=== PATIENT | female | born 1990 | race Caucasian/White ===

== ENCOUNTER 2017-05-13 19:08 | Emergency (ER) | payer BC, MEDICAID, SELFPAY ==
[2017-05-13 19:09] VITALS: BP 142/100; PULSE 74; RESP 18; TEMP 37.2; O2SAT 99; BMI 35.2
[2017-05-13 20:13] LABS: Mucous, Urine 0 SEEN /hpf (<or=2+)
[2017-05-13 20:15] LABS: Color, Urine Red (Yellow); Glucose, Dipstick Normal (Normal); Ketone-Dipstick 5 mg/dl (Negative); Leukocyte Esterase-Dipstick 100 /ul (Negative); Occult Blood-Urine 250 /ul (Negative); Protein-Dipstick 100 mg/dl (Negative); Urine Bilirubin Dipstick Negative (Negative); Urine Clarity Cloudy (Clear)
[2017-05-13 20:16] LABS: Internal QC Validated? YES +Cl - CLEAR BKGD; Pregnancy, Urine Negative Negative
[2017-05-13 20:22] LABS: Nitrite-Dipstick Positive (Negative); Specific Gravity, Urine 1.025 (1.002-1.030); Urine Urobilinogen 1 mg/dl (Normal)
[2017-05-13 20:28] LABS: Red Blood Cells-Urine 50-100 SEEN /hpf (0-5)
[2017-05-13 20:29] LABS: Squamous Epithelial Cells - UA 25-50 SEEN /hpf (5-10)
[2017-05-13 20:30] LABS: White Blood Cells 10-25 SEEN /hpf (0-5)
[2017-05-13 20:34] LABS: Bacteria 3+ /hpf (None Seen)
--- NOTE | 2017-05-13 20:53 | ED.VISSUMM ---
- ER Visit Summary Date of Service: 05/13/17 Chief Complaint: Acute left flank pain History of Present Illness: The patient is a 26 F 3 UTIs and kidney stones. Patient states that she developed sudden onset flank pain about 2 hours ago. Feels like her prior kidney stone. The last time she had she needed to have it removed and had a ureteral stent placed. Physical Examination: Well-appearing young female. Vital signs are stable afebrile. No acute distress. HEENT exam unremarkable. Neck nontender. Lungs clear to auscultation bilaterally. Heart regular rate and rhythm no murmur. Rate about 70. Abdomen is soft and nontender. Normal bowel sounds no peritoneal signs. She is moving all 4 extremities. Neurovascular intact. Back exam nontender. No CVA tenderness. Neurologically she is awake alert with no focal deficits. Test Results: UA is contaminated specimen with 25-50 epithelial cells. He also has 10-20 white cells and vagina red cells positive nitrates. test is negative. CT flank shows a right renal stone but no acute ureteral calculi or anything to account for her pain on the left. A repeat UA was done because the first was contaminated and it is similar with epithelial cells but white cells and nitrates. This will be treated as a UTI. A urine culture was sent. Emergency Department Course and Treatment: Patient only wanted oral meds. She will be treated with one Stryker one Zofran. We given her first dose of Keflex for the UTI. Treatment Plan: Keflex 500 4 times daily for 10 days. Urine culture sent. Discharge home and follow-up with her primary care physician Dr. García or Dr. Javed Castillo her urologist. Disposition: Discharge Impression: Acute left flank pain compared to UTI This note was generated with Locappy dictation software. It may contain incorrect words, spelling, and punctuation that were not noted in review of the chart prior to signing ED Disposition - Plan for ED Patient: Chief Complaint: Flank Pain Referrals: Shahab Rodriguez MD [Primary Care Provider] -
--- NOTE | 2017-05-13 21:00 | CT_ITS ---
STUDY: CT ABDOMEN AND PELVIS WITHOUT CONTRAST REASON FOR EXAM: Female, 26 years old. Left-sided flank pain RADIATION DOSAGE (If Supplied By Facility): CTDIvol = ( 12.48 ) mGy, DLP = ( 685.97 ) mGycm TECHNIQUE: Transaxial images were obtained from the dome of the diaphragm to the symphysis pubis without oral contrast, and without intravenous contrast. Sagittal and coronal images were reconstructed. Individualized dose optimization techniques were used for this CT. COMPARISON: August 31, 2016 FINDINGS: The visualized lung bases are unremarkable. The visualized portions of the heart are within normal limits. Normal liver. Normal gallbladder and extrahepatic biliary system. Normal spleen. Normal pancreas. Normal bilateral adrenal glands. There is a punctate nonobstructing nephrolith on the right. Normal left kidney. Normal visualized stomach. Normal small intestine. Normal colon. The appendix is visualized and appears normal. Normal abdominal aorta. Normal inferior vena cava. Normal retroperitoneum. Normal urinary bladder. The uterus appears normal. Normal abdominal wall. Normal osseous structures. CT/Abdomen/Pelvis without Cont IMPRESSION: Punctate nonobstructing nephrolith on the right. No cause for left-sided flank pain identified. Electronically Signed: Ismael Hernandez MD at 21:53 EST , Service support ,
[2017-05-13 21:44] LABS: Mucous, Urine 0 SEEN /hpf (<or=2+)
[2017-05-13 22:12] LABS: Color, Urine Red (Yellow); Glucose, Dipstick Normal (Normal); Ketone-Dipstick 15 mg/dl (Negative); Leukocyte Esterase-Dipstick 100 /ul (Negative); Nitrite-Dipstick Positive (Negative); Occult Blood-Urine 250 /ul (Negative); Protein-Dipstick 100 mg/dl (Negative); Urine Bilirubin Dipstick Negative (Negative); Urine Clarity Cloudy (Clear); Urine Urobilinogen 4 mg/dl (Normal); Urine pH 6.5 (5.0 - 8.0)
[2017-05-13 22:15] LABS: Bacteria 3+ /hpf (None Seen)
[2017-05-13 22:16] LABS: Squamous Epithelial Cells - UA 5-10 SEEN /hpf (5-10); White Blood Cells 25-50 SEEN /hpf (0-5)
[2017-05-13 22:18] LABS: Red Blood Cells-Urine 50-100 SEEN /hpf (0-5)
--- NOTE | 2017-05-13 23:27 | DCINST.ED_ITS ---
ED Disposition - Plan for ED Patient: Disposition: Home or Assisted Living Chief Complaint: Flank Pain Instructions: ED Kidney Infec Female Prescriptions: Cephalexin [Keflex] 500 mg PO Q6 #30 cap Referrals: Shahab Rodriguez MD [Primary Care Provider] - 3-5 Days Magno Josue MD [STAFF PHYSICIAN] - 1 Week if not improving Additional Instructions: Plenty of fluids and rest. Cranberry juice. Limited [place] for tympanic. Otherwise Tylenol and Motrin for pain. Your CAT scan showed no acute kidney stone. The pain seems to be secondary to a urinary tract infection. He will be started on Keflex and antibiotic he will take 4 times a day till gone. A urine culture was sent your doctor can follow the results of that up to make sure the antibiotic covers the bacteria that is causing the infection. Return if you are feeling worse.
[2017-05-14] MEDS: Ondansetron ODT 4 MG Tablet PO (00:22)
[2017-05-14] MEDS: Cephalexin 250 MG Capsule 500 MG PO (00:22)
[2017-05-14] MEDS: HYDROcodone Bitartrate/Apap 5/325 Tablet PO (00:22)
[2017-05-14 00:23] VITALS: BP 131/80; PULSE 76; RESP 16; O2SAT 98
== END 2017-05-14 00:27 | disposition home or self-care (01) ==
PROVIDERS: Emergency Provider Emergency Medicine; Family Provider Family Medicine; PCP Family Medicine
DX: N39.0 Urinary tract infection, site not specified (principal); R10.9 Unspecified abdominal pain; N20.0 Calculus of kidney; Z87.440 Personal history of urinary (tract) infections; Z87.442 Personal history of urinary calculi; Z72.0 Tobacco use
CPT/HCPCS: 74176; 81001; 81025; 87077; 87086; 87088; 87186; 99282

== ENCOUNTER 2017-08-06 22:41 | Emergency (ER) | payer BC, MEDICAID, SELFPAY ==
[2017-08-06 22:43] VITALS: BP 129/92; PULSE 86; RESP 18; TEMP 36.9; O2SAT 99; BMI 32.5
--- NOTE | 2017-08-06 22:56 | CT_ITS ---
STUDY: CT ABDOMEN AND PELVIS WITHOUT CONTRAST REASON FOR EXAM: Female, 26 years old. Left flank pain RADIATION DOSAGE (If Supplied By Facility): CTDIvol = ( 12.83 ) mGy, DLP = ( 634.67 ) mGycm TECHNIQUE: Transaxial images were obtained from the dome of the diaphragm to the symphysis pubis without oral contrast, and without intravenous contrast. Sagittal and coronal images were reconstructed. Individualized dose optimization techniques were used for this CT. COMPARISON: 05/13/2017 FINDINGS: The visualized lung bases are unremarkable. The visualized portions of the heart are within normal limits. Normal liver. Normal gallbladder and extrahepatic biliary system. Normal spleen. Normal pancreas. Normal bilateral adrenal glands. 2 mm nonobstructing right renal stone. Normal left kidney. Normal visualized stomach. Normal small intestine. Normal colon. The appendix is visualized and appears normal. Normal abdominal aorta. Normal inferior vena cava. Normal retroperitoneum. Normal urinary bladder. Normal abdominal wall. Normal osseous structures. CT/Abdomen/Pelvis without Cont IMPRESSION: No evidence of acute intestinal pathology or acute obstructive uropathy. Electronically Signed: Bryon Baeza MD at 2:22 EDT Tel , Service support ,
[2017-08-06] MEDS: Ondansetron 4 MG/2 ML Vial IV (23:11)
[2017-08-06] MEDS: Ketorolac 30 MG/ML Syringe IV (23:11)
[2017-08-06] MEDS: 0.9% Normal Saline 1,000 ML 1000 ML IV (23:11)
[2017-08-06 23:12] LABS: Mucous, Urine 0 SEEN /hpf (<or=2+); Red Blood Cells-Urine 0 SEEN /hpf (0-5)
[2017-08-06 23:14] LABS: Absolute Neutrophil Count 6.7 X10^3/uL (2.0-7.7); Basophil# 0.04 X10^3/uL; Basophil% 0.4 % (0-1); Eosinophil# 0.09 X10^3/uL; Eosinophils% 0.8 % (0-5); Hematocrit 40.3 % (37-47); Hemoglobin 13.9 g/dl (12.0-15.0); Lymphocyte % 31.7 % (19-41); Mean Corp Hgb Conc 34.5 g/gl (32-36); Mean Corpuscular Hgb 29.9 pg (27.0-32.0); Mean Corpuscular Volume 86.7 fL (81-99); Mean Platelet Vol. 10.2 fl (6.2-12.0); Monocyte# 0.49 X10^3/uL; Monocyte% 4.6 % (0-10); Neutrophil # 6.68 X10^3/uL (2.7-7.7); Neutrophil % 62.3 % (47-70); Platelet Count 250 K/mm3 (150-450); RBC Distribution Width CV 11.9 % (11.6-14.6); RBC Distribution Width SD 37.2 fl (35.1-43.9); Red Blood Count 4.65 M/mm3 (4.2-5.4); White Blood Count 10.7 K/mm3 (4.4-11.0)
[2017-08-06 23:15] LABS: POSITIVE COUNT NO; POSITIVE DIFFERENTIAL NO; POSITIVE MORPHOLOGY NO
[2017-08-06 23:23] LABS: Color, Urine Yellow (Yellow); Glucose, Dipstick Normal (Normal); Ketone-Dipstick 5 mg/dl (Negative); Leukocyte Esterase-Dipstick 500 /ul (Negative); Nitrite-Dipstick Positive (Negative); Occult Blood-Urine 10 /ul (Negative); Protein-Dipstick 30 mg/dl (Negative); Specific Gravity, Urine 1.025 (1.002-1.030); Urine Bilirubin Dipstick Negative (Negative); Urine Clarity Cloudy (Clear); Urine Urobilinogen Normal (Normal)
[2017-08-06 23:30] LABS: Bacteria 3+ /hpf (None Seen); Squamous Epithelial Cells - UA 5-10 SEEN /hpf (5-10)
[2017-08-06 23:31] LABS: White Blood Cells 50-100 SEEN /hpf (0-5)
[2017-08-06 23:32] LABS: Anion Gap 7 (5-15); BUN 17 mg/dL (7-18); BUN/Creat Ratio 21.3 RATIO (10-20); Calcium,Total 8.7 mg/dL (8.5-10.1); Chloride 109 mmol/L (98-107); EST Glomerular Filtration Rate 91 mL/min (>60); Est Glom Filt Rate - Afr Amer 110 mL/min (>60); Estimated Creatinine Clearance 95.05 ml/min; Glucose 111 mg/dL (74-106); Potassium 3.3 mmol/L (3.5-5.1); Sodium Level 141 mmol/L (136-145)
--- NOTE | 2017-08-07 02:41 | ED.DCSUM_ITS ---
- ER Visit Summary Date of Service: 08/07/17 Chief Complaint: Flank pain History of Present Illness: The patient is a 26 F who presents with left flank pain. It initially began about 2 hours ago. It is sharp. She currently rates it as an 8 out of 10. She is concerned because she has a history of kidney stones. She has also noted some odor to her urine and did have a follow-up appointment scheduled with urology. She reports nausea without vomiting. No fevers. Physical Examination: Afebrile vitals are normal Moist mucous membranes Heart regular rate and rhythm Lungs are clear Abdomen soft Patient resting comfortably in no distress Patient does have left CVA tenderness which is mild Test Results: Labs notable for potassium 3.3. Urinalysis shows 500 leukocyte esterase positive nitrates 50-100 WBCs and 3+ bacteria. CT flank shows no acute pathology. Emergency Department Course and Treatment: Patient was treated here with IV fluids Toradol Zofran. She is resting comfortably on reevaluation. She was given a dose of Bactrim and prescription for the same. Although she has left flank pain she is not tachycardic she is not febrile she does not have leukocytosis she does not have vomiting. I do not believe that she has acute pyelonephritis. Was instructed on supportive care. She is instructed on signs and symptoms to monitor for and will follow-up as an outpatient. Treatment Plan: [] Disposition: Discharge Impression: Left flank pain UTI This note was generated with Ambature dictation software. It may contain incorrect words, spelling, and punctuation that were not noted in review of the chart prior to signing ED Disposition - Plan for ED Patient: Chief Complaint: Flank Pain Referrals: Shahab Rodriguez MD [Primary Care Provider] -
--- NOTE | 2017-08-07 02:41 | ED.DEP ---
ED Disposition - Plan for ED Patient: Chief Complaint: Flank Pain Instructions: ED Flank Pain Uncertain Cause, ED UTI Cystitis Female Prescriptions: Smz/Tmp Ds [Bactrim Ds] 1 tab PO BID #10 tab Referrals: Shahab Rodriguez MD [Primary Care Provider] -
[2017-08-07 02:56] VITALS: BP 114/79; PULSE 76; RESP 19; O2SAT 98
--- NOTE | 2017-08-07 02:57 | ED.RN ---
IV DC'ED, CATHETER INTACT, SMALL GAUZE DRESSING PLACED. DISCHARGE INSTRUCTIONS GIVEN TO AND REVIEWED WITH PATIENT, PATIENT DENIES QUESTIONS OR CONCERNS AND VOICES UNDERSTANDING OF DISCHARGE INSTRUCTIONS.
== END 2017-08-07 02:57 | disposition home or self-care (01) ==
PROVIDERS: Emergency Provider Emergency Medicine; Family Provider Family Medicine; PCP Family Medicine
DX: N39.0 Urinary tract infection, site not specified (principal); R10.9 Unspecified abdominal pain; Z87.442 Personal history of urinary calculi
CPT/HCPCS: 74176; 80048; 81001; 85025; 96361; 96374; 96375; 99283; A4216; J2405

== ENCOUNTER 2017-09-22 14:27 | Emergency (ER) | payer BC, MEDICAID, SELFPAY ==
[2017-09-22 14:28] VITALS: BP 165/130; PULSE 99; RESP 13; TEMP 37; O2SAT 99; BMI 31.6
[2017-09-22 14:35] VITALS: BP 169/100; PULSE 93; RESP 17; O2SAT 97
[2017-09-22 14:55] LABS: Red Blood Cells-Urine 0 SEEN /hpf (0-5)
[2017-09-22 15:12] LABS: Color, Urine Yellow (Yellow); Glucose, Dipstick Normal (Normal); Ketone-Dipstick 5 mg/dl (Negative); Leukocyte Esterase-Dipstick 25 /ul (Negative); Nitrite-Dipstick Positive (Negative); Occult Blood-Urine Negative /ul (Negative); Protein-Dipstick 15 mg/dl (Negative); Urine Bilirubin Dipstick Negative (Negative); Urine Clarity Clear (Clear); Urine Urobilinogen Normal (Normal)
[2017-09-22 15:24] LABS: White Blood Cells 0-5 SEEN /hpf (0-5)
[2017-09-22 15:25] LABS: Squamous Epithelial Cells - UA 5-10 SEEN /hpf (5-10)
[2017-09-22 15:26] LABS: Bacteria 3+ /hpf (None Seen); Calcium Oxalate Crystals Ur 1+ /hpf (<or=2+); Mucous, Urine 1+ /hpf (<or=2+)
--- NOTE | 2017-09-22 15:37 | ED.VISSUMM ---
- ER Visit Summary Date of Service: 09/22/17 Chief Complaint: [Back/flank pain] History of Present Illness: The patient is a 26 F [presents the emergency department with complain of pain in her low back. Patient states symptoms started 2 days ago. Patient denies any trauma to her back. Patient states she does have history of frequent kidney stones and frequent UTIs. Patient states that this pain does not feel like a kidney stone. Patient has not had any fevers. She has had no vomiting. She denies dysuria or hematuria. She denies frequency. Patient denies pain radiating down her legs. Physical Examination: [HEENT-PERRLA, EOMI. Cranial nerves II through XII grossly intact. TMs clear. Mucous membranes moist. No adenopathy. Cardiovascular-regular rate and rhythm without murmur or ectopy Lungs-clear to auscultation, chest wall stable without crepitus or subcu emphysema Abdomen-normoactive bowel sounds, soft, nontender, no rebound or rigidity, no peritoneal signs. Minimal CVA tenderness bilaterally. Back exam-patient has no tenderness on palpation of her thoracic or lumbar spine. There is no significant tenderness over the lumbar paraspinal musculature. Patient has negative straight leg raises. Deep tendon reflexes are plus 2 out of 4 bilaterally at the patella and Achilles. Extremities-intact ?4, normal range of motion, normal pulses, atraumatic] Test Results: [Urinalysis obtained was positive for nitrites positive for 25 leukocyte esterase and 0-5 WBCs. Patient did have +3 bacteria.] Emergency Department Course and Treatment: [Patient had a urine culture sent and she was started on Bactrim] Treatment Plan: [We will treat patient with Bactrim for 5 days and advised to follow-up with her primary care physician within next 3-5 days. Patient advised to return if fever, vomiting, worsening pain, or condition should worsen in any way.] Disposition: [Discharged home in stable condition] Impression: UTI Back pain [] This note was generated with BioArray dictation software. It may contain incorrect words, spelling, and punctuation that were not noted in review of the chart prior to signing ED Disposition - Plan for ED Patient: Chief Complaint: Flank Pain Referrals: Shahab Rodriguez MD [Primary Care Provider] -
--- NOTE | 2017-09-22 15:40 | ED.DEP ---
ED Disposition - Plan for ED Patient: Chief Complaint: Flank Pain Instructions: ED UTI Cystitis Female, ED Neck Back Pain General Prescriptions: Smz/Tmp Ds [Bactrim Ds] 1 tab PO BID #10 tab Referrals: Shahab Rodriguez MD [Primary Care Provider] - 3-5 Days
[2017-09-22 15:44] VITALS: BP 169/94; PULSE 73; RESP 16; O2SAT 100
[2017-09-22] MEDS: Smz/Tmp Ds Tablet 1 TABLET PO (15:44)
== END 2017-09-22 15:49 | disposition home or self-care (01) ==
PROVIDERS: Emergency Provider Emergency Medicine; Family Provider Family Medicine; PCP Family Medicine
DX: N39.0 Urinary tract infection, site not specified (principal); M54.5 Low back pain; Z87.442 Personal history of urinary calculi; Z87.440 Personal history of urinary (tract) infections
CPT/HCPCS: 81001; 87086; 87088; 87186; 99283

== ENCOUNTER 2017-10-20 17:34 | Emergency (ER) | payer BC, MEDICAID, SELFPAY ==
[2017-10-20 17:34] VITALS: BP 159/96; PULSE 93; RESP 18; TEMP 36.6; O2SAT 99; BMI 30.4
[2017-10-20 17:56] LABS: Bacteria 0 SEEN /hpf (None Seen); Mucous, Urine 0 SEEN /hpf (<or=2+)
[2017-10-20 18:02] LABS: Color, Urine Yellow (Yellow); Glucose, Dipstick Normal (Normal); Ketone-Dipstick Negative (Negative); Leukocyte Esterase-Dipstick 25 /ul (Negative); Nitrite-Dipstick Negative (Negative); Occult Blood-Urine 250 /ul (Negative); Protein-Dipstick 30 mg/dl (Negative); Specific Gravity, Urine 1.025 (1.002-1.030); Urine Bilirubin Dipstick Negative (Negative); Urine Clarity Sl. Cloudy (Clear); Urine Urobilinogen 1 mg/dl (Normal)
[2017-10-20 18:06] LABS: Internal QC Validated? YES +Cl - CLEAR BKGD; Pregnancy, Urine Negative Negative
--- NOTE | 2017-10-20 18:08 | ED.VISSUMM ---
- ER Visit Summary Date of Service: 10/20/17 Chief Complaint: Flank pain History of Present Illness: The patient is a 26 F with left-sided flank pain that started while work gradually it is not intense, she has history of kidney stone this does not feel like a kidney stone. She has no abdominal pain. No recent hematuria. She denies , no vaginal discharge or dyspareunia. Pain is not mechanical is not worse with twisting turning or bending. Physical Examination: Not appear in acute distress. Moist mucous membranes, no obvious facial deformity No C-spine tenderness supple neck. Regular rate and rhythm without any obvious murmurs Clear lungs bilaterally speaking in full sentences without any obvious respiratory distress Abdomen soft and nontender no guarding or rebound. There is left CVA tenderness but vague and not easily reproduced. Moves all extremities without any difficulty or pain. Skin does not show any obvious rashes or lesions, no trauma. Alert oriented ?3 with no gross focal deficit Emergency Department Course and Treatment: Patient is found to have a urinary tract infection, at this time she appears quite comfortable, she did not get any analgesia. She does not appear like a kidney stone thus I doubt it, however I did warn her that if she has symptoms similar to her kidney stone or severe pain, fever chills she is to return to the emergency department she understands this. At this time I will treat her with antibiotics. Disposition: Discharge stable condition Impression: Urinary tract infection This note was generated with VISup dictation software. It may contain incorrect words, spelling, and punctuation that were not noted in review of the chart prior to signing ED Disposition - Plan for ED Patient: Disposition: Home or Assisted Living Chief Complaint: Back Instructions: ED UTI Cystitis Female Prescriptions: Smz/Tmp Ds [Bactrim Ds] 1 tab PO BID #20 tab Referrals: Shahab Rodriguez MD [Primary Care Provider] - 3-5 Days
[2017-10-20 18:10] LABS: Red Blood Cells-Urine 10-25 SEEN /hpf (0-5); Squamous Epithelial Cells - UA 0-5 SEEN /hpf (5-10); White Blood Cells 0-5 SEEN /hpf (0-5)
[2017-10-20] MEDS: Smz/Tmp Ds Tablet 1 TABLET PO (19:04)
== END 2017-10-20 19:06 | disposition home or self-care (01) ==
PROVIDERS: Emergency Provider Emergency Medicine; Family Provider Family Medicine; PCP Family Medicine
DX: N39.0 Urinary tract infection, site not specified (principal); R10.9 Unspecified abdominal pain; Z87.442 Personal history of urinary calculi
CPT/HCPCS: 81001; 81025; 99283

== ENCOUNTER 2018-02-26 16:28 | Emergency (ER) | payer BC, SELFPAY ==
[2018-02-26 16:29] VITALS: PULSE 103; RESP 18; TEMP 36.2; O2SAT 98; BMI 31.4
--- NOTE | 2018-02-26 17:03 | CT_ITS ---
STUDY: CT ABDOMEN AND PELVIS WITHOUT CONTRAST REASON FOR EXAM: Female, 27 years old. Bilateral flank pain RADIATION DOSAGE (If Supplied By Facility): CTDIvol = ( 9.51 ) mGy, DLP = ( 463.48 ) mGycm TECHNIQUE: Transaxial images were obtained from the dome of the diaphragm to the symphysis pubis without oral contrast, and without intravenous contrast. Sagittal and coronal images were reconstructed. Individualized dose optimization techniques were used for this CT. COMPARISON: 08/07/2017 FINDINGS: The visualized lung bases are unremarkable. The visualized portions of the heart are within normal limits. Normal liver. Normal gallbladder and extrahepatic biliary system. Normal spleen. Normal pancreas. Normal bilateral adrenal glands. There is mild right hydronephrosis and hydroureter. Findings are due to a 4 mm stone in the proximal right ureter best seen on axial image 58. Normal left kidney. Normal visualized stomach. Normal small intestine. Normal colon. The appendix is visualized and appears normal. Normal abdominal aorta. Normal inferior vena cava. Normal retroperitoneum. Normal urinary bladder. Normal abdominal wall. Normal osseous structures. CT/Abdomen/Pelvis without Cont IMPRESSION: 4 mm calcification in the proximal right ureter causing mild right hydronephrosis and hydroureter Electronically Signed: Jaziel Owens MD at 18:18 EST , Service support ,
--- NOTE | 2018-02-26 17:06 | ED.DCSUM_ITS ---
- ER Visit Summary Date of Service: 02/26/18 Chief Complaint: Low back pain History of Present Illness: The patient is a 27 F presenting with low back pain. She states this started this afternoon. She denies trauma. Pain is on both sides. She tried Tylenol at home with no relief. She has history of kidney stones requiring ureteral stents. She denies urinary complaints. Denies fever. Denies other complaints Physical Examination: Vitals are stable. Patient is afebrile. Alert no acute distress. HEENT exam is unremarkable. Neck is supple. Lungs are clear and equal bilaterally. Heart is regular rate and rhythm. Abdomen is soft nontender nondistended. No guarding or rebound Back: Bilateral CVA tenderness Extremities are unremarkable. Skin is warm and dry. Remainder of exam is unremarkable. Emergency Department Course and Treatment: Patient is given morphine, Zofran. Urinalysis shows positive nitrite, 5-10 white blood cells, 50-100 red blood cells. Urine culture is sent. HCG negative. CT abdomen pelvis shows 4 mm calcification in the proximal right ureter causing mild right hydronephrosis and hydroureter. On reevaluation, patient is feeling much improved. She is given prescription for Percocet and Cipro. Discussed with Dr. Josue. Patient will follow-up in the office. Patient is advised to return to ED for any worsening complaints. Disposition: Discharge home Impression: Urolithiasis, UTI This note was generated with Innov[employer] dictation software. It may contain incorrect words, spelling, and punctuation that were not noted in review of the chart prior to signing ED Disposition - Plan for ED Patient: Chief Complaint: Back Referrals: Shahab Rodriguez MD [Primary Care Provider] -
[2018-02-26 17:21] LABS: Mucous, Urine 0 SEEN /hpf (<or=2+); Squamous Epithelial Cells - UA 0 SEEN /hpf (5-10)
[2018-02-26 17:31] LABS: Color, Urine Yellow (Yellow); Glucose, Dipstick Normal (Normal); Ketone-Dipstick Negative (Negative); Leukocyte Esterase-Dipstick 25 /ul (Negative); Nitrite-Dipstick Positive (Negative); Occult Blood-Urine 250 /ul (Negative); Protein-Dipstick Negative (Negative); Specific Gravity, Urine 1.015 (1.002-1.030); Urine Bilirubin Dipstick Negative (Negative); Urine Clarity Cloudy (Clear); Urine Urobilinogen Normal (Normal)
[2018-02-26 17:33] LABS: Internal QC Validated? YES +Cl - CLEAR BKGD; Pregnancy, Urine Negative Negative
[2018-02-26] MEDS: Morphine 4 MG/ML Syringe IV (17:35)
[2018-02-26] MEDS: Ondansetron 4 MG/2 ML Vial IV (17:35)
[2018-02-26 17:39] LABS: Bacteria 3+ /hpf (None Seen); Red Blood Cells-Urine 50-100 SEEN /hpf (0-5)
[2018-02-26 17:40] LABS: White Blood Cells 5-10 SEEN /hpf (0-5)
--- NOTE | 2018-02-26 18:50 | ED.DEP ---
ED Disposition - Plan for ED Patient: Chief Complaint: Back Instructions: ED Stone Renal W Colic Prescriptions: Oxycodone HCl/Acetaminophen [Percocet 5/325] 1 tablet PO Q6H PRN PRN 3 Days #12 tablet PRN Reason: Pain Ciprofloxacin [Cipro] 500 mg PO BID #14 tablet Referrals: Shahab Rodriguez MD [Primary Care Provider] - Magno Josue MD [STAFF PHYSICIAN] -
[2018-02-26 18:51] VITALS: BP 138/81; PULSE 81; RESP 18; O2SAT 97
[2018-02-26] MEDS: Ciprofloxacin 500 MG Tablet PO (19:18)
--- NOTE | 2018-02-26 19:20 | ED.DEP ---
ED Disposition - Plan for ED Patient: Chief Complaint: Back Instructions: ED Stone Renal W Colic Prescriptions: Oxycodone HCl/Acetaminophen [Percocet 5/325] 1 tablet PO Q6H PRN PRN 3 Days #12 tablet PRN Reason: Pain Fluconazole [Diflucan] 150 mg PO X1 #1 tablet Ciprofloxacin [Cipro] 500 mg PO BID #14 tablet Referrals: Shahab Rodriguez MD [Primary Care Provider] - Magno Josue MD [STAFF PHYSICIAN] -
[2018-02-26 19:21] VITALS: BP 127/87; PULSE 65; RESP 16; O2SAT 100
== END 2018-02-26 19:25 | disposition home or self-care (01) ==
PROVIDERS: Emergency Provider Emergency Medicine; Family Provider Family Medicine; PCP Family Medicine
DX: N13.2 Hydronephrosis with renal and ureteral calculous obstruction (principal); N39.0 Urinary tract infection, site not specified; Z87.442 Personal history of urinary calculi
CPT/HCPCS: 74176; 81001; 81025; 87086; 87088; 87186; 96374; 96375; 99283; A4216; J2405

== ENCOUNTER 2018-03-01 | Emergency (ER) | payer BC, SELFPAY ==
[2018-03-01 00:01] VITALS: BP 149/92; PULSE 83; RESP 16; TEMP 36.1; O2SAT 99; BMI 30.9
--- NOTE | 2018-03-01 00:14 | ED.DCSUM_ITS ---
- ER Visit Summary Date of Service: 03/01/18 Chief Complaint: Severe right flank pain History of Present Illness: The patient is a 27 F who was seen on February 26 and diagnosed with a proximal 4 mm right ureteral calculus with hydro-ureter and hydronephrosis, mild. She presents because of increased pain. Last dose of oxycodone 20-30. She does report nausea without vomiting. She reports urgency without frequency, dysuria or hematuria. She also is taking antibiotics since her urine was consistent with infection. She denies fever, chills or night sweats. She denies ocular, visual auditory symptoms. She denies chest pain or palpitations. She denies shortness of breath or difficulty breathing. She does complain of right-sided mid anterior abdominal discomfort as well as right flank pain. She has no other complaints. Please read written note Physical Examination: Vital signs remarkable blood pressure 149/92. Temperature is 97.0?F. HEENT exam is unremarkable. Heart is regular without murmur, gallop or rub. S1 and S2 are normal. Lungs are clear to auscultation with good movement of air bilaterally. Abdomen is soft nontender. There is no guarding or peritoneal findings. Bowel sounds are present and diminished. There is right CVA tenderness noted. There is no skin lesion noted. Neuro exam is nonfocal. Test Results: UA is positive for leukoesterase and blood 25 and 50 respectively. Nitrites negative. No bacteria Emergency Department Course and Treatment: UA was obtained since prior urinalysis was remarkable for pyuria and bacteria. IV was established and she was treated with 15 mg Toradol IV push and 4 mg of Zofran IV push. Treatment Plan: Patient was reassessed at 0108. She is pain-free smiling. Discharge with prescription for NSAID and keep appointment with her urologist Disposition: Discharge to home in stable and improved condition with significant other Impression: Right flank pain secondary to proximal 4 mm right ureteral calculus with hydroureter and hydronephrosis This note was generated with Digifeye dictation software. It may contain incorrect words, spelling, and punctuation that were not noted in review of the chart prior to signing ED Disposition - Plan for ED Patient: Disposition: Home or Assisted Living Chief Complaint: Flank Pain Instructions: ED Stone Renal W Colic Prescriptions: Naproxen [Naprosyn] 500 mg PO BID #14 tab Referrals: Shahab Rodriguez MD [Primary Care Provider] - Keep Elvis appointment
[2018-03-01] MEDS: Ondansetron 4 MG/2 ML Vial IV (00:24)
[2018-03-01] MEDS: Ketorolac 30 MG/ML Syringe 15 MG IV (00:24)
[2018-03-01] MEDS: 0.9% Normal Saline 1,000 ML 250 ML IV (00:24)
[2018-03-01 00:52] LABS: Bacteria 0 SEEN /hpf (None Seen); Color, Urine Yellow (Yellow); Glucose, Dipstick Normal (Normal); Ketone-Dipstick Negative (Negative); Leukocyte Esterase-Dipstick 25 /ul (Negative); Nitrite-Dipstick Negative (Negative); Occult Blood-Urine 50 /ul (Negative); Protein-Dipstick 15 mg/dl (Negative); Urine Bilirubin Dipstick Negative (Negative); Urine Clarity Sl. Cloudy (Clear); Urine Urobilinogen Normal (Normal)
[2018-03-01 00:59] LABS: Red Blood Cells-Urine 0-5 SEEN /hpf (0-5); Squamous Epithelial Cells - UA 0-5 SEEN /hpf (5-10); White Blood Cells 0-5 SEEN /hpf (0-5)
[2018-03-01 01:00] LABS: Mucous, Urine 1+ /hpf (<or=2+)
[2018-03-01 01:32] VITALS: RESP 16
== END 2018-03-01 01:32 | disposition home or self-care (01) ==
PROVIDERS: Emergency Provider Emergency Medicine; Family Provider Family Medicine; PCP Family Medicine
DX: N13.2 Hydronephrosis with renal and ureteral calculous obstruction (principal); R10.9 Unspecified abdominal pain; E66.9 Obesity, unspecified; Z79.2 Long term (current) use of antibiotics
CPT/HCPCS: 81001; 96361; 96374; 96375; 99283; J7030; J2405

== ENCOUNTER 2018-03-02 05:18 | Emergency (ER) | payer BC, SELFPAY ==
[2018-03-01 00:01] VITALS: BMI 30.9
[2018-03-02 05:19] VITALS: BP 172/113; PULSE 85; RESP 16; TEMP 36.6; O2SAT 99; BMI 30.4
[2018-03-02 05:21] VITALS: BP 161/123
[2018-03-02] MEDS: 0.9% Normal Saline 1,000 ML 1000 ML IV (05:38)
[2018-03-02] MEDS: Morphine 4 MG/ML Syringe IV (05:38)
[2018-03-02] MEDS: Ketorolac 30 MG/ML Syringe IV (05:39)
[2018-03-02] MEDS: Ondansetron 4 MG/2 ML Vial IV (05:39)
--- NOTE | 2018-03-02 05:53 | ED.VISSUMM ---
- ER Visit Summary Date of Service: 03/02/18 Chief Complaint: Right flank pain History of Present Illness: The patient is a [address] Rodriguez and her urologist is Dr. Rendon at [facility]. She reports she has right flank pain that began 3 days ago. She was seen in emerge department was diagnosed with a 4 mm right ureteral stone. States that she was discharged on oxycodone. However, she has been vomiting and unable to keep this down. She describes a dull, aching pain in the right flank is 10-10 severity. Is worsened by nothing. Is also relieved by nothing. She reports is been nausea and vomited twice. No blood or emesis. No diarrhea. Her last bowel was yesterday. She has had no melena or hematochezia. No dysuria frequency. She is on her menstrual cycle now. Physical Examination: Vitals: Stable. Afebrile. General: Well-nourished and well-developed. Head: Normocephalic atraumatic. Neck: Supple, no lymphadenopathy. No JVD. Nontender. Cardiovascular: Regular rate and rhythm. No murmurs. Respiratory: No respiratory distress. Clear to auscultation bilaterally. Abdominal: Soft, nontender, nondistended, normal bowel sounds. No guarding, rebound, or peritoneal signs. Back: Nontender. Extremities: Nontender, no edema. Skin: Normal color, no rash. Neurologic: Alert and oriented ?3. Cranial nerves II through XII are intact. Normal strength and sensation. Psych: Normal affect. Test Results: Patient had a UA that was negative yesterday. This was not repeated. She had a urine culture on February 26 that grew greater than 100,000 colony-forming units of E. coli. This is pansensitive. She is on Cipro already. Emergency Department Course and Treatment: Patient had an IV placed. She was given Toradol, morphine, and Zofran IV. She is resting comfortably. Treatment Plan: Patient will be discharged with instructions to continue her naproxen and Percocet. She will be given Zofran for nausea. Instructed to follow-up with her urologist on March 06 as previously scheduled. Return to the emergency department for any worsening symptoms. Disposition: To home in improved and stable condition. Impression: 1. Right ureterolithiasis. This note was generated with Dragon dictation software. It may contain incorrect words, spelling, and punctuation that were not noted in review of the chart prior to signing ED Disposition - Plan for ED Patient: Chief Complaint: Complaint Instructions: ED Stone Renal W Colic Prescriptions: Oxycodone HCl/Acetaminophen [Percocet 5/325] 1 tablet PO Q6H PRN PRN 3 Days #12 tablet PRN Reason: Pain Ondansetron [Zofran Odt] 4 mg PO Q8H PRN PRN #10 tablet PRN Reason: Nausea Referrals: Doctor,Your [STAFF PHYSICIAN] - Keep Elvis appointment
[2018-03-02] MEDS: oxyCODONE 5 MG Tablet PO (07:05)
[2018-03-02] MEDS: Ondansetron ODT 4 MG Tablet PO (07:05)
[2018-03-02 07:07] VITALS: BP 108/71; PULSE 77; O2SAT 97
== END 2018-03-02 07:07 | disposition home or self-care (01) ==
PROVIDERS: Emergency Provider Emergency Medicine; Family Provider Family Medicine; PCP Family Medicine
DX: N20.1 Calculus of ureter (principal); Z87.442 Personal history of urinary calculi; Z79.2 Long term (current) use of antibiotics; Z79.891 Long term (current) use of opiate analgesic
CPT/HCPCS: 96361; 96374; 96375; 99283; J7030; A4216; J2405

== ENCOUNTER 2018-03-12 07:52 | Emergency (ER) | payer BC, SELFPAY ==
[2018-03-12 07:54] VITALS: BP 145/100; PULSE 106; RESP 18; TEMP 35.7; O2SAT 100; BMI 30.3
--- NOTE | 2018-03-12 08:08 | CT_ITS ---
STUDY: CT ABDOMEN AND PELVIS WITHOUT CONTRAST REASON FOR EXAM: Female, 27 years old. Right flank pain. RADIATION DOSAGE (If Supplied By Facility): CTDIvol = ( 9.86 ) mGy, DLP = ( 524.95 ) mGycm TECHNIQUE: Transaxial images were obtained from the dome of the diaphragm to the symphysis pubis without oral contrast, and without intravenous contrast. Sagittal and coronal images were reconstructed. Individualized dose optimization techniques were used for this CT. COMPARISON: Comparison is made with prior study dated February 26, 2018. FINDINGS: The visualized lung bases are unremarkable. The visualized portions of the heart are within normal limits. Normal liver. Normal gallbladder and extrahepatic biliary system. Normal spleen. Normal pancreas. Normal bilateral adrenal glands. Mild degree of right hydronephrosis and hydroureter due to a 5 mm calculus at the right ureterovesical junction. This calculus was previously seen in the proximal right ureter. Normal left kidney. There is a small hiatal hernia. Normal small intestine. Normal colon. The appendix is visualized and appears normal. Normal abdominal aorta. Normal inferior vena cava. Normal retroperitoneum. Normal urinary bladder. Normal abdominal wall. Normal osseous structures. CT/Abdomen/Pelvis without Cont IMPRESSION: 5 mm calculus at the right ureterovesical junction with right hydronephrosis and hydroureter. Electronically Signed: Ambrosio Issa MD at 9:39 EST Tel [phone], Service support ,
--- NOTE | 2018-03-12 08:12 | ED.VISSUMM ---
- ER Visit Summary Date of Service: 03/12/18 Chief Complaint: Right flank pain History of Present Illness: The patient is a 27 F who presents with right low back and flank pain that began this morning. Patient states the pain is similar to prior kidney stone. Patient states the pain is constant. Patient describes the pain as dull and aching. Patient states the pain is over the right lower back and flank area. Patient states nothing makes it better or worse. Patient admits to some nausea and vomiting. Patient denies any dysuria or hematuria. Patient denies any fevers or chills. Physical Examination: Vital signs are stable except for mildly elevated blood pressure 145/100 mild tachycardia of 106. Patient is afebrile. Patient is in no acute distress. Oral mucosa is pink and moist. Neck is supple. Trachea is midline. There is no JVD noted. Heart was regular rate and rhythm. Lungs are clear and equal bilateral. Abdomen is soft. Bowel sounds are normal. There is no tenderness. There is some mild right lower lumbar tenderness. There is no midline tenderness. Cranial nerves II through XII are intact. There are no focal motor or sensory deficits noted. The remaining physical exam is within normal limits. Test Results: CBC and basic metabolic profile were within normal limits. Serum hCG was negative. Urinalysis does not show any evidence of urinary tract infection. There are 25-[address] scan of the abdomen and pelvis shows a 5 mm distal ureteral calculus with hydronephrosis and hydroureter. Emergency Department Course and Treatment: Patient was given IV fluids. Patient was given Toradol and Zofran. Patient had minimal relief with this. Patient was given a dose of morphine. Patient was resting comfortably on reexamination. Patient was given a prescription for Barnum to take at home as needed for pain. Patient was instructed to follow-up with her urologist in 3-5 days. Patient understood and was agreeable with the plan. All questions were answered. Disposition: Discharged home Impression: Right ureteral calculus This note was generated with [employer] dictation software. It may contain incorrect words, spelling, and punctuation that were not noted in review of the chart prior to signing ED Disposition - Plan for ED Patient: Disposition: Home or Assisted Living Chief Complaint: Flank Pain Diagnosis: Right distal ureteral calculus Instructions: ED Stone Renal W Colic Prescriptions: Hydrocodone Bitart/Apap 5-325 [Barnum 5MG-325MG] 1 tab PO Q6H PRN PRN 3 Days #10 tab PRN Reason: Pain Referrals: Shahab Rodriguez MD [Primary Care Provider] -
[2018-03-12] MEDS: Ketorolac 30 MG/ML Syringe IV (08:15)
[2018-03-12] MEDS: 0.9% Normal Saline 1,000 ML 250 ML IV (08:15)
[2018-03-12] MEDS: Ondansetron 4 MG/2 ML Vial IV (08:15)
[2018-03-12 08:29] LABS: Absolute Lymphocyte Count 3.04 X10^3/ul (0.83-4.51); Absolute Neutrophil Count 4.1 X10^3/uL (2.0-7.7); Basophil# 0.03 X10^3/uL; Basophil% 0.4 % (0-1); Eosinophil# 0.21 X10^3/uL; Eosinophils% 2.7 % (0-5); Hematocrit 44.3 % (37-47); Hemoglobin 14.9 g/dl (12.0-15.0); Lymphocyte # 3.04 X10^3/ul (4.0); Lymphocyte % 38.6 % (19-41); Mean Corp Hgb Conc 33.6 g/gl (32-36); Mean Corpuscular Hgb 29.8 pg (27.0-32.0); Mean Corpuscular Volume 88.6 fL (81-99); Mean Platelet Vol. 10.1 fl (6.2-12.0); Monocyte# 0.53 X10^3/uL; Monocyte% 6.7 % (0-10); Neutrophil # 4.06 X10^3/uL (2.7-7.7); Neutrophil % 51.5 % (47-70); Platelet Count 251 K/mm3 (150-450); RBC Distribution Width SD 38.3 fl (35.1-43.9); White Blood Count 7.9 K/mm3 (4.4-11.0)
[2018-03-12 08:30] LABS: POSITIVE COUNT NO; POSITIVE DIFFERENTIAL NO; POSITIVE MORPHOLOGY NO
[2018-03-12 08:40] LABS: Anion Gap 7 (5-15); BUN 16 mg/dL (7-18); BUN/Creat Ratio 20.5 RATIO (10-20); Calcium,Total 8.8 mg/dL (8.5-10.1); Chloride 106 mmol/L (98-107); Creatinine, Serum 0.78 mg/dL (0.55-1.02); EST Glomerular Filtration Rate 93 mL/min (>60); Est Glom Filt Rate - Afr Amer 113 mL/min (>60); Estimated Creatinine Clearance 96.62 ml/min; Glucose 85 mg/dL (74-106); Potassium 3.7 mmol/L (3.5-5.1); Sodium Level 140 mmol/L (136-145)
[2018-03-12 08:59] LABS: Pregnancy, Serum, hCG Quali. NEGATIVE Negative (0-9 Nonpreg)
[2018-03-12 09:03] LABS: Mucous, Urine 0 SEEN /hpf (<or=2+)
[2018-03-12] MEDS: Morphine 4 MG/ML Syringe IV (09:09)
[2018-03-12 09:10] LABS: Color, Urine Yellow (Yellow); Glucose, Dipstick Normal (Normal); Ketone-Dipstick Negative (Negative); Leukocyte Esterase-Dipstick 25 /ul (Negative); Nitrite-Dipstick Negative (Negative); Occult Blood-Urine 250 /ul (Negative); Protein-Dipstick 30 mg/dl (Negative); Specific Gravity, Urine 1.015 (1.002-1.030); Urine Bilirubin Dipstick Negative (Negative); Urine Clarity Sl. Cloudy (Clear); Urine Urobilinogen Normal (Normal)
[2018-03-12 09:17] LABS: Bacteria 1+ /hpf (None Seen); Red Blood Cells-Urine 25-50 SEEN /hpf (0-5); Squamous Epithelial Cells - UA 0-5 SEEN /hpf (5-10); White Blood Cells 0-5 SEEN /hpf (0-5)
[2018-03-12 10:00] VITALS: BP 128/87; PULSE 66; RESP 16; O2SAT 100
== END 2018-03-12 10:02 | disposition home or self-care (01) ==
PROVIDERS: Emergency Provider Emergency Medicine; Family Provider Family Medicine; PCP Family Medicine
DX: N13.2 Hydronephrosis with renal and ureteral calculous obstruction (principal); Z87.442 Personal history of urinary calculi; Z72.0 Tobacco use
CPT/HCPCS: 74176; 80048; 81001; 84703; 85025; 96361; 96374; 96375; 99284; J7030; A4216; J2405

== ENCOUNTER 2018-08-18 23:27 | Emergency (ER) | payer BC, SELFPAY ==
[2018-08-18 23:27] VITALS: BP 166/101; PULSE 87; RESP 18; TEMP 36.6; O2SAT 100; BMI 30.7
[2018-08-18] MEDS: 0.9% Normal Saline 1,000 ML 999 ML IV (23:51)
[2018-08-18] MEDS: Ketorolac 30 MG/ML Syringe IV (23:51)
[2018-08-18 23:52] LABS: Color, Urine Yellow (Yellow); Glucose, Dipstick Normal (Normal); Ketone-Dipstick Negative (Negative); Leukocyte Esterase-Dipstick 25 /ul (Negative); Nitrite-Dipstick Negative (Negative); Occult Blood-Urine 250 /ul (Negative); Protein-Dipstick 15 mg/dl (Negative); Urine Bilirubin Dipstick Negative (Negative); Urine Clarity Sl. Cloudy (Clear); Urine Urobilinogen Normal (Normal)
[2018-08-18 23:53] LABS: Absolute Lymphocyte Count 3.58 X10^3/ul (0.83-4.51); Absolute Neutrophil Count 4.4 X10^3/uL (2.0-7.7); Basophil# 0.03 X10^3/uL; Basophil% 0.3 % (0-1); Eosinophils% 2.3 % (0-5); Hematocrit 42.5 % (37-47); Hemoglobin 14.6 g/dl (12.0-15.0); Lymphocyte # 3.58 X10^3/ul (4.0); Mean Corp Hgb Conc 34.4 g/gl (32-36); Mean Corpuscular Hgb 29.7 pg (27.0-32.0); Mean Corpuscular Volume 86.4 fL (81-99); Mean Platelet Vol. 10.5 fl (6.2-12.0); Monocyte# 0.52 X10^3/uL; Monocyte% 5.9 % (0-10); Neutrophil # 4.39 X10^3/uL (2.7-7.7); Neutrophil % 50.3 % (47-70); Platelet Count 252 K/mm3 (150-450); RBC Distribution Width CV 11.7 % (11.6-14.6); RBC Distribution Width SD 36.7 fl (35.1-43.9); Red Blood Count 4.92 M/mm3 (4.2-5.4); White Blood Count 8.7 K/mm3 (4.4-11.0)
[2018-08-18 23:54] LABS: POSITIVE COUNT NO; POSITIVE DIFFERENTIAL NO; POSITIVE MORPHOLOGY NO
[2018-08-18 23:57] LABS: Internal QC Validated? YES +Cl - CLEAR BKGD; Pregnancy, Urine Negative Negative
[2018-08-18 23:58] LABS: Bacteria 1+ /hpf (None Seen); Mucous, Urine 1+ /hpf (<or=2+); Red Blood Cells-Urine 5-10 SEEN /hpf (0-5); Squamous Epithelial Cells - UA 0-5 SEEN /hpf (5-10); White Blood Cells 0-5 SEEN /hpf (0-5)
[2018-08-19 00:02] LABS: Anion Gap 7 (5-15); BUN 20 mg/dL (7-18); BUN/Creat Ratio 22.1 RATIO (10-20); Calcium,Total 9.1 mg/dL (8.5-10.1); Chloride 105 mmol/L (98-107); EST Glomerular Filtration Rate 78 mL/min (>60); Est Glom Filt Rate - Afr Amer 95 mL/min (>60); Estimated Creatinine Clearance 83.74 ml/min; Glucose 92 mg/dL (74-106); Potassium 3.5 mmol/L (3.5-5.1); Sodium Level 139 mmol/L (136-145)
--- NOTE | 2018-08-19 00:43 | ED.VISSUMM ---
- ER Visit Summary Date of Service: 08/19/18 Chief Complaint: Flank pain History of Present Illness: The patient is a 27 F who presents with mild right flank pain. This is sharp. She also noted some blood in her urine. She denies nausea vomiting diarrhea. No fevers. Physical Examination: Blood pressure 166/101 vitals otherwise unremarkable. Moist mucous membranes Heart regular rate and rhythm Lungs clear Abdomen soft No flank tenderness Alert Test Results: CBC BMP unremarkable. negative. Urinalysis shows 5-10 RBCs, [address] the flank shows no obstructive uropathy, no ureteral calculi. Emergency Department Course and Treatment: Patient was given IV Toradol. Her work-up is essentially unremarkable. She does have nephrolithiasis but no evidence of obstructive uropathy or ureteral calculi. She does have microscopic hematuria. Its possible that she recently passed a stone. She was advised to follow-up as an outpatient. She was discharged. Treatment Plan: [] Disposition: Discharge Impression: Flank pain This note was generated with [employer] dictation software. It may contain incorrect words, spelling, and punctuation that were not noted in review of the chart prior to signing ED Disposition - Plan for ED Patient: Referrals: Shahab Rodriguez MD [Primary Care Provider] -
--- NOTE | 2018-08-19 00:46 | ED.DEP ---
ED Disposition - Plan for ED Patient: Instructions: ED Flank Pain Uncertain Cause Referrals: Shahab Rodriguez MD [Primary Care Provider] -
[2018-08-19 00:53] VITALS: BP 129/70; PULSE 70; RESP 18; O2SAT 97
--- NOTE | 2018-08-19 23:43 | CT_ITS ---
STUDY: CT ABDOMEN AND PELVIS WITHOUT CONTRAST REASON FOR EXAM: Female, 27 years old. Right flank pain with hematuria, history of kidney stones with stent placement in past. RADIATION DOSAGE (If Supplied By Facility): CTDIvol = ( 10.42 ) mGy, DLP = ( 505.24 ) mGycm TECHNIQUE: Transaxial 2.5 mm images were obtained from the dome of the diaphragm to the symphysis pubis without oral contrast, and without intravenous contrast. Sagittal and coronal images were reconstructed. This examination is limited for the evaluation of gastrointestinal, solid organs and vascular structures due to the lack of intravenous and oral contrast. Individualized dose optimization techniques were used for this CT. COMPARISON: CT abdomen pelvis 03/12/2018. 02/25/2018. FINDINGS: The visualized lung bases are unremarkable. The visualized portions of the heart are within normal limits. Normal liver. Normal gallbladder and extrahepatic biliary system. Normal spleen. Normal pancreas. Normal bilateral adrenal glands. 2.5 mm nonobstructing right inferior renal pole calyx barely visualized on previous examination. Previously seen right UVJ calculus has resolved. Normal left kidney. Normal visualized stomach. Normal small intestine. There are multiple colonic diverticula consistent with diverticulosis. The appendix is visualized and appears normal. Normal abdominal aorta. Normal inferior vena cava. Normal retroperitoneum. Normal urinary bladder. Normal abdominal wall. Obesity. Normal osseous structures. CT/Abdomen/Pelvis without Cont IMPRESSION: There is no obstructive uropathy, obstructive renal or ureteral calculi. Small 2.5 mm nonobstructing right inferior renal pole calculus, barely perceived on previous examination. Resolution of previously seen right UVJ calculus with obstruction. Rare colonic diverticula. Electronically Signed: Magaly Stratton MD at 0:40 EDT , Service support ,
== END 2018-08-19 00:54 | disposition home or self-care (01) ==
LOC: ED 23:55
PROVIDERS: Emergency Provider Emergency Medicine; Family Provider Family Medicine; PCP Family Medicine
DX: R10.9 Unspecified abdominal pain (principal); Z87.442 Personal history of urinary calculi; Z72.0 Tobacco use
CPT/HCPCS: 74176; 80048; 81001; 81025; 85025; 96361; 96374; 99283; J7030; A4216

== ENCOUNTER 2019-02-16 17:00 | Emergency (ER) | payer BC, SELFPAY ==
[2019-02-16 17:02] VITALS: BP 148/92; PULSE 88; RESP 12; TEMP 36.7; O2SAT 98; BMI 32.8
--- NOTE | 2019-02-16 17:54 | ED.DCSUM_ITS ---
- ER Visit Summary Date of Service: 02/16/19 Chief Complaint: Back pain History of Present Illness: The patient is a [address] Rodriguez. She reports that she has low back pain that began today. States it was present when she woke this morning. The sharp pain is 10 of 10 with movement 8 out of 10 at rest. She is taking Tylenol and ice with minimal relief. States that it radiates into her right buttock. She denies any numbness or weakness. No problems with her bowels or bladder. No groin numbness. Patient denies any recent trauma. No fall, MVA, or change in activity. No history of IV drug abuse. No fever or other red flags. Physical Examination: Vitals: Stable. Afebrile. General: A&O x 3. NAD. Cardiovascular exam: Regular rate and rhythm, no murmur, rub or gallop. Respiratory exam: Clear to auscultation bilaterally. No wheezes or stridor. Abdominal exam: Soft, nontender, nondistended, normal bowel sounds. No peritoneal signs. Back: Diffuse moderate tenderness to palpation over the lumbar spine and the paraspinous musculature in the lumbar region. No point tenderness. Negative straight leg bilaterally. 5/5 DF, PF, EHL bilaterally. Normal sensation to light touch throughout. Extremity: No clubbing, cyanosis, or edema. Emergency Department Course and Treatment: Patient was treated with a dose of Toradol IM and Flexeril p.o. She is resting comfortably. Treatment Plan: Patient will be discharged with naproxen and Flexeril. Instructed to follow-up with her primary care physician 1 week if not improving. Return to the emergency department for any worsening symptoms. Disposition: To home in improved and stable condition. Impression: 1. Low back pain. This note was generated with [employer] dictation software. It may contain incorrect words, spelling, and punctuation that were not noted in review of the chart prior to signing ED Disposition - Plan for ED Patient: Disposition: Home or Assisted Living Instructions: BACK PAIN (Acute or Chronic) Prescriptions: cycloBENZAPRine HCl [Flexeril] 10 mg PO TID PRN #20 tab PRN Reason: Muscle Spasm Prescription Printed Naproxen [Naprosyn] 500 mg PO BID #14 tab Prescription Printed Referrals: Shahab Rodriguez MD [Primary Care Provider] - 1 Week if not improving
[2019-02-16] MEDS: cycloBENZAPRine HCl 10 MG Tablet PO (18:18)
[2019-02-16] MEDS: Ketorolac 60 MG/2 ML Vial IM (18:19)
== END 2019-02-16 18:55 | disposition home or self-care (01) ==
LOC: ED 18:06
PROVIDERS: Emergency Provider Emergency Medicine; Family Provider Family Medicine; PCP Family Medicine
DX: M54.5 Low back pain (principal); Z87.442 Personal history of urinary calculi; Z72.0 Tobacco use
CPT/HCPCS: 96372; 99282

== ENCOUNTER 2019-03-15 08:34 | Emergency (ER) | payer BC, SELFPAY ==
[2019-03-15 08:35] VITALS: BP 157/104; PULSE 89; RESP 16; TEMP 36.8; O2SAT 100; BMI 30.7
[2019-03-15 09:07] LABS: Bacteria 0 SEEN /hpf (None Seen); Mucous, Urine 0 SEEN /hpf (<or=2+); Red Blood Cells-Urine 0 SEEN /hpf (0-5)
[2019-03-15] MEDS: Ondansetron 4 MG/2 ML Vial IV (09:12)
[2019-03-15] MEDS: Ketorolac 30 MG/ML Syringe IV (09:12)
[2019-03-15 09:14] LABS: Internal QC Validated? YES +Cl - CLEAR BKGD; Pregnancy, Urine Negative Negative
[2019-03-15 09:15] LABS: Color, Urine Yellow (Yellow); Glucose, Dipstick NEGATIVE (Normal); Urine Clarity Sl. Cloudy (Clear)
[2019-03-15 09:16] LABS: Ketone-Dipstick 5 mg/dl (Negative); Leukocyte Esterase-Dipstick 25 /ul (Negative); Nitrite-Dipstick Negative (Negative); Occult Blood-Urine Negative /ul (Negative); Protein-Dipstick 15 mg/dl (Negative); Specific Gravity, Urine 1.025 (1.002-1.030); Urine Bilirubin Dipstick Negative (Negative); Urine Urobilinogen 1 mg/dl (Normal)
[2019-03-15 09:20] LABS: Squamous Epithelial Cells - UA 0-5 SEEN /hpf (5-10); White Blood Cells 0-5 SEEN /hpf (0-5)
--- NOTE | 2019-03-15 09:26 | ED.DCSUM_ITS ---
- ER Visit Summary Date of Service: 03/15/19 Chief Complaint: Right lower back pain History of Present Illness: The patient is a 28 F who has right lower back pain. She states it started yesterday and got worse this morning. It starts in the right lower back and radiates straight down into her hip. It does not wrap around to her groin. Nothing makes the pain better or worse. She denies hematuria. She does have a history of kidney stones. Her last episode was last year. She took Tylenol yesterday which did not help with her pain. She does have some nausea but denies any vomiting. She denies any falls or trauma. Physical Examination: Vital signs reviewed. HEENT exam unremarkable. Heart is regular rate and rhythm without murmurs. Lungs are clear to auscultation. Abdomen is soft and nontender. Extremities reveal no edema. Skin exam normal. Neurologic exam normal. Test Results: Analysis has trace leukocytes with no red blood cells or white blood cells Emergency Department Course and Treatment: The patient was given Toradol and Zofran. Upon reevaluation her pain is much improved. She has no red or white blood cells in her urine. It does not appear to be pyelonephritis or kidney stones. This is likely muscular since it does radiate down into the hip. I will treat her with naproxen and Phenergan for home. She will need to call her doctor for follow-up. Treatment Plan: [] Disposition: Discharge Impression: Right lower back pain This note was generated with [employer] dictation software. It may contain incorrect words, spelling, and punctuation that were not noted in review of the chart prior to signing ED Disposition - Plan for ED Patient: Referrals: Shahab Rodriguez MD [Primary Care Provider] -
--- NOTE | 2019-03-15 09:28 | ED.DEP ---
ED Disposition - Plan for ED Patient: Disposition: Home or Assisted Living Instructions: BACK PAIN (Acute or Chronic) Prescriptions: Naproxen [Naprosyn] 500 mg PO BID PRN #20 tab Prescription Printed proMETHazine tablet [Phenergan] 25 mg PO Q6H PRN PRN #10 tab PRN Reason: Nausea Prescription Printed Referrals: Shahab Rodriguez MD [Primary Care Provider] -
[2019-03-15 09:36] VITALS: BP 124/78; PULSE 84; RESP 18; O2SAT 99
== END 2019-03-15 09:38 | disposition home or self-care (01) ==
PROVIDERS: Emergency Provider Emergency Medicine; Family Provider Family Medicine; PCP Family Medicine
DX: M54.5 Low back pain (principal); Z87.442 Personal history of urinary calculi; Z72.0 Tobacco use
CPT/HCPCS: 36415; 81001; 81025; 96374; 96375; 99283; A4216; J2405

== ENCOUNTER 2019-05-12 00:03 | Emergency (ER) | payer BC, SELFPAY ==
[2019-05-12 00:04] VITALS: BP 138/100; PULSE 82; RESP 18; TEMP 36.7; O2SAT 98; BMI 30.7
--- NOTE | 2019-05-12 00:17 | CT_ITS ---
STUDY: CT ABDOMEN AND PELVIS WITHOUT CONTRAST REASON FOR EXAM: Female, 28 years old. Flank pain and hematuria TECHNIQUE: Transaxial images were obtained from the dome of the diaphragm to the symphysis pubis without oral contrast, and without intravenous contrast. Sagittal and coronal images were reconstructed. Individualized dose optimization techniques were used for this CT. COMPARISON: None. FINDINGS: The visualized lung bases are unremarkable. The visualized portions of the heart are within normal limits. Normal liver. Normal gallbladder and extrahepatic biliary system. Normal spleen. Normal pancreas. Normal bilateral adrenal glands. Normal right kidney. Normal left kidney. Normal visualized stomach. Normal small intestine. Diverticular disease of the proximal sigmoid colon without localized inflammation. The appendix is visualized and appears normal. Normal abdominal aorta. Normal inferior vena cava. Normal retroperitoneum. Normal urinary bladder. Normal reproductive structures. Normal abdominal wall. Normal osseous structures. CT/Abdomen/Pelvis without Cont IMPRESSION: 1. No acute intra-abdominal abnormality. 2. Minimal proximal sigmoid colonic diverticulosis with no evidence of acute diverticulitis. Electronically Signed: Dixon Mims MD at 1:30 EST Tel , Service support ,
--- NOTE | 2019-05-12 00:19 | ED.DCSUM_ITS ---
History of Present Illness Chief Complaint: Flank Pain Detail of Chief Complaint: Left flank pain Informant: Patient Onset: Today Context: Gradual Onset Timing: Waxes and wanes Current Severity: Moderate Maximum Severity: Moderate Narrative: Patient presents with severe left flank pain and hematuria. She reports a history of kidney stones. She has required surgery for some of her kidney stones. She denies dysuria or frequency. She denies possibility of . Last menstrual cycle was April 24. She typically follows with Dr. Rendon, urology with [facility]. - Past Medical History (1) Kidney stones Status: Chronic Past Medical History - Allergies and Home Meds Allergies/Adverse Reactions: Allergies No Known Allergies Allergy (Verified 02/16/19 17:02) Primary Care Physician: Shahab Rodriguez MD [Primary Care Provider] - Doctors: Dr. Rendon, urology at [facility] Prior records reviewed: Yes Smoking Status: Current every day smoker Review of Systems General: Denies: Chills, Fever Eyes: Denies: Visual changes - bilaterally ENT: Denies: Bilateral ear pain Cardiovascular: Denies: Chest pain Respiratory: Denies: Dyspnea, Cough Gastrointestinal: Reports: Abdominal pain - Left flank pain. Denies: Vomiting, Diarrhea Genitourinary: Reports: Hematuria. Denies: Dysuria Musculoskeletal: Reports: Back pain - Left flank pain Skin: Denies: Rash Neurological: Denies: Headache Hematologic: Denies: Easy bruising Allergy: Denies: Uticaria Physical Exam Vital Signs/Narrative: Vital Signs Temp Pulse Resp BP Pulse Ox 05/12/19 00:04 98.1 F 82 18 138/100 H 98 Inital Vital Signs reviewed: Yes General: Well nourished, Well developed Head: Normocephalic ENT: Moist mucous membranes Neck: Supple Cardiovascular: Regular rate, Regular rhythm Respiratory: No distress, CTA bilaterally Abdomen: Soft, Nontender, Hypoactive bowel sounds Back: Negative for: CVA tenderness Extremities: Nontender Skin: Normal color, No rash Neurological: Alert, Oriented x3 Psychological: Normal affect Diagnostic/Tx/Re-eval 05/12/19 00:17 Abdomen/Pelvis without Cont [CT] Stat Laboratory Results 05/12/19 05/12/19 05/12/19 00:20 00:20 00:20 WBC 10.2 RBC 4.38 Hgb 13.2 Hct 38.8 MCV 88.6 MCH 30.1 MCHC 34.0 RDW Std Deviation 37.7 RDW Coeff of Maciel 11.8 Plt Count 246 MPV 10.3 Immature Gran % (Auto) 0.300 Neut % (Auto) 57.5 Lymph % (Auto) 34.4 [place] % (Auto) 5.7 Eos % (Auto) 1.5 Baso % (Auto) 0.6 Absolute Neuts (auto) 5.9 Absolute Lymphs (auto) 3.50 Nucleated RBC % 0 Sodium 137 Potassium 4.7 Chloride 109 H Carbon Dioxide 23.0 Anion Gap 5 BUN 21 H Creatinine 0.72 Estim Creat Clear Calc 103.74 Est GFR (MDRD) Af Amer 122 Est GFR (MDRD) Non-Af 101 BUN/Creatinine Ratio 29.0 H Glucose 84 Calcium 8.8 Serum , Qual NEGATIVE - Medical Decision Making Patient is given Toradol, morphine, Zofran, and IV fluids. CT scan is ordered and pending at this time. Blood work and urinalysis are unremarkable. This will be signed out to oncoming physician for final disposition. ED Disposition - Plan for ED Patient: Referrals: Shahab Rodriguez MD [Primary Care Provider] -
[2019-05-12 00:36] LABS: Absolute Neutrophil Count 5.9 X10^3/uL (2.0-7.7); Basophil# 0.06 X10^3/uL; Basophil% 0.6 % (0-1); Eosinophil# 0.15 X10^3/uL; Eosinophils% 1.5 % (0-5); Hematocrit 38.8 % (37-47); Hemoglobin 13.2 g/dL (12.0-15.0); Lymphocyte % 34.4 % (19-41); Mean Corpuscular Hgb 30.1 pg (27.0-32.0); Mean Corpuscular Volume 88.6 fL (81-99); Mean Platelet Vol. 10.3 fl (6.2-12.0); Monocyte# 0.58 X10^3/uL; Monocyte% 5.7 % (0-10); NRBC Flagged by Analyzer 0 % (0-5); Neutrophil # 5.85 X10^3/uL (2.7-7.7); Neutrophil % 57.5 % (47-70); Platelet Count 246 K/mm3 (150-450); RBC Distribution Width CV 11.8 % (11.6-14.6); RBC Distribution Width SD 37.7 fl (35.1-43.9); Red Blood Count 4.38 M/mm3 (4.2-5.4); White Blood Count 10.2 K/mm3 (4.4-11.0)
[2019-05-12] MEDS: 0.9% Normal Saline 1,000 ML 1000 ML IV (00:41)
[2019-05-12 00:42] LABS: Internal QC Validated? YES +Cl - CLEAR BKGD; Pregnancy, Serum, hCG Quali. NEGATIVE Negative
[2019-05-12] MEDS: Ondansetron 4 MG/2 ML Vial IV (00:42)
[2019-05-12] MEDS: Morphine 4 MG/ML Syringe IV (00:42)
[2019-05-12] MEDS: Ketorolac 30 MG/ML Syringe IV (00:42)
[2019-05-12 00:48] LABS: Anion Gap 5 (5-15); BUN 21 mg/dL (7-18); Calcium,Total 8.8 mg/dL (8.5-10.1); Chloride 109 mmol/L (98-107); Creatinine, Serum 0.72 mg/dL (0.55-1.02); EST Glomerular Filtration Rate 101 mL/min (>60); Est Glom Filt Rate - Afr Amer 122 mL/min (>60); Estimated Creatinine Clearance 103.74 ml/min; Glucose 84 mg/dL (74-106); Potassium 4.7 mmol/L (3.5-5.1); Sodium Level 137 mmol/L (136-145)
[2019-05-12 00:55] LABS: Color, Urine Yellow (Yellow); Glucose, Dipstick Normal (Normal); Ketone-Dipstick 5 mg/dl (Negative); Leukocyte Esterase-Dipstick Negative /ul (Negative); Mucous, Urine 0 SEEN /hpf (<or=2+); Nitrite-Dipstick Negative (Negative); Occult Blood-Urine Negative /ul (Negative); Protein-Dipstick Negative (Negative); Specific Gravity, Urine 1.025 (1.002-1.030); Urine Bilirubin Dipstick Negative (Negative); Urine Clarity Clear (Clear); Urine Urobilinogen 1 mg/dl (Normal)
[2019-05-12 01:01] LABS: Bacteria 1+ /hpf (None Seen); Red Blood Cells-Urine 5-10 SEEN /hpf (0-5); Squamous Epithelial Cells - UA 5-10 SEEN /hpf (5-10); Transitional Epithelial - Ur 0-5 SEEN /hpf (0-5); White Blood Cells 5-10 SEEN /hpf (0-5)
--- NOTE | 2019-05-12 01:38 | ED.DEP ---
ED Disposition - Plan for ED Patient: Instructions: KIDNEY STONE, Passed Referrals: Shahab Rodriguez MD [Primary Care Provider] -
[2019-05-12 01:46] VITALS: BP 135/86; PULSE 76; RESP 15; O2SAT 97
== END 2019-05-12 01:47 | disposition home or self-care (01) ==
LOC: ED 00:29
PROVIDERS: Emergency Provider Emergency Medicine; PCP Family Medicine
DX: K57.30 Diverticulosis of large intestine without perforation or abscess without bleeding (principal); Z87.442 Personal history of urinary calculi; F17.200 Nicotine dependence, unspecified, uncomplicated
CPT/HCPCS: 74176; 80048; 81001; 84703; 85025; 96361; 96374; 96375; 99282; J7030; A4216; J2405

== ENCOUNTER 2020-07-18 22:49 | Emergency (ER) | payer BC, SELFPAY ==
[2020-07-18 22:50] VITALS: BP 168/115; PULSE 82; RESP 15; TEMP 36.7; O2SAT 97; BMI 33.3
--- NOTE | 2020-07-18 23:12 | CT_ITS ---
STUDY: CT ABDOMEN AND PELVIS WITHOUT CONTRAST REASON FOR EXAM: Female, 29 years old. Kidney Stone RADIATION DOSAGE (If Supplied By Facility): CTDIvol = ( 19.82 ) mGy, DLP = ( 950.58 ) mGycm TECHNIQUE: Transaxial images were obtained from the dome of the diaphragm to the symphysis pubis without oral contrast, and without intravenous contrast. Sagittal and coronal images were reconstructed. Individualized dose optimization techniques were used for this CT. COMPARISON: None. FINDINGS: The visualized lung bases are unremarkable. The visualized portions of the heart are within normal limits. Normal liver. Normal gallbladder and extrahepatic biliary system. Normal spleen. Normal pancreas. Normal bilateral adrenal glands. Normal right kidney. Normal left kidney. Normal visualized stomach. Normal small intestine. Normal colon. The appendix is visualized and appears normal. Significant fecal retention throughout the colon. Normal abdominal aorta. Normal inferior vena cava. Normal retroperitoneum. Normal urinary bladder. Unremarkable uterus Normal abdominal wall. Normal osseous structures. CT/Abdomen/Pelvis without Cont IMPRESSION: Constipation. Unremarkable appendix. No evidence of urolithiasis Electronically Signed: Tra West DO at 0:12 EDT Tel , Service support ,
--- NOTE | 2020-07-18 23:14 | EX.ED.DYSGE1 ---
HPI History of Present Illness Chief Complaint: Flank Pain Narrative Narrative: Patient presents with right flank pain that started about 4 to 5 hours ago. It is sharp stabbing it is waxing and waning. At this time she is relatively comfortable. She also noticed blood in her urine. No current abdominal pain. No fever chills. No left-sided abdominal pain no chest pain or shortness of breath. She does have a history of kidney stones and this feels similar. She denies . PFSH PFS Home Medications sulfamethoxazole-trimethoprim [Bactrim DS] 1 tab PO BID #6 tab 07/19/20 [Rx Last Taken Unknown] Allergy/AdvReac Type Severity Reaction Status Date / Time No Known Allergies Allergy Verified 07/18/20 22:52 Social History Smoking Status: Former smoker ROS ROS ED ROS Narrative Past medical history: Reviewed, prior kidney stones. Medications: Reviewed Social history: Noncontributory Review of systems: All systems negative except as indicated General: No fever Eyes: No visual changes ENT: No upper airway congestion, normal voice Neck: No neck pain Cardiovascular: No chest pain Respiratory: No shortness of breath or cough Gastrointestinal: No abdominal pain, nausea vomiting or diarrhea. There is flank pain as in HPI Genitourinary: No dysuria. She has noticed hematuria. Musculoskeletal: Denies myalgias no difficulty with ambulation Skin: No rash Neurological: No memory loss, confusion or any focal weakness Psych: No recent behavioral changes Hematologic: No easy bleeding or easy bruising EXAM Physical Exam Narrative Exam Narrative: Physical exam General: Patient appears relatively comfortable in the bed. Head: Normocephalic, Atraumatic Eyes: Conjunctiva not pale ENT: Moist mucous membranes Neck: Supple, Nontender, No lymphadenopathy Cardiovascular: Regular rate, Regular rhythm Respiratory: No distress, CTA bilaterally Abdomen: Soft, there is slight right side abdominal pain and CVA tenderness no specific right lower abdominal pain no pain at McBurney's. No guarding or rebound. Back: Nontender, Normal Inspection. CVA tenderness as above, no midline pain. Extremities: Nontender, No edema Skin: Normal color, No rash Neurological: Alert, Normal Strength, Normal Sensation Psychological: Normal affect Const Vital Signs: 07/18/20 22:50 Temperature 98.1 F Temperature Source Temporal Pulse Rate 82 Respiratory Rate 15 Blood Pressure 168/115 H Blood Pressure Mean 132 Pulse Ox 97 Oxygen Delivery Method Room Air MDM MDM Lab Data Lab results narrative: Patient does have some blood on her urine as well as some leuk esterases. The CT does not show any kidney stone although she is quite comfortable now and only required Toradol, she may have had a small stone in the past. Regardless I will treat her with antibiotics otherwise I will discharge in stable condition. Labs: Laboratory Results - last 24 hr 07/18/20 07/18/20 07/18/20 23:08 23:08 23:18 WBC 7.3 RBC 4.86 Hgb 14.1 Hct 42.2 MCV 86.8 MCH 29.0 MCHC 33.4 RDW Std Deviation 37.0 RDW Coeff of Maciel 11.5 L Plt Count 270 MPV 9.9 Immature Gran % (Auto) 0.700 Neut % (Auto) 50.4 Lymph % (Auto) 38.7 [place] % (Auto) 6.9 Eos % (Auto) 2.6 Baso % (Auto) 0.7 Absolute Neuts (auto) 3.7 Absolute Lymphs (auto) 2.82 Nucleated RBC % 0 Sodium Potassium Chloride Carbon Dioxide Anion Gap BUN Creatinine Estim Creat Clear Calc Est GFR (MDRD) Af Amer Est GFR (MDRD) Non-Af BUN/Creatinine Ratio Glucose Calcium Urine Color Yellow Urine Clarity Clear Urine pH 6.0 Ur Specific [place] 1.020 Urine Protein Negative Urine Glucose (UA) Normal Urine Ketones Negative Urine Occult Blood 250 H Urine Nitrite Negative Urine Bilirubin Negative Urine Urobilinogen Normal Ur Leukocyte Esterase 100 H Urine RBC 5-10 SEEN Urine WBC 0-5 SEEN Ur Squamous Epith Cells 0-5 SEEN Urine Bacteria RARE Urine Mucus 0 SEEN Urine Test Negative 07/18/20 23:18 WBC RBC Hgb Hct MCV MCH MCHC RDW Std Deviation RDW Coeff of Maciel Plt Count MPV Immature Gran % (Auto) Neut % (Auto) Lymph % (Auto) [place] % (Auto) Eos % (Auto) Baso % (Auto) Absolute Neuts (auto) Absolute Lymphs (auto) Nucleated RBC % Sodium 137 Potassium 3.3 L Chloride 105 Carbon Dioxide 27.0 Anion Gap 5 BUN 16 Creatinine 0.84 Estim Creat Clear Calc 88.12 Est GFR (MDRD) Af Amer 102 Est GFR (MDRD) Non-Af 85 BUN/Creatinine Ratio 19.1 Glucose 75 Calcium 9.2 Urine Color Urine Clarity Urine pH Ur Specific [place] Urine Protein Urine Glucose (UA) Urine Ketones Urine Occult Blood Urine Nitrite Urine Bilirubin Urine Urobilinogen Ur Leukocyte Esterase Urine RBC Urine WBC Ur Squamous Epith Cells Urine Bacteria Urine Mucus Urine Test Radiography Diagnostic Testing: Radiology Impression Abdomen/Pelvis CT 07/18/20 23:12 IMPRESSION: Constipation. Unremarkable appendix. No evidence of urolithiasis Electronically Signed: Tra West DO at 0:12 EDT Tel , Service support , Discharge Plan Triage Chief Complaint: Flank Pain ED Provider: Juan Carlos Castañeda Dx/Rx/DC Orders Clinical Impression: Hematuria, Acute flank pain, UTI (urinary tract infection) Instructions: ED Kidney Stone, Passed, ED Bladder Infection, Female (Adult) Prescriptions: New sulfamethoxazole-trimethoprim [Bactrim DS] 800-160 mg tablet 1 tab PO BID Qty: 6 RF: 0 Primary Care Provider: Care Physician,No Primary Referrals: Deborah Jacobsen MD [STAFF PHYSICIAN] - 2 Days Care Physician,No Primary [Primary Care Provider] -
[2020-07-18 23:16] LABS: Mucous, Urine 0 SEEN /hpf (<or=2+)
[2020-07-18 23:19] LABS: Color, Urine Yellow (Yellow); Glucose, Dipstick Normal (Normal); Ketone-Dipstick Negative (Negative); Leukocyte Esterase-Dipstick 100 /ul (Negative); Nitrite-Dipstick Negative (Negative); Occult Blood-Urine 250 /ul (Negative); Protein-Dipstick Negative (Negative); Urine Bilirubin Dipstick Negative (Negative); Urine Clarity Clear (Clear); Urine Urobilinogen Normal (Normal)
[2020-07-18] MEDS: Ketorolac 15 MG/ML Vial IV (23:22)
[2020-07-18] MEDS: 0.9% Normal Saline 1,000 ML 999 ML IV (23:22)
[2020-07-18 23:24] LABS: Squamous Epithelial Cells - UA 0-5 SEEN /hpf (5-10)
[2020-07-18 23:25] LABS: Bacteria RARE /hpf (None Seen); Red Blood Cells-Urine 5-10 SEEN /hpf (0-5); White Blood Cells 0-5 SEEN /hpf (0-5)
[2020-07-18 23:33] LABS: Internal QC Validated? YES +Cl - CLEAR BKGD; Pregnancy, Urine Negative Negative
[2020-07-18 23:44] LABS: Absolute Lymphocyte Count 2.82 X10^3/uL (0.83-4.51); Absolute Neutrophil Count 3.7 X10^3/uL (2.0-7.7); Basophil# 0.05 X10^3/uL; Basophil% 0.7 % (0-1); Eosinophil# 0.19 X10^3/uL; Eosinophils% 2.6 % (0-5); Hematocrit 42.2 % (37-47); Hemoglobin 14.1 g/dL (12.0-15.0); Lymphocyte # 2.82 X10^3/ul (0.83-4.51); Lymphocyte % 38.7 % (19-41); Mean Corp Hgb Conc 33.4 g/dL (32-36); Mean Corpuscular Volume 86.8 fL (81-99); Mean Platelet Vol. 9.9 fl (6.2-12.0); Monocyte% 6.9 % (0-10); NRBC Flagged by Analyzer 0 % (0-5); Neutrophil # 3.68 X10^3/uL (2.7-7.7); Neutrophil % 50.4 % (47-70); Platelet Count 270 K/mm3 (150-450); RBC Distribution Width CV 11.5 % (11.6-14.6); Red Blood Count 4.86 M/mm3 (4.2-5.4); White Blood Count 7.3 K/mm3 (4.4-11.0)
[2020-07-18 23:46] LABS: Anion Gap 5 (5-15); BUN 16 mg/dL (7-18); BUN/Creat Ratio 19.1 RATIO (10-20); Calcium,Total 9.2 mg/dL (8.5-10.1); Chloride 105 mmol/L (98-107); Creatinine, Serum 0.84 mg/dL (0.55-1.02); EST Glomerular Filtration Rate 85 mL/min (>60); Est Glom Filt Rate - Afr Amer 102 mL/min (>60); Estimated Creatinine Clearance 88.12 ml/min; Glucose 75 mg/dL (74-106); Potassium 3.3 mmol/L (3.5-5.1); Sodium Level 137 mmol/L (136-145)
[2020-07-19] MEDS: Smz/Tmp Ds Tablet 1 TABLET PO (01:29)
== END 2020-07-19 01:31 | disposition home or self-care (01) ==
LOC: ED 23:17
PROVIDERS: Emergency Provider Emergency Medicine
DX: N39.0 Urinary tract infection, site not specified (principal); R31.9 Hematuria, unspecified; R10.9 Unspecified abdominal pain; Z87.891 Personal history of nicotine dependence
CPT/HCPCS: 74176; 80048; 81001; 81025; 85025; 96361; 96374; 99283; J7030; A4216

== ENCOUNTER 2021-03-04 21:43 | Emergency (ER) | payer BC, SELFPAY ==
[2021-03-04 21:44] VITALS: BP 172/113; PULSE 98; RESP 22; TEMP 36.3; BMI 38.0
[2021-03-04 22:25] VITALS: BP 173/113; PULSE 92; RESP 18; O2SAT 97
[2021-03-04 22:29] VITALS: O2SAT 98
--- NOTE | 2021-03-04 22:34 | ED.VIS.DYS ---
HPI History of Present Illness Chief Complaint: Shortness of Breath Informant: patient Onset/Context/Timing Onset: Yesterday Context: sudden Timing: Intermittent and Lasts (30 to 45 minutes) Quality: Positive for Dyspnea on exertion and - (Cannot catch my breath) Worsened by: Exertion Relieved by: Nothing Associated Symptoms cough, fever, subjective and clear sputum; Negative for rhinorrhea, ear pain, sore throat or chills Chest Pain: Positive for Intermittent and Pressure Narrative Narrative: Patient presents with shortness of breath that has been intermittent since yesterday. Patient states it begins rather suddenly. Patient states he feels like she cannot catch her breath. Patient states her episodes last approximately 30 to 45 minutes. Patient states she had one episode last night and one episode tonight. Patient states it is worse with some exertion. Patient states nothing seems to help with it. Patient admits to a cough with some clear sputum. Patient admits to subjective fever but did not take her temperature. Patient states she gets some pressure in her chest whenever she gets the shortness of breath. PE Risk Factors: Negative for Cancer, OCP + Smoking + > 35, Prior DVT or PE, Recent immobilization, Recent surgery and Recent travel [facility] Medical History (Updated 03/04/21 @ 23:[address] Jose Watters DO) Kidney stones Home Medications NK 03/04/21 [History Last Taken Unknown] Allergy/AdvReac Type Severity Reaction Status Date / Time No Known Allergies Allergy Verified 03/04/21 21:44 Surgical History (Updated 03/04/21 @ 22:[address] Jose Watters DO) History of removal of ureteral stent S/P ureteral stent placement Social History Smoking Status: Heavy Smoker (>10/day) ROS ROS ED Constitutional Constitutional ED: Denies chills or fever(s) Eyes Eyes: Denies blurry vision or change in vision ENT ENT ED: Denies rhinorrhea or sore throat Cardiovascular Cardiovascular: Reports chest pain; Denies palpitations Respiratory/Chest Respiratory/Chest: Reports cough, dyspnea and sputum Gastrointestinal Gastrointestinal: Denies nausea or vomiting Genitourinary Genitourinary ED: Reports urinary frequency; Denies dysuria or hematuria Musculoskeletal Musculoskeletal: Reports back pain; Denies neck pain Integumentary Denies abscess or rash Neurologic Neurologic: Denies headache(s) or weakness Allergic/Immunologic Allergic/Immunologic ED: Denies mouth swelling or urticaria EXAM Physical Exam Const Vital Signs: 03/04/21 21:44 03/04/21 22:25 03/04/21 22:29 Temperature 97.4 F L Temperature Source Temporal Pulse Rate 98 92 Respiratory Rate 22 H 18 Respiratory Effort Short of Breath Blood Pressure 172/113 H 173/113 H Blood Pressure Mean 132 133 Pulse Ox 97 Oxygen Delivery Method Room Air Room Air Positive well nourished, well developed and obese General Appearance ED: well developed Nutritional Appearance: obese HEENT Reports moist mucous membranes Neck supple and no JVD Resp normal respiratory effort Auscultation: wheezes expiratory wheezes (Mild end-expiratory wheezes) and throughout Cardio regular rate, regular rhythm and no murmurs GI normal to inspection, nondistended, normoactive bowel sounds and non-tender Palpation: soft Extremity normal to inspection General Extremety ED: Negative for edema or tenderness General Extremity: Negative for edema Neuro oriented x3, CN's II-XII intact bilaterally and no sensory deficits noted Sensorium / Orientation: alert Motor Exam: strength 5/5 throughout Psych mental status grossly normal Skin no rashes or lesions noted MDM MDM MDM Narrative Medical decision making narrative: Portable 1 view chest x-ray was obtained. On my interpretation, lung mead are clear. There is normal cardiac silhouette. Bony thorax is normal. There is no acute process noted. Radiologist also interpreted the x-ray and agrees. COVID-19 rapid antigen was obtained and was negative. CBC and comprehensive metabolic profile were within normal limits. Serum hCG was negative. Patient was given 4 puffs of an albuterol inhaler. Patient feels better on reevaluation. Patient was instructed to follow-up with a primary care physician in 5 to 7 days. Patient was instructed to take Tylenol or ibuprofen as needed for any aches or fevers. Patient understands and is agreeable with the plan. All questions were answered. Lab Data Attestation: I reviewed the patient's lab results. Labs: Laboratory Results - last 24 hr 03/04/21 03/04/21 03/04/21 22:55 22:55 22:55 WBC 9.7 RBC 5.19 Hgb 15.1 H Hct 44.7 MCV 86.1 MCH 29.1 MCHC 33.8 RDW Std Deviation 35.8 RDW Coeff of Maciel 11.4 L Plt Count 290 MPV 10.1 Immature Gran % (Auto) 0.300 Neut % (Auto) 59.2 Lymph % (Auto) 27.7 [place]ois % (Auto) 6.8 Eos % (Auto) 5.1 H Baso % (Auto) 0.9 Absolute Neuts (auto) 5.8 Absolute Lymphs (auto) 2.69 Nucleated RBC % 0 Sodium 139 Potassium 3.9 Chloride 105 Carbon Dioxide 28.0 Anion Gap 6 BUN 13 Creatinine 0.80 Estim Creat Clear Calc 91.68 Est GFR (MDRD) Af Amer 107 Est GFR (MDRD) Non-Af 88 BUN/Creatinine Ratio 16.1 Glucose 100 Calcium 9.1 Total Bilirubin 0.30 AST 18 ALT 34 Alkaline Phosphatase 104 Total Protein 8.0 Albumin 4.3 Globulin 3.7 Albumin/Globulin Ratio 1.2 Serum , Qual NEGATIVE Radiography Chest X-Ray - ED: 1 View, Read by ED Physician, Read by Radiologist and Normal Diagnostic Testing: Clinical Impression(s) from Imaging Studies Chest X-Ray 03/04/21 23:07 IMPRESSION: No acute abnormal cardiopulmonary finding. Electronically Signed: Juan Carlos Davila MD at 23:17 EST Tel , Service support , Discharge Plan Triage Chief Complaint: Shortness of Breath ED Provider: Jose Watters Dx/Rx/DC Orders Clinical Impression: Viral upper respiratory tract infection Instructions: ED URI, Viral, No Abx (Adult) Prescriptions: No Action NK RF: 0 Primary Care Provider: Care Physician,No Primary Referrals: Gatito Melendez MD [STAFF PHYSICIAN] - 5-7 Days Care Physician,No Primary [Primary Care Provider] - Disposition Disposition: Home, Self Care
[2021-03-04 23:05] LABS: Absolute Lymphocyte Count 2.69 X10^3/uL (0.83-4.51); Absolute Neutrophil Count 5.8 X10^3/uL (2.0-7.7); Basophil# 0.09 X10^3/uL; Basophil% 0.9 % (0-1); Eosinophils% 5.1 % (0-5); Hematocrit 44.7 % (37-47); Hemoglobin 15.1 g/dL (12.0-15.0); Lymphocyte # 2.69 X10^3/ul (0.83-4.51); Lymphocyte % 27.7 % (19-41); Mean Corp Hgb Conc 33.8 g/dL (32-36); Mean Corpuscular Hgb 29.1 pg (27.0-32.0); Mean Corpuscular Volume 86.1 fL (81-99); Mean Platelet Vol. 10.1 fl (6.2-12.0); Monocyte# 0.66 X10^3/uL; Monocyte% 6.8 % (0-10); NRBC Flagged by Analyzer 0 % (0-5); Neutrophil # 5.75 X10^3/uL (2.7-7.7); Neutrophil % 59.2 % (47-70); Platelet Count 290 K/mm3 (150-450); RBC Distribution Width CV 11.4 % (11.6-14.6); RBC Distribution Width SD 35.8 fl (35.1-43.9); Red Blood Count 5.19 M/mm3 (4.2-5.4); White Blood Count 9.7 K/mm3 (4.4-11.0)
--- NOTE | 2021-03-04 23:07 | RAD_ITS ---
STUDY: X-RAY CHEST REASON FOR EXAM: Female, 30 years old. Dyspnea TECHNIQUE: Portable, upright, AP chest radiograph COMPARISON: 10/08/2016 FINDINGS: The lungs are clear and expanded. There is no demonstrated pleural abnormality. Normal size heart. Normal mediastinum and gómez. Normal visualized pulmonary arteries. Normal visualized aortic arch and descending thoracic aorta. There is no demonstrated abnormality of the visualized soft tissue structures of the upper abdomen. RAD/Chest 1 View (Portable) IMPRESSION: No acute abnormal cardiopulmonary finding. Electronically Signed: Juan Carlos Davila MD at 23:17 EST Tel , Service support ,
[2021-03-04 23:10] LABS: Internal QC Validated? YES +Cl - CLEAR BKGD; Pregnancy, Serum, hCG Quali. NEGATIVE Negative
[2021-03-04 23:18] LABS: ALB/GLOB Ratio 1.2 RATIO (0.9-2.4); AST(SGOT) 18 U/L (15-37); Alanine Aminotransfer ALT/SGPT 34 U/L (13-56); Albumin, Serum 4.3 g/dL (3.2-5.0); Alkaline Phosphatase 104 U/L (45-117); Anion Gap 6 (5-15); BUN 13 mg/dL (7-18); BUN/Creat Ratio 16.1 RATIO (10-20); Calcium,Total 9.1 mg/dL (8.5-10.1); Chloride 105 mmol/L (98-107); EST Glomerular Filtration Rate 88 mL/min (>60); Est Glom Filt Rate - Afr Amer 107 mL/min (>60); Estimated Creatinine Clearance 91.68 ml/min; Globulin 3.7 g/dL (2.2-4.2); Glucose 100 mg/dL (74-106); Potassium 3.9 mmol/L (3.5-5.1); Sodium Level 139 mmol/L (136-145)
== END 2021-03-04 23:44 | disposition home or self-care (01) ==
PROVIDERS: Emergency Provider Emergency Medicine
DX: J06.9 Acute upper respiratory infection, unspecified (principal); R06.02 Shortness of breath; F17.210 Nicotine dependence, cigarettes, uncomplicated; E66.9 Obesity, unspecified
CPT/HCPCS: 71045; 80053; 84703; 85025; 87426; 99285; A4216

== ENCOUNTER 2021-03-13 13:15 | Emergency (ER) | payer BC, SELFPAY ==
[2021-03-13 13:15] VITALS: BP 180/115; PULSE 80; RESP 16; TEMP 36.3; O2SAT 100; BMI 35.6
[2021-03-13 16:49] LABS: Mucous, Urine 0 SEEN /hpf (<or=2+); Red Blood Cells-Urine 0 SEEN /hpf (0-5); White Blood Cells 0 SEEN /hpf (0-5)
[2021-03-13 17:00] LABS: Color, Urine Yellow (Yellow); Glucose, Dipstick Normal (Normal); Ketone-Dipstick 5 mg/dl (Negative); Leukocyte Esterase-Dipstick Negative /ul (Negative); Nitrite-Dipstick Negative (Negative); Occult Blood-Urine Negative /ul (Negative); Protein-Dipstick 30 mg/dl (Negative); Specific Gravity, Urine 1.025 (1.002-1.030); Urine Bilirubin Dipstick Negative (Negative); Urine Clarity Clear (Clear); Urine Urobilinogen Normal (Normal)
[2021-03-13 17:14] LABS: Bacteria RARE /hpf (None Seen); Calcium Oxalate Crystals Ur 1+ /hpf (<or=2+); Squamous Epithelial Cells - UA 0-5 SEEN /hpf (5-10)
--- NOTE | 2021-03-13 17:34 | NURSING ---
CBC IS TOO SHORT NEEDS REDRAWN
[2021-03-13 17:44] LABS: AST(SGOT) 39 U/L (15-37); Alanine Aminotransfer ALT/SGPT 35 U/L (13-56); Albumin, Serum 3.8 g/dL (3.2-5.0); Alkaline Phosphatase 87 U/L (45-117); Anion Gap 8 (5-15); BUN 16 mg/dL (7-18); BUN/Creat Ratio 19.5 RATIO (10-20); Bilirubin, Direct < 0.05 mg/dL (0.00-0.30); Chloride 108 mmol/L (98-107); Creatinine, Serum 0.82 mg/dL (0.55-1.02); EST Glomerular Filtration Rate 86 mL/min (>60); Est Glom Filt Rate - Afr Amer 104 mL/min (>60); Estimated Creatinine Clearance 89.45 ml/min; Globulin 3.8 g/dL (2.2-4.2); Glucose 86 mg/dL (74-106); Lipase 59 U/L (73-393); Potassium 4.6 mmol/L (3.5-5.1); Protein, Total 7.6 g/dL (6.4-8.2); Sodium Level 137 mmol/L (136-145)
--- NOTE | 2021-03-13 17:50 | EDS_ITS ---
HPI History of Present Illness Chief Complaint: Flank Pain Informant: patient Onset/Context/Timing Onset: Today Narrative Narrative: Patient is a 30-year-old female with history of kidney infection and kidney stones presenting with back pain, nausea and vomiting. She notes that this started today. It is in her lower back and she is also had associated urinary frequency. Pain is constant nature. Worse with movement. She denies any abnormal vaginal discharge or bleeding. Her last menstrual period was a week ago she does not think she is . She was vomiting at work so she came here. She denies any body aches, fever or chills. Patient took Motrin about 2 and half hours prior to arrival. No other complaints at this time. [facility] Medical History Former smoker Kidney stones Home Medications ibuprofen 600 mg PO Q6H PRN PRN #20 tab 03/13/21 [Rx Last Taken Unknown] ondansetron HCl 4 mg PO TID 4 Days #12 tab 03/13/21 [Rx Last Taken Unknown] Allergy/AdvReac Type Severity Reaction Status Date / Time No Known Allergies Allergy Verified 03/13/21 13:18 Surgical History History of removal of ureteral stent S/P ureteral stent placement Social History Smoking Status: Heavy Smoker (>10/day) ROS [facility] ED Constitutional Constitutional ED: Denies chills or fever(s) Eyes Eyes: Denies change in vision ENT ENT ED: Denies ear pain Cardiovascular Cardiovascular: Denies chest pain Respiratory/Chest Respiratory/Chest: Denies cough or dyspnea Gastrointestinal Gastrointestinal: Reports nausea and vomiting; Denies abdominal pain, constipation or diarrhea Genitourinary Genitourinary ED: Reports urinary frequency; Denies dysuria Musculoskeletal Musculoskeletal: Reports back pain; Denies myalgias or neck pain Integumentary Denies rash Neurologic Neurologic: Denies headache(s) or weakness Psychiatric Psychiatric: Denies anxiety or depression EXAM Physical Exam Const Vital Signs: 03/13/21 13:15 03/13/21 21:43 Temperature 97.3 F L Temperature Source Temporal Pulse Rate 80 70 Respiratory Rate 16 16 Blood Pressure 180/115 H 158/126 H Blood Pressure Mean 136 136 Pulse Ox 100 97 Oxygen Delivery Method Room Air Room Air Positive well nourished and well developed General Appearance ED: well developed HEENT Reports moist mucous membranes Negative for trauma Eyes PERRL and EOMs intact bilaterally Neck no lymphadenopathy and supple Chest Wall inspection of chest normal Resp normal respiratory effort Cardio regular rate, regular rhythm and no murmurs GI normal to inspection, nondistended, normoactive bowel sounds and non-tender Palpation: soft Back/Spine Back/Spine Narrative: Mild bilateral lumbar paraspinal tenderness. Right worse than left. General Back: CVA tenderness right Lumbar Spine / Lower Back: Negative for lumbar spinal tenderness Extremity normal to inspection General Extremety ED: Negative for edema or tenderness General Extremity: Negative for edema Neuro oriented x3 and CN's II-XII intact bilaterally Sensorium / Orientation: alert Motor Exam: Negative for general weakness Psych mental status grossly normal Skin no rashes or lesions noted and no wounds MDM MDM MDM Narrative Medical decision making narrative: Patient is a 30-year-old female with history of kidney stones as well as kidney infections presenting with low back pain nausea and urinary frequency. Denies any vaginal bleeding or discharge. test is negative. Patient is given IV Toradol and Zofran as well as IV fluids in the ER. She is initially hypertensive upon arrival. She states she had negative Covid test over [place] and does not think she has Covid. She denies any URI symptoms at this time. She notes she has been coughing a lot and is not sure if she maybe pulled a muscle in her back. Urinalysis is not consistent with infection however she does have a calcium oxalate crystal in her urine. CT of the abdomen and pelvis without contrast not show any kidney stone or other hydronephrosis. CMP is unremarkable. On reevaluation patient is feeling better. She is anxious to go home. She is given prescription for Zofran as well as Motrin 600 mg. I suspect her pain is more muscle skeletal in nature given her negative work-up and stable vital signs. Patient counseled return precautions. Lab Data Attestation: I reviewed the patient's lab results. Labs: Laboratory Results - last 24 hr 03/13/21 03/13/21 03/13/21 13:25 15:14 15:14 WBC Cancelled Corrected WBC Cancelled RBC Cancelled Hgb Cancelled Hct Cancelled MCV Cancelled MCH Cancelled MCHC Cancelled RDW Std Deviation Cancelled RDW Coeff of Maciel Cancelled Plt Count Cancelled MPV Cancelled Immature Gran % (Auto) Cancelled Neut % (Auto) Cancelled Lymph % (Auto) Cancelled Grant % (Auto) Cancelled Eos % (Auto) Cancelled Baso % (Auto) Cancelled Absolute Neuts (auto) Cancelled Absolute Lymphs (auto) Cancelled Total Counted Cancelled Neutrophils % (Manual) Cancelled Band Neutrophils % Cancelled Lymphocytes % (Manual) Cancelled Monocytes % (Manual) Cancelled Eosinophils % (Manual) Cancelled Basophils % (Manual) Cancelled Metamyelocytes % Cancelled Myelocytes % Cancelled Promyelocytes % Cancelled Blast Cells % Cancelled Plasma Cell % (Manual) Cancelled Other Cells % Cancelled Nucleated RBC % Cancelled Nucleated RBCs/100 WBC Cancelled Differential Comment Cancelled Diff Path Review Cancelled Hypersegmented Neuts Cancelled Atypical Lymphocytes Cancelled Reactive Lymphocytes Cancelled Smudge Cells Cancelled Toxic Granulation Cancelled Toxic Vacuolation Cancelled Dohle Bodies Cancelled Apryl Rods Cancelled Platelet Estimate Cancelled Plt Morphology Comment Cancelled RBC Morphology Cancelled Polychromasia Cancelled Hypochromasia Cancelled Poikilocytosis Cancelled Basophilic Stippling Cancelled Anisocytosis Cancelled Microcytosis Cancelled Macrocytosis Cancelled Spherocytes Cancelled Sickle Cells Cancelled Target Cells Cancelled Tear Drop Cells Cancelled Ovalocytes Cancelled Stomatocytes Cancelled [place] Bodies Cancelled [place] Cells Cancelled Bite Cells Cancelled Crenated Cell Cancelled Acanthocytes (Spur) Cancelled Rouleaux Cancelled Schistocytes Cancelled Sodium 137 Potassium 4.6 Chloride 108 H Carbon Dioxide 21.0 Anion Gap 8 BUN 16 Creatinine 0.82 Estim Creat Clear Calc 89.45 Est GFR (MDRD) Af Amer 104 Est GFR (MDRD) Non-Af 86 BUN/Creatinine Ratio 19.5 Glucose 86 Calcium 9.0 Total Bilirubin 0.30 Direct Bilirubin < 0.05 AST 39 H ALT 35 Alkaline Phosphatase 87 Total Protein 7.6 Albumin 3.8 Globulin 3.8 Lipase 59 L Serum , Qual Urine Color Yellow Urine Clarity Clear Urine pH 5.0 Ur Specific [place] 1.025 Urine Protein 30 H Urine Glucose (UA) Normal Urine Ketones 5 H Urine Occult Blood Negative Urine Nitrite Negative Urine Bilirubin Negative Urine Urobilinogen Normal Ur Leukocyte Esterase Negative Urine RBC 0 SEEN Urine WBC 0 SEEN Ur Squamous Epith Cells 0-5 SEEN Calcium Oxalate Crystal 1+ Urine Bacteria RARE Urine Mucus 0 SEEN 03/13/21 03/13/21 17:30 17:30 WBC 3.7 L Corrected WBC RBC 4.89 Hgb 14.1 Hct 42.7 MCV 87.3 MCH 28.8 MCHC 33.0 RDW Std Deviation 38.6 RDW Coeff of Maciel 12.0 Plt Count 226 MPV 10.5 Immature Gran % (Auto) 0.000 Neut % (Auto) 46.1 L Lymph % (Auto) 38.6 Grant % (Auto) 13.2 H Eos % (Auto) 1.6 Baso % (Auto) 0.5 Absolute Neuts (auto) 1.7 L Absolute Lymphs (auto) 1.41 Total Counted Neutrophils % (Manual) Band Neutrophils % Lymphocytes % (Manual) Monocytes % (Manual) Eosinophils % (Manual) Basophils % (Manual) Metamyelocytes % Myelocytes % Promyelocytes % Blast Cells % Plasma Cell % (Manual) Other Cells % Nucleated RBC % 0 Nucleated RBCs/100 WBC Differential Comment Diff Path Review Hypersegmented Neuts Atypical Lymphocytes Reactive Lymphocytes Smudge Cells Toxic Granulation Toxic Vacuolation Dohle Bodies Apryl Rods Platelet Estimate Plt Morphology Comment RBC Morphology Polychromasia Hypochromasia Poikilocytosis Basophilic Stippling Anisocytosis Microcytosis Macrocytosis Spherocytes Sickle Cells Target Cells Tear Drop Cells Ovalocytes Stomatocytes [place] Bodies [place] Cells Bite Cells Crenated Cell Acanthocytes (Spur) Rouleaux Schistocytes Sodium Potassium Chloride Carbon Dioxide Anion Gap BUN Creatinine Estim Creat Clear Calc Est GFR (MDRD) Af Amer Est GFR (MDRD) Non-Af BUN/Creatinine Ratio Glucose Calcium Total Bilirubin Direct Bilirubin AST ALT Alkaline Phosphatase Total Protein Albumin Globulin Lipase Serum , Qual NEGATIVE Urine Color Urine Clarity Urine pH Ur Specific [place] Urine Protein Urine Glucose (UA) Urine Ketones Urine Occult Blood Urine Nitrite Urine Bilirubin Urine Urobilinogen Ur Leukocyte Esterase Urine RBC Urine WBC Ur Squamous Epith Cells Calcium Oxalate Crystal Urine Bacteria Urine Mucus Radiography Diagnostic Testing: Clinical Impression(s) from Imaging Studies Abdomen/Pelvis CT 03/13/21 18:55 IMPRESSION: No acute findings in the abdomen or pelvis. No nephrolithiasis or obstructive uropathy. Individualized dose optimization techniques were used for this CT. at 2045 Reported and signed by: Winston Carias MD Electronically Signed: Winston Carias MD at 20:44 EST Tel , Service support , Discharge Plan Triage Chief Complaint: Flank Pain ED Provider: Shelby Ugarte Dx/Rx/DC Orders Clinical Impression: Low back pain, Nausea & vomiting Instructions: ED Back Pain (Acute or Chronic), ED Vomiting (Adult) Prescriptions: New ondansetron HCl 4 mg tablet 4 mg PO TID 4 Days Qty: 12 RF: 0 ibuprofen 600 mg tablet 600 mg PO Q6H PRN PRN (Reason: fever or pain) Qty: 20 RF: 0 Primary Care Provider: Care Physician,No Primary Referrals: Gatito Wooten MD [STAFF PHYSICIAN] - Care Physician,No Primary [Primary Care Provider] - Disposition Disposition: Home, Self Care Discharge Date/Time: 03/13/21 21:50
[2021-03-13] MEDS: 0.9% Normal Saline 1,000 ML 999 ML IV (18:05)
[2021-03-13] MEDS: Ketorolac 15 MG/ML Vial IV (18:05)
[2021-03-13] MEDS: Ondansetron 4 MG/2 ML Vial IV (18:06)
[2021-03-13 18:29] LABS: Absolute Lymphocyte Count 1.41 X10^3/uL (0.83-4.51); Absolute Neutrophil Count 1.7 X10^3/uL (2.0-7.7); Basophil# 0.02 X10^3/uL; Basophil% 0.5 % (0-1); Eosinophil# 0.06 X10^3/uL; Eosinophils% 1.6 % (0-5); Hematocrit 42.7 % (37-47); Hemoglobin 14.1 g/dL (12.0-15.0); Lymphocyte # 1.41 X10^3/ul (0.83-4.51); Lymphocyte % 38.6 % (19-41); Mean Corpuscular Hgb 28.8 pg (27.0-32.0); Mean Corpuscular Volume 87.3 fL (81-99); Mean Platelet Vol. 10.5 fl (6.2-12.0); Monocyte# 0.48 X10^3/uL; Monocyte% 13.2 % (0-10); NRBC Flagged by Analyzer 0 % (0-5); Neutrophil # 1.68 X10^3/uL (2.7-7.7); Neutrophil % 46.1 % (47-70); Platelet Count 226 K/mm3 (150-450); RBC Distribution Width SD 38.6 fl (35.1-43.9); Red Blood Count 4.89 M/mm3 (4.2-5.4); White Blood Count 3.7 K/mm3 (4.4-11.0)
[2021-03-13 18:46] LABS: Internal QC Validated? YES +Cl - CLEAR BKGD; Pregnancy, Serum, hCG Quali. NEGATIVE Negative
--- NOTE | 2021-03-13 18:55 | CT_ITS ---
HISTORY: Kidney Stone EXAMINATION: CT Abdomen And Pelvis W/O Contrast Injection TECHNIQUE: Multiple axial images were obtained of the abdomen and pelvis without oral or IV contrast. A radiation dose optimization technique was used for this scan. IV Contrast dosage and agent: None. Oral contrast: None. COMPARISON: 07/18/20. FINDINGS: LOWER CHEST: Lung bases are clear. No cardiomegaly or pericardial effusion. LIVER: Homogeneous. No focal mass. GALLBLADDER AND BILIARY TREE: No calcified gallstones. No gallbladder distension or wall edema. No intra- or extrahepatic biliary ductal dilation. PANCREAS: No focal cystic or solid mass. SPLEEN: Normal size without focal cystic or solid mass. ADRENAL GLANDS: No nodules. KIDNEYS AND URETERS: No hydronephrosis or nephrolithiasis. PERITONEUM: No ascites or free air. BOWEL: Normal appendix. No stomach or bowel distension. No focal inflammatory bowel wall changes. LYMPH NODES: No enlarged mesenteric or retroperitoneal lymph nodes. VESSELS: Aorta is non-dilated. URINARY BLADDER: Unremarkable. REPRODUCTIVE ORGANS: No pelvic masses. ABDOMINAL WALL: No discrete abdominal or pelvic wall hernia. BONES: No acute or aggressive abnormality. CT/Abdomen/Pelvis without Cont IMPRESSION: No acute findings in the abdomen or pelvis. No nephrolithiasis or obstructive uropathy. Individualized dose optimization techniques were used for this CT. at 2045 Reported and signed by: Winston Carias MD Electronically Signed: Winston Carias MD at 20:44 EST Tel , Service support ,
[2021-03-13 21:43] VITALS: BP 158/126; PULSE 70; RESP 16; O2SAT 97
== END 2021-03-13 21:50 | disposition home or self-care (01) ==
PROVIDERS: Emergency Provider Emergency Medicine; Visit Provider Emergency Medicine
DX: M54.50 Low back pain, unspecified (principal); R11.2 Nausea with vomiting, unspecified; R35.0 Frequency of micturition; F17.200 Nicotine dependence, unspecified, uncomplicated; Z87.442 Personal history of urinary calculi; Z87.440 Personal history of urinary (tract) infections
CPT/HCPCS: 74176; 80048; 80076; 81001; 83690; 84703; 85025; 96361; 96374; 96375; 99285; J7030; A4216; J2405

== ENCOUNTER → 2021-08-17 | Outpatient (CLI) | payer BC, SELFPAY ==
[2021-08-17 17:51] LABS: Hematocrit 40.3 % (37-47); Hemoglobin 13.6 g/dL (12.0-15.0); Mean Corp Hgb Conc 33.7 g/dL (32-36); Mean Corpuscular Hgb 29.8 pg (27.0-32.0); Mean Corpuscular Volume 88.2 fL (81-99); Mean Platelet Vol. 10.7 fl (6.2-12.0); Platelet Count 254 K/mm3 (150-450); RBC Distribution Width CV 11.8 % (11.6-14.6); RBC Distribution Width SD 37.8 fl (35.1-43.9); Red Blood Count 4.57 M/mm3 (4.2-5.4); White Blood Count 11.3 K/mm3 (4.4-11.0)
[2021-08-17 18:35] LABS: ALB/GLOB Ratio 1.2 RATIO (0.9-2.4); AST(SGOT) 16 U/L (15-37); Alanine Aminotransfer ALT/SGPT 36 U/L (13-56); Alkaline Phosphatase 90 U/L (45-117); Anion Gap 7 (5-15); BUN 11 mg/dL (7-18); BUN/Creat Ratio 14.4 RATIO (10-20); Calcium,Total 9.2 mg/dL (8.5-10.1); Chloride 106 mmol/L (98-107); Cholesterol 183 mg/dL (200); Creatinine, Serum 0.76 mg/dL (0.55-1.02); EST Glomerular Filtration Rate 93 mL/min (>60); Est Glom Filt Rate - Afr Amer 113 mL/min (>60); Globulin 3.3 g/dL (2.2-4.2); Glucose 95 mg/dL (74-106); High Density Lipoprotein 33 mg/dL; Potassium 3.4 mmol/L (3.5-5.1); Protein, Total 7.3 g/dL (6.4-8.2); Sodium Level 138 mmol/L (136-145); Thyroid Stim Hormone (TSH) 1.32 uIU/mL (0.358-3.74); Triglycerides 158 mg/dL; Very Low Density Lipoprotein 32 mg/dL (5-40)
== END | disposition home or self-care (01) ==
LOC: MFPLAB 16:46
PROVIDERS: PCP Family Medicine; Referring Provider Family Medicine; Visit Provider Family Medicine
DX: E66.9 Obesity, unspecified (principal)
CPT/HCPCS: 36415; 80053; 80061; 84443; 85027

== ENCOUNTER 2021-11-21 17:38 | Emergency (ER) | payer BC, SELFPAY ==
[2021-11-21 17:39] VITALS: BP 180/75; PULSE 79; RESP 16; TEMP 36.2; O2SAT 98; BMI 35.4
--- NOTE | 2021-11-21 18:58 | CT_ITS ---
STUDY: CT Abdomen And Pelvis W/O Contrast Injection 11/21/2021 8:11 PM REASON FOR EXAM: Female, 31 years old. ABDOMINAL PAIN Kidney Stone TECHNIQUE: Transaxial images were obtained without oral contrast, and without intravenous contrast. Individualized dose optimization techniques were used for this CT. COMPARISON: 03/13/2021 FINDINGS: The visualized lung bases are unremarkable. The visualized portions of the heart are within normal limits. Unremarkable liver. Unremarkable gallbladder and extrahepatic biliary system. Unremarkable spleen. Unremarkable pancreas. Unremarkable bilateral adrenal glands. No acute findings of the right kidney. Non obstructive 2 mm left renal parenchymal stones. Unremarkable visualized stomach. Unremarkable small intestine. There are multiple colonic diverticula consistent with diverticulosis. The appendix is visualized and appears unremarkable. There are no acute findings of the abdominal aorta. Unremarkable inferior vena cava. Subcentimeter mesenteric lymph nodes. Unremarkable urinary bladder. Unremarkable abdominal wall. There are diffuse degenerative changes of the visualized lumbar spine. CT/Abdomen/Pelvis without Cont IMPRESSION: (NOT LISTED IN ORDER OF SIGNIFICANCE) There are no acute findings. Non obstructive 1 to 2 mm left renal parenchymal stones. Other findings as above. Electronically Signed: Sven Restrepo MD at 20:13 EDT ,
--- NOTE | 2021-11-21 18:59 | EDS_ITS ---
HPI History of Present Illness Chief Complaint: Back Informant: patient Narrative Narrative: Nontraumatic left flank pain waxing waning since yesterday. No radicular symptoms. No nausea or vomiting. No urinary symptoms. She states she noted blood however just finished her menstrual period also. Reports pain does not worse with movement. Pain feels similar to a kidney stone 2 years ago. Currently pain is 6 out of 10. No history of gastric ulcers or kidney injury. Prior similar symptoms: Yes PFSH PFSH Medical History Former smoker Kidney stones Home Medications NK 11/21/21 [History Last Taken Unknown] Allergy/AdvReac Type Severity Reaction Status Date / Time No Known Allergies Allergy Verified 11/21/21 17:41 Surgical History History of removal of ureteral stent S/P ureteral stent placement Social History Smoking Status: Former smoker ROS ROS ED Constitutional Constitutional ED: Denies chills, fever(s) or sweats Eyes Eyes: Denies change in vision ENT ENT ED: Denies dysphagia or sore throat Cardiovascular Cardiovascular: Denies chest pain, leg edema, palpitations or racing heartbeat Respiratory/Chest Respiratory/Chest: Denies cough, dyspnea or dyspnea on exertion Gastrointestinal Gastrointestinal: Denies abdominal pain, diarrhea, nausea or vomiting Genitourinary Genitourinary ED: Denies dysuria, hematuria or urinary frequency Musculoskeletal Musculoskeletal: Reports back pain; Denies extremity pain or neck pain Integumentary Denies rash or wounds Neurologic Neurologic: Denies headache(s), paresthesias or weakness EXAM Physical Exam Const Vital Signs: 11/21/21 17:39 11/21/21 19:22 11/21/21 21:02 Temperature 97.2 F L Temperature Source Temporal Pulse Rate 79 86 Respiratory Rate 16 16 15 Blood Pressure 180/75 H 158/76 H Blood Pressure Mean 110 Pulse Ox 98 98 Oxygen Delivery Method Room Air Positive well nourished and well developed General Appearance ED: well developed and NAD HEENT Reports moist mucous membranes normocephalic and atraumatic Eyes PERRL, EOMs intact bilaterally and conjunctivae normal General Eye ED: Yes normal appearance of both eyes Neck no lymphadenopathy and supple General: Negative for tenderness Chest Wall Chest: Negative for tenderness Resp normal respiratory effort and normal air movement Effort and Inspection: symmetric chest movement; Negative for respiratory distress Cardio regular rate, regular rhythm and no murmurs Peripheral Pulses: pulses 2+ throughout GI normal to inspection, nondistended, normoactive bowel sounds and non-tender Palpation: Negative for guarding or rebound tenderness present Back/Spine no CVA tenderness and no thoracic nor lumbar tenderness Back/Spine Narrative: No rash. Extremity normal to inspection General Extremety ED: Negative for edema or tenderness General Extremity: Negative for edema Neuro oriented x3 and no sensory deficits noted Sensorium / Orientation: awake and alert Skin no rashes or lesions noted and no wounds MDM MDM MDM Narrative Medical decision making narrative: Patient nontoxic. Reports nontraumatic pain not worse with movement reporting pain similar to a kidney stone 2 years ago. She would like work-up for this. Urine noted hematuria labs are stable creatinine 0.83 CT scan notes nephrolithiasis without any obstruction. She is given follow-up with urology. She was treated with Toradol with improvement of symptoms. She has ibuprofen at home. All questions were answered. Lab Data Attestation: I reviewed the patient's lab results. Labs: Laboratory Results - last 24 hr 11/21/21 11/21/21 11/21/21 19:10 19:20 19:20 WBC 9.4 RBC 4.75 Hgb 14.1 Hct 41.2 MCV 86.7 MCH 29.7 MCHC 34.2 RDW Std Deviation 36.5 RDW Coeff of Maciel 11.4 L Plt Count 281 MPV 10.1 Immature Gran % (Auto) 0.300 Neut % (Auto) 52.9 Lymph % (Auto) 35.1 Desha % (Auto) 7.2 Eos % (Auto) 3.9 Baso % (Auto) 0.6 Absolute Neuts (auto) 5.0 Absolute Lymphs (auto) 3.31 Nucleated RBC % 0 Sodium 141 Potassium 3.3 L Chloride 107 Carbon Dioxide 28.0 Anion Gap 6 BUN 14 Creatinine 0.83 Estim Creat Clear Calc 87.56 Est GFR (MDRD) Af Amer 102 Est GFR (MDRD) Non-Af 84 BUN/Creatinine Ratio 16.8 Glucose 99 Calcium 9.3 Urine Color Yellow Urine Clarity Clear Urine pH 6.0 Ur Specific [place] 1.025 Urine Protein 15 H Urine Glucose (UA) Normal Urine Ketones 5 H Urine Occult Blood 10 H Urine Nitrite Negative Urine Bilirubin Negative Urine Urobilinogen Normal Ur Leukocyte Esterase Negative Urine RBC 0-5 SEEN Urine WBC 0 SEEN Ur Squamous Epith Cells 0-5 SEEN Urine Bacteria 1+ Urine Mucus 1+ Urine Test Negative Radiography Diagnostic Testing: Clinical Impression(s) from Imaging Studies Abdomen/Pelvis CT 11/21/21 18:58 IMPRESSION: (NOT LISTED IN ORDER OF SIGNIFICANCE) There are no acute findings. Non obstructive 1 to 2 mm left renal parenchymal stones. Other findings as above. Electronically Signed: Sven Restrepo MD at 20:13 EDT , Discharge Plan Triage Chief Complaint: Back ED Provider: Josh Cochran Dx/Rx/DC Orders Clinical Impression: Left flank pain, Nephrolithiasis, Hematuria Instructions: ED Flank Pain, Uncertain Cause, ED Hematuria, ED Kidney Stone Undescended No ... Prescriptions: No Action NK Primary Care Provider: Gatito Wooten Referrals: Magno Josue MD [Med Staff - Active Staff] - 5-7 Days Gatito Wooten MD [Primary Care Provider] - Disposition Disposition: Home, Self Care Discharge Date/Time: 11/21/21 21:03
[2021-11-21 19:17] LABS: White Blood Cells 0 SEEN /hpf (0-5)
[2021-11-21] MEDS: Ketorolac 15 MG/ML Vial IV (19:19)
[2021-11-21 19:22] VITALS: RESP 16
[2021-11-21] MEDS: 0.9% Normal Saline 1,000 ML 250 ML IV (19:22)
[2021-11-21 19:25] LABS: Color, Urine Yellow (Yellow); Glucose, Dipstick Normal (Normal); Ketone-Dipstick 5 mg/dl (Negative); Leukocyte Esterase-Dipstick Negative /ul (Negative); Nitrite-Dipstick Negative (Negative); Occult Blood-Urine 10 /ul (Negative); Protein-Dipstick 15 mg/dl (Negative); Specific Gravity, Urine 1.025 (1.002-1.030); Urine Bilirubin Dipstick Negative (Negative); Urine Clarity Clear (Clear); Urine Urobilinogen Normal (Normal)
[2021-11-21 19:27] LABS: Absolute Lymphocyte Count 3.31 X10^3/uL (0.83-4.51); Basophil# 0.06 X10^3/uL; Basophil% 0.6 % (0-1); Eosinophil# 0.37 X10^3/uL; Eosinophils% 3.9 % (0-5); Hematocrit 41.2 % (37-47); Hemoglobin 14.1 g/dL (12.0-15.0); Lymphocyte # 3.31 X10^3/ul (0.83-4.51); Lymphocyte % 35.1 % (19-41); Mean Corp Hgb Conc 34.2 g/dL (32-36); Mean Corpuscular Hgb 29.7 pg (27.0-32.0); Mean Corpuscular Volume 86.7 fL (81-99); Mean Platelet Vol. 10.1 fl (6.2-12.0); Monocyte# 0.68 X10^3/uL; Monocyte% 7.2 % (0-10); NRBC Flagged by Analyzer 0 % (0-5); Neutrophil # 4.98 X10^3/uL (2.7-7.7); Neutrophil % 52.9 % (47-70); Platelet Count 281 K/mm3 (150-450); RBC Distribution Width CV 11.4 % (11.6-14.6); RBC Distribution Width SD 36.5 fl (35.1-43.9); Red Blood Count 4.75 M/mm3 (4.2-5.4); White Blood Count 9.4 K/mm3 (4.4-11.0)
[2021-11-21 19:29] LABS: Internal QC Validated? YES +Cl - CLEAR BKGD; Pregnancy, Urine Negative Negative
[2021-11-21 19:39] LABS: Red Blood Cells-Urine 0-5 SEEN /hpf (0-5)
[2021-11-21 19:40] LABS: Mucous, Urine 1+ /hpf (<or=2+); Squamous Epithelial Cells - UA 0-5 SEEN /hpf (5-10)
[2021-11-21 19:41] LABS: Anion Gap 6 (5-15); BUN 14 mg/dL (7-18); BUN/Creat Ratio 16.8 RATIO (10-20); Calcium,Total 9.3 mg/dL (8.5-10.1); Chloride 107 mmol/L (98-107); Creatinine, Serum 0.83 mg/dL (0.55-1.02); EST Glomerular Filtration Rate 84 mL/min (>60); Est Glom Filt Rate - Afr Amer 102 mL/min (>60); Estimated Creatinine Clearance 87.56 ml/min; Glucose 99 mg/dL (74-106); Potassium 3.3 mmol/L (3.5-5.1); Sodium Level 141 mmol/L (136-145)
[2021-11-21 19:41] LABS: Bacteria 1+ /hpf (None Seen)
[2021-11-21 21:02] VITALS: BP 158/76; PULSE 86; RESP 15; O2SAT 98
== END 2021-11-21 21:03 | disposition home or self-care (01) ==
PROVIDERS: Emergency Provider Emergency Medicine; PCP Family Medicine; Visit Provider Emergency Medicine
DX: N20.0 Calculus of kidney (principal); R31.9 Hematuria, unspecified; Z87.891 Personal history of nicotine dependence
CPT/HCPCS: 74176; 80048; 81001; 81025; 85025; 96361; 96374; 99283; J7030; A4216

== ENCOUNTER → 2022-03-14 | Outpatient (CLI) | payer BC, SELFPAY ==
--- NOTE | 2022-03-14 11:23 | RAD_ITS ---
HISTORY: Renal colic. TECHNIQUE: XR Abdomen 1 View. COMPARISON: CT 11/21/2021. FINDINGS: BOWEL GAS PATTERN: No dilated bowel loops identified. FREE AIR: Not assessed on supine view. CALCIFICATIONS: 2 mm left renal calculi. 2 mm calcification at the level of the left L3 transverse process. BONES: Unremarkable. RAD/Abdomen Single View IMPRESSION: Left nephrolithiasis. Possible small calculus in the left mid ureter. Electronically Signed: Romina Gamble MD at 12:29 EST ,
[2022-03-14 15:21] LABS: Absolute Lymphocyte Count 1.87 X10^3/uL (0.83-4.51); Basophil# 0.06 X10^3/uL; Basophil% 0.9 % (0-1); Eosinophil# 0.34 X10^3/uL; Eosinophils% 5.1 % (0-5); Hematocrit 42.9 % (37-47); Hemoglobin 14.5 g/dL (12.0-15.0); Lymphocyte # 1.87 X10^3/ul (0.83-4.51); Mean Corp Hgb Conc 33.8 g/dL (32-36); Mean Corpuscular Hgb 30.1 pg (27.0-32.0); Mean Platelet Vol. 10.7 fl (6.2-12.0); Monocyte# 0.38 X10^3/uL; Monocyte% 5.7 % (0-10); NRBC Flagged by Analyzer 0 % (0-5); Neutrophil # 4.02 X10^3/uL (2.7-7.7); Neutrophil % 60.2 % (47-70); Platelet Count 256 K/mm3 (150-450); RBC Distribution Width CV 11.8 % (11.6-14.6); RBC Distribution Width SD 38.3 fl (35.1-43.9); Red Blood Count 4.82 M/mm3 (4.2-5.4); White Blood Count 6.7 K/mm3 (4.4-11.0)
[2022-03-14 15:32] LABS: Anion Gap 6 (5-15); BUN 12 mg/dL (7-18); BUN/Creat Ratio 16.6 RATIO (10-20); Calcium,Total 8.9 mg/dL (8.5-10.1); Chloride 107 mmol/L (98-107); Creatinine, Serum 0.72 mg/dL (0.55-1.02); EST Glomerular Filtration Rate 99 mL/min (>60); Est Glom Filt Rate - Afr Amer 120 mL/min (>60); Glucose 91 mg/dL (74-106); Potassium 4.2 mmol/L (3.5-5.1); Sodium Level 140 mmol/L (136-145)
== END | disposition home or self-care (01) ==
PROVIDERS: PCP Family Medicine; Referring Provider Family Medicine; Visit Provider Family Medicine
DX: N23 Unspecified renal colic (principal)
CPT/HCPCS: 36415; 74018; 80048; 85025; 87086; 87088

== ENCOUNTER 2022-12-11 15:05 | Emergency (ER) | payer BC, SELFPAY ==
[2022-12-11] VITALS (9 sets, daily range): BP systolic 92–182; BP diastolic 67–115; PULSE 98–108; RESP 11–24; TEMP 36.2; O2SAT 95–98; BMI 36.3
--- NOTE | 2022-12-11 15:30 | EX.ED.DYSGE1 ---
HPI <DANIEL Cervantes - Last Filed: 12/11/22 17:10> History of Present Illness Chief Complaint: Shortness of Breath Narrative Narrative: Patient presenting due to feeling like she is having trouble catching her breath. She reports that she has had similar episodes in the past that have resolved on their own and usually occur when she has bad allergies. She reports a history of tobacco abuse but no longer smokes, she denies any history of asthma or COPD. She reports that she noticed that she has been sneezing more and has a slight cough. She denies any history of blood clots, recent surgery/procedures, recent immobilization, oral contraceptive use, history of cancer. She denies having any chest pain. PFSH <DANIEL Cervantes - Last Filed: 12/11/22 17:10> PFSH Medical History Former smoker Kidney stones Home Medications albuterol sulfate 90 mcg/actuation aerosol inhaler (Ventolin HFA) 1 - 2 puff inhalation Q4H PRN PRN Wheezing 2 weeks #1 inh 12/11/22 [Rx Last Taken Unknown] prednisone 20 mg tablet 40 mg (2 x 20 mg) PO DAILY 4 days #8 tabs 12/11/22 [Rx Last Taken Unknown] Allergy/AdvReac Type Severity Reaction Status Date / Time No Known Allergies Allergy Verified 12/11/22 15:06 Surgical History History of removal of ureteral stent S/P ureteral stent placement Social History Smoking Status: Former smoker ROS <DANIEL Cervantes - Last Filed: 12/11/22 17:10> ROS ED Constitutional Constitutional ED: Denies chills or fever(s) Cardiovascular Cardiovascular: Denies chest pain or palpitations Respiratory/Chest Respiratory/Chest: Reports cough, dyspnea and dyspnea on exertion Gastrointestinal Gastrointestinal: Denies abdominal pain, nausea or vomiting Musculoskeletal Musculoskeletal: Denies arthralgias or myalgias Integumentary Denies rash Neurologic Neurologic: Denies weakness EXAM <DANIEL Cervantes - Last Filed: 12/11/22 17:10> Physical Exam Const Vital Signs: 12/11/22 15:07 12/11/22 15:25 12/11/22 15:26 Temperature 97.2 F L Temperature Source Temporal Pulse Rate 108 H 104 H Respiratory Rate 24 H 11 L Respiratory Effort Short of Breath Labored Respiratory Depth Normal Respiratory Pattern Tachypnea Blood Pressure 92/67 Blood Pressure Mean 75 Pulse Ox 97 95 Oxygen Delivery Method Room Air Room Air Room Air 12/11/22 15:27 12/11/22 15:42 12/11/22 16:04 Temperature Temperature Source Pulse Rate 103 H 99 98 Respiratory Rate 13 14 22 H Respiratory Effort Respiratory Depth Respiratory Pattern Normal Blood Pressure 161/103 H Blood Pressure Mean 122 Pulse Ox 96 98 Oxygen Delivery Method Room Air Room Air 12/11/22 16:24 12/11/22 16:39 12/11/22 16:52 Temperature Temperature Source Pulse Rate 99 98 105 H Respiratory Rate 18 12 22 H Respiratory Effort Respiratory Depth Respiratory Pattern Normal Blood Pressure 175/115 H 182/92 H Blood Pressure Mean 135 Pulse Ox 96 96 Oxygen Delivery Method Room Air Positive well nourished, well developed and no apparent distress General Appearance ED: well developed HEENT Reports normocephalic and head/scalp atraumatic Mouth ED: Yes moist mucous membranes normal Eyes PERRL and EOMs intact bilaterally Neck full ROM and supple Chest Wall inspection of chest normal Resp normal respiratory effort Resp Narrative: Inspiratory and expiratory wheezes to all lung mead bilaterally. Cardio regular rate and regular rhythm GI soft to palpation, non-tender, non-distended and no masses Back/Spine normal ROM and normal to inspection Extremity normal to inspection and full ROM Neuro oriented x3, CN's II-XII intact bilaterally, moves all extremities, no focal motor deficits and no sensory deficits noted Sensorium / Orientation: awake and alert Psych mental status grossly normal and thought process normal Skin no rashes or lesions noted and no wounds <Dr. Juan Barahona MD - Last Filed: 12/11/22 16:53> Physical Exam Const Vital Signs: 12/11/22 15:07 12/11/22 15:25 12/11/22 15:26 Temperature 97.2 F L Temperature Source Temporal Pulse Rate 108 H 104 H Respiratory Rate 24 H 11 L Respiratory Effort Short of Breath Labored Respiratory Depth Normal Respiratory Pattern Tachypnea Blood Pressure 92/67 Blood Pressure Mean 75 Pulse Ox 97 95 Oxygen Delivery Method Room Air Room Air Room Air 12/11/22 15:27 12/11/22 15:42 12/11/22 16:04 Temperature Temperature Source Pulse Rate 103 H 99 98 Respiratory Rate 13 14 22 H Respiratory Effort Respiratory Depth Respiratory Pattern Normal Blood Pressure 161/103 H Blood Pressure Mean 122 Pulse Ox 96 98 Oxygen Delivery Method Room Air Room Air 12/11/22 16:24 12/11/22 16:39 12/11/22 16:52 Temperature Temperature Source Pulse Rate 99 98 105 H Respiratory Rate 18 12 22 H Respiratory Effort Respiratory Depth Respiratory Pattern Normal Blood Pressure 175/115 H 182/92 H Blood Pressure Mean 135 Pulse Ox 96 96 Oxygen Delivery Method Room Air [facility] <DANIEL Cervantes - Last Filed: 12/11/22 17:10> [facility] Narrative Medical decision making narrative: Patient presenting due to shortness of breath that started this afternoon. She is well-appearing and nontoxic, she is little tachycardic upon initial arrival. She had inspiratory and expiratory wheezing to auscultation. I gave her prednisone, DuoNeb, and albuterol breathing treatments. On reexamination she reports improvement of her symptoms, her lungs sound less wheezy. She is no longer tachycardic. She was given an additional breathing treatment prior to discharge which did make her a little tachycardic again which can be attributed to the albuterol. I do not feel that patient's symptoms align with a PE, chest x-ray obtained and does not show any infiltrate, pneumothorax or other cardiopulmonary abnormality. She has been given a prescription for prednisone and an albuterol inhaler. Blood pressure was a little elevated, she is to follow-up with her PCP on this. She was discharged home in stable condition and is comfortable with plan. Radiography X-Ray: Read by ED Physician and Read by Radiologist Diagnostic Testing: Clinical Impression(s) from Imaging Studies Chest X-Ray 12/11/22 15:44 IMPRESSION: No acute disease Electronically Signed: Ismael Hernandez MD at 16:25 EDT , <Dr. Juan Barahona MD - Last Filed: 12/11/22 16:53> MDM Radiography Diagnostic Testing: Clinical Impression(s) from Imaging Studies Chest X-Ray 12/11/22 15:44 IMPRESSION: No acute disease Electronically Signed: Ismael Hernandez MD at 16:25 EDT Reading Location ID and State: [address] [place] [address] Tel , Service support , Treatment and Re-Evaluation :: I have personally performed a face to face assessment of the patient and have reviewed the ALEJANDRO Note. I performed a substantive portion of the visit including all aspects of the following. My veliz findings include: History: Patient complains of cough shortness of breath. She is wheezing. She has no history of lung disease but she was a smoker until about 2 and half years ago. She has had milder versions of this before but never been diagnosed with any chronic lung disease. She has no travel surgery or immobilization personal family history of DVT PE or hormone use. Never had DVT. No leg swelling. She is not having pain. She really does not have sputum production. She does have a dry cough. Exam: Patient awake alert. Although she is not hypoxic she is audibly wheezing. She has a dry nonproductive cough. Heart is regular. When I hear her rates about 95. Pulses are normal distally. Legs show no edema or cords or tender Medical Decision Making: Marked improvement with breathing treatment. She still has a little expiratory wheeze but now only with forced expiration so we will get her another treatment. We will start her on prednisone. My independent interpretation the patient's two-view chest x-ray shows no acute process and final reading is similar. Discharge Plan Triage Chief Complaint: Shortness of Breath ED Midlevel Provider: Nkechi Figueroa ED Provider: Juan Barahona Dx/Rx/DC Orders Clinical Impression: Bilateral wheezing, Shortness of breath Instructions: ED Dyspnea Prescriptions: New prednisone 20 mg tablet 40 mg PO DAILY 4 Days Qty: 8 0RF albuterol sulfate [Ventolin HFA] 90 mcg/actuation HFA aerosol inhaler 1 - 2 puff inhalation Q4H PRN PRN (Reason: Wheezing) 14 Days Qty: 1 0RF Primary Care Provider: Gatito Wooten Referrals: Gatito Wooten MD [Primary Care Provider] - 3-5 Days Activity Restrictions/Additional Instructions: Please follow-up with your PCP, return for any worsening of your symptoms. Disposition Disposition: Home, Self Care Discharge Date/Time: 12/11/22 16:53
[2022-12-11] MEDS: Albuterol 2.5 MG/3 ML VIAL.NEB. INHALATION ×2 (15:41→16:38)
[2022-12-11] MEDS: Ipratropium/Albuterol Sulfate 3 ML AMPUL.NEB INHALATION (15:41)
--- NOTE | 2022-12-11 15:44 | RAD_ITS ---
STUDY: X-RAY CHEST REASON FOR EXAM: Female, 32 years old. shortness of breath TECHNIQUE: Frontal and lateral views of the chest. COMPARISON: March 04, 2021 FINDINGS: The lungs are clear and expanded. There is no demonstrated pleural abnormality. Normal size heart. Normal mediastinum and gómez. Normal visualized pulmonary arteries. Normal visualized aortic arch and descending thoracic aorta. Mild remote compression fracture T12. Normal visualized ribs, clavicles, and shoulders. There is no demonstrated abnormality of the visualized soft tissue structures of the upper abdomen. RAD/Chest PA and Lateral IMPRESSION: No acute disease Electronically Signed: Ismael Hernandez MD at 16:25 EDT ,
[2022-12-11] MEDS: predniSONE 20 MG Tablet 60 MG PO (16:02)
== END 2022-12-11 16:53 | disposition home or self-care (01) ==
PROVIDERS: Emergency Provider Emergency Medicine; PCP Family Medicine; Visit Provider Emergency Medicine
DX: R06.02 Shortness of breath (principal); Z87.891 Personal history of nicotine dependence; R06.2 Wheezing; Z79.52 Long term (current) use of systemic steroids
CPT/HCPCS: 71046; 94640; 99283

== ENCOUNTER 2023-03-10 01:22 | Emergency (ER) | payer BC, SELFPAY ==
[2023-03-10 01:24] VITALS: BP 194/125; PULSE 109; RESP 24; TEMP 36.1; O2SAT 95; BMI 36.2
--- NOTE | 2023-03-10 01:27 | ED.VIS.DYS ---
HPI History of Present Illness Chief Complaint: Shortness of Breath PFSH PFSH Medical History Former smoker Kidney stones Home Medications NK 03/10/23 [History Last Taken Unknown] albuterol sulfate 90 mcg/actuation aerosol inhaler (Ventolin HFA) 2 puff inhalation Q4H PRN PRN Wheezing #8.5 grams 03/10/23 [Rx Last Taken Unknown] prednisone 20 mg tablet 20 mg PO DAILY #5 tabs 03/10/23 [Rx Last Taken Unknown] Allergy/AdvReac Type Severity Reaction Status Date / Time No Known Allergies Allergy Verified 12/11/22 15:06 Surgical History History of removal of ureteral stent S/P ureteral stent placement Social History Smoking Status: Former smoker EXAM Physical Exam Const Vital Signs: 03/10/23 01:24 03/10/23 01:26 03/10/23 01:46 Temperature 96.9 F L Temperature Source Temporal Pulse Rate 109 H 89 Respiratory Rate 24 H 16 Respiratory Effort Normal Non-Labored Respiratory Depth Normal Respiratory Pattern Normal Blood Pressure 194/125 H Blood Pressure Mean 148 Pulse Ox 95 Oxygen Delivery Method Room Air Room Air MDM MDM MDM Narrative Medical decision making narrative: HISTORY OF PRESENT ILLNESS: 32-year-old female presents with shortness of breath. Notes tightness and difficulty breathing that started just prior to arrival. The patient denies recent surgery in the last 4 weeks or immobilization in the last 3 days, denies previous diagnosis of DVT or PE, hemoptysis, unilateral leg swelling or malignancy with treatment the last 6 months or palliative. No estrogen use noted. REVIEW OF SYSTEMS: Pertinent positives: Shortness of breath Pertinent negatives: Chest pain, unilateral leg swelling, vomiting, fever PHYSICAL EXAM: Nursing triage notes reviewed, Vital signs reviewed Constitutional: please see mdm HENT: MMM Eyes: Pupils equal round and reactive to light, Extraocular muscles intact Neck: No stridor, no JVD, full neck ROM Lungs: Clear to auscultation, N diffuse expiratory wheezing, no rales. No increased work of breathing, no conversational dyspnea, no accessory muscle use, no nasal flaring. No respiratory distress noted Heart: Regular rate and rhythm, No murmurs, No rubs and No gallops, 2+ distal pulses (radial, femoral, posterior tibial) in all extremities Abdomen: Soft, there is no tenderness, rigidity, rebound or guarding, no obvious peritoneal signs, no palpable pulsatile abdominal masses, no auscultated abdominal bruit : No CVAT Extremities: No edema Neuro: No focal neurological deficits, cranial nerves II through XII intact, 5/5 strength in all extremities. Intact sensation to light touch in all extremities, 2+ reflexes bilateral patella tendons. Normal gait. No ataxia. Skin: No rash or lesions noted MEDICAL DECISION MAKING: Chief Complaint: Shortness of breath External records reviewed: Prior ED records reviewed: Seen in the ED in December 2022 for similar symptoms at that time had a negative chest x-ray. Was given breathing treatments with improvement. Factors affecting care: Kidney stone status post ureteral stent Social determinants of health: n remote history tobacco abuse History obtained from others: none Consults: none MDM Narrative: Patient is initially hypertensive, tachycardic and tachypneic she is not febrile she is not toxic she is saturating well on room air I considered the following differential diagnosis: Obstructive lung disease, RSV, COVID, flu a PE Patient's exam is consistent with obstructive lung disease. She was given albuterol, ipratropium and prednisone. On repeat exam there is complete resolution. I suspect patient suffering from asthma. Gave albuterol prescription, prednisone prescription and PCP follow-up. The patient and/or family, caregivers express understanding. The patient and/or family, caregivers agrees with the plan. Shared decision making: I will have a discussion with the patient and or visitors regarding risk/benefits of further testing or admission. They will be made aware of of the risk/benefits inherent in this decision they will be given the opportunity to voice understanding. Total critical care time today provided was at least 0 minutes. This excludes separately billable procedures. Critical care time (if documented) is secondary to the patient having high probability of clinically significant/life threatening deterioration in the patient's condition which required my urgent intervention. Impression: 1. Acute asthma attack Dispo: Discharge Discharge Plan Triage Chief Complaint: Shortness of Breath ED Provider: Stevie Freeman Dx/Rx/DC Orders Instructions: ED Asthma, Acute (Adult) Prescriptions: New albuterol sulfate [Ventolin HFA] 90 mcg/actuation HFA aerosol inhaler 2 puff inhalation Q4H PRN PRN (Reason: Wheezing) Qty: 8.5 0RF prednisone 20 mg tablet 20 mg PO DAILY Qty: 5 0RF No Action NK Primary Care Provider: Gatito Wooten Referrals: Gatito Wooten MD [Primary Care Provider] - Activity Restrictions/Additional Instructions: Thank you for trusting us with your care today! Please take prednisone as prescribed. please use albuterol as prescribed Please return to the emergency department if your symptoms change or worsen. Please follow with your primary care physician for further outpatient evaluation and management. Disposition Disposition: Home, Self Care
[2023-03-10] MEDS: Ipratropium/Albuterol Sulfate 3 ML AMPUL.NEB INHALATION (01:45)
[2023-03-10 01:46] VITALS: PULSE 89; RESP 16
[2023-03-10] MEDS: predniSONE 20 MG Tablet 40 MG PO (01:57)
--- OUTSIDE RECORDS SUMMARY | 2023-03-10 02:13 | XMS RPT_ITS | CCD ---
Author Name Unknown Address [address] [place] [address] Organization [facility] Care Team Providers Care Senior Android Developer Name Role Phone Unavailable Primary Care Provider Unavailabl e Terence Stevens Primary Care Provider TERENEC STEVENS Primary Care Unavailabl e Medications Current Medications Medication Drug Class(es) Dates Sig (Normalized) Sig (Original) amoxicillin 875 mg / clavulanate 125 mg oral tablet (1 source) Penicillin-class Antibacterial Start: 08-27-2022 End: 09-03-2022 take 1 tablet by mouth twice daily amoxicillin-clav ulanic acid (AUGMENTIN) 875-125 mg per tablet Take 1 tablet by mouth twice daily for 7 days. 14 tablet 0 08/27/2022 09/03/2022 Active Completed/Discontinued Medications Medication Drug Class(es) Dates Sig (Normalized) Sig (Original) acetaminophen 325 mg oral tablet (2 sources) take 2 tablets by mouth every six hours as needed acetaminophen (TYLENOL) 325 mg tablet Take 650 mg by mouth every 6 hours as needed for Pain. 0 Active Problems Active Problems Problem Classification Problem Date Documented Da te Episodic/Chronic Esophageal disorders (2 sources) Gastroesophageal reflux disease; Translations: [Gastro-esophageal reflux disease without esophagitis] 07-11-2007 Chronic Headache; including migraine (4 sources) Migraine; Translations: [Migraine, unspecified, not intractable, without status migrainosus] 07-11-2007 Chronic Other ear and sense organ disorders (1 source) Bilateral earache; Translations: [Otalgia, bilateral] Episodic Otitis media and related conditions (1 source) Acute right otitis media; Translations: [Otitis media, unspecified, right ear] Episodic Past or Other Problems Problem Classification Problem Date Documented Date Episodic/Chronic Cancer of cervix (2 sources) Cervical intraepithelial neoplasia grade III with severe dysplasia; Translations: [Carcinoma in situ of cervix, unspecified] Onset: 07-14-2013 07-14-2013 Episodic Genitourinary symptoms and ill-defined conditions (2 sources) History of urinary tract infection; Translations: [Personal history of urinary (tract) infections] Onset: 06-19-2011 03-06-2021 Episodic Screening and history of mental health and substance abuse codes (2 sources) Stopped smoking; Translations: [Personal history of nicotine dependence] Onset: 06-19-2011 03-06-2021 Episodic Results Test Name Value Interpretation Reference Range Facil ity Vital Signs Date Time Vital Sign Value Performing Clinician Faci lity 08-27-2022 14:34-0400 Body temperature 99.3 [degF] Magui Ortiz CRIME SPECIALIST.[employer] Work Phone: [facility] 08-27-2022 14:34-0400 Body weight 100.06 kg Magui Ortiz CRIME SPECIALIST.[employer] Work Phone: [facility] 08-27-2022 14:34-0400 Diastolic blood pressure 120 mm[Hg] Magui Ortiz CRIME SPECIALIST.[employer] Work Phone: [facility] 08-27-2022 14:34-0400 Heart rate 115 /min Magui Ortiz CRIME SPECIALIST.[employer] Work Phone: [facility] 08-27-2022 14:34-0400 Respiratory rate 21 /min Magui Ortiz CRIME SPECIALIST.[employer] Work Phone: [facility] 08-27-2022 14:34-0400 SaO2% (BldA) [Mass fraction] 98 % Magui Ortiz CRIME SPECIALIST.[employer] Work Phone: [facility] 08-27-2022 14:34-0400 Systolic blood pressure 170 mm[Hg] Magui Ortiz CRIME SPECIALIST.[employer] Work Phone: [facility] 07-11-2021 14:15-0400 Body temperature 98.01 [degF] Penelope Mills CRIME SPECIALIST.[employer] Work Phone: [facility] 07-11-2021 14:15-0400 Body weight 101.06 kg Penelope Mills CRIME SPECIALIST.[employer] Work Phone: [facility] 07-11-2021 14:15-0400 Diastolic blood pressure 100 mm[Hg] Penelope Mills APRN.[employer] Work Phone: [facility] 07-11-2021 14:15-0400 Heart rate 98 /min Penelope Milsl APRN.[employer] Work Phone: [facility] 07-11-2021 14:15-0400 Respiratory rate 16 /min ePnelope Mills APRN.[employer] Work Phone: [facility] 07-11-2021 14:15-0400 SaO2% (BldA) [Mass fraction] 97 % Penelope Mills APRN.[employer] Work Phone: [facility] 07-11-2021 14:15-0400 Systolic blood pressure 150 mm[Hg] Penelope Mills APRN.[employer] Work Phone: [facility] Encounters Encounter Date Encounter Type Care Provider Facility Start: 08-27-2022 End: 08-27-2022 ambulatory [facility] Facility:[facility] Start: 08-27-2022 End: 08-27-2022 Patient encounter procedure Magui Ortiz APRN.[employer] M[employer] Work Phone: [facility] Plan of Treatment Date Care Activity Detail Author Start: 01-10-2024 PAP TESTING PAP TESTING [facility] Start: 11-09-2022 Influenza vaccination INFLUENZA (Sea son Ended) [facility] Start: 07-16-2022 HPV TESTING HPV TESTING [facility] Start: 03-11-2022 DEPRESSION ASSESSMENT DEPRESSION ASS ESSMENT [facility] Start: 12-12-2021 Urine microalbumin profile DTAP,TDAP,TD (7 - Td or Tdap) [facility] Start: 11-09-2021 Influenza vaccination INFLUENZA (Sea son Ended) [facility] Start: 11-08-2007 HEPATITIS C SCREENING HEPATITIS C SC KATEY [facility] Start: 2001 Adult depression screening assessment DEPRESSION SCREENING [facility] Start: 11-08-1995 PNEUMOCOCCAL (1 - PCV) PNEUMOCOCCAL (1 - PCV) [facility] Start: 1994 COVID-19 VACCINE (1) COVID-19 VACCIN E (1) [facility] Start: 05-08-1990 COVID-19 VACCINE (#1) COVID-19 VACCI NE (#1) [facility] Start: 1989 HEPATITIS B (1 of 3 - 3-dose series) HEPATITIS B (1 of 3 - 3-dose series) [facility] Immunizations Immunization Date Immunization Notes Care Provider Fahad nuñez 12-13-2011 tetanus toxoid, redu timoteo diphtheria toxoid, and acellular pertussis vaccine, adsorbed Penelope Mills APRN.[facility] Work Phone: [facility] 02-16-2008 human papilloma viru s vaccine, quadrivalent Penelope Mills CRIME SPECIALIST.[facility] Work Phone: [facility] 10-09-2007 human papilloma viru s vaccine, quadrivalent Penelope Mills CRIME SPECIALIST.[employer] Work Phone: [facility] Work Phone: 08-05-2007 human papilloma viru s vaccine, quadrivalent Penelope Mills CRIME SPECIALIST.[employer] Work Phone: [facility] Work Phone: 07-23-2002 measles, mumps and rubella virus vaccine Penelope Mills APRN.[facility] Work Phone: [facility] Work Phone: 07-23-2002 tetanus and diphther ia toxoids, adsorbed, preservative free, for adult use (2 Lf of tetanus toxoid and 2 Lf of diphtheria toxoid) Penelope Mills APRN.[employer] Work Phone: [facility] Work Phone: 11-19-1994 diphtheria, tetanus toxoids and acellular pertussis vaccine Penelope Mills APRN.[employer] Work Phone: [facility] Work Phone: 11-19-1994 poliovirus vaccine, inactivated Penelope Mills APRN.[employer] Work Phone: [facility] Work Phone: 05-22-1991 diphtheria, tetanus toxoids and acellular pertussis vaccine Penelope Mills APRN.[employer] Work Phone: [facility] Work Phone: 05-22-1991 haemophilus influenz ae type b vaccine, conjugate unspecified formulation Penelope Mills APRN.[employer] Work Phone: [facility] Work Phone: 05-22-1991 poliovirus vaccine, inactivated Penelope Mills CRIME SPECIALIST.[facility] Work Phone: [facility] Work Phone: 02-24-1991 measles, mumps and rubella virus vaccine Penelopeindra Mills APRN.[facility] Work Phone: [facility] Work Phone: 09-14-1990 haemophilus influenz ae type b vaccine, conjugate unspecified formulation Penelope Mills APRN.[facility] Work Phone: [facility] Work Phone: 06-30-1990 diphtheria, tetanus toxoids and acellular pertussis vaccine Penelope Mills APRN.[employer] Work Phone: [facility] Work Phone: 06-30-1990 haemophilus influenz ae type b vaccine, conjugate unspecified formulation Penelope Mills APRN.[facility] Work Phone: [facility] Work Phone: 03-17-1990 diphtheria, tetanus toxoids and acellular pertussis vaccine Penelope Mills APRN.[facility] Work Phone: [facility] Work Phone: 03-17-1990 poliovirus vaccine, inactivated Penelope Mills APRN.[employer] Work Phone: [facility] Work Phone: 01-22-1990 diphtheria, tetanus toxoids and acellular pertussis vaccine Penelope Mills APRN.[employer] Work Phone: [facility] Work Phone: 01-22-1990 poliovirus vaccine, inactivated Penelope James CRIME SPECIALIST.[facility] Work Phone: [facility] Work Phone: Payers Date Payer Category Payer Unknown [employer] PPO OOS [id number] 2016-Present [phone] [address] [place] [address] PPO [id number] 2016 Unknown [employer] PPO OOS [id number] 2016-Present [phone] [address] [place] [address] PPO [id number] 2016 Unknown [id number] Social History Date Type Detail Facility Start: 10-26-2019 End: 08-27-2022 Tobacco smoking status NHIS Smokes tobacco daily [facility] Work Phone: End: 05-23-2011 History of tobacco use Cigarette Smoker [facility] Work Phone: Start: 10-26-2019 End: 08-27-2022 Tobacco use and exposure Smokeless tobacco non-user [facility] Work Phone: Start: 07-11-2021 End: 08-27-2022 Alcohol intake Current non-drinker of alcohol (finding) [facility] Start: 10-26-2019 End: 08-27-2022 Tobacco Comment 4 cigarettes per day [facility] Start: 1989 Sex Assigned At Not on file [facility] Start: 07-01-2021 End: 07-11-2021 Exposure to SARS-CoV-2 (event) Not sure [facility] Progress note 08-27-2022 Note Date & Type Note Facility 08-27-2022 Note HNO ID: [id number] Author: Magui Ortiz APRN.[employer] Service: ? Author Type: Nurse Practitioner Type: Progress Notes Filed: 08/27/2022 5:12 PM Note Text: This note was created using NoteWriter. Jose Alvarenga is a 31 year old female. 31 year old female with PMH migraines and GERD presents for complaints of illness. Acute onset 2 to 3 days ago +right ear pain. +nasal congestion +sinus pressure +post nasal drainage. Denies cough. Denies SOB Or dyspnea Denies abdominal pain. Denies N/V/D Denies tobacco usage. Denies using homeopathic or OTC PLANTING MATERIAL REMOVER. The history is provided by the patient. No educational speech language clinician was used. Ear Pain This is a new problem. The current episode started in the past 7 days. The problem occurs constantly. Associated symptoms include congestion. Pertinent negatives include no abdominal pain, anorexia, arthralgias, change in bowel habit, chest pain, chills, coughing, diaphoresis, fatigue, fever, headaches, joint swelling, myalgias, nausea, neck pain, numbness, rash, sore throat, swollen glands, urinary symptoms, vertigo, visual change, vomiting or weakness. Nothing aggravates the symptoms. She has tried nothing for the symptoms. The treatment provided no relief. PAST MEDICAL HISTORY Diagnosis Date Abnormal Pap smear of cervix 2007 [facility]US Esophageal reflux occasional - hasn't needed meds Migraine, unspecified, without mention of intractable migraine without mention of status migrainosus 2002 without auras Personal history of urinary (tract) infection 05/2004 Tension headache Urinary calculus, unspecified Renal stones PAST SURGICAL HISTORY Procedure Laterality Date ERCP DESTRUCTION/LITHOTRIPSY CALCULI ANY METHOD 12/18/2016 NEPHROSTOGRAM PEDS Left 12/2016 LEEP PROCEDURE ([facility] [employer] DEPT)_*FL 2013 STENT,URETERAL,PERC PLS,4.8X24 2014 insertion and removal ALLERGIES Patient has no known allergies. MEDICATIONS fluticasone (FLONASE) 50 mcg/actuation nasal spray Use 2 Sprays in each nostril once daily. Rinse mouth after use. acetaminophen (TYLENOL) 325 mg tablet Take 650 mg by mouth every 6 hours as needed for Pain. amoxicillin-clavulanic acid (AUGMENTIN) 875-125 mg per tablet Take 1 tablet by mouth twice daily for 7 days. fluconazole (DIFLUCAN) 150 mg tablet Take 1 tablet by mouth once daily for 1 day. tamsulosin ER (FLOMAX) 0.4 mg Take 1 capsule by mouth once daily. At the start of flank pain to help with kidney stones (Patient not taking: Reported on 10/21/2020 ) folic acid 1 mg tablet Take 1 tablet by mouth once daily. (Patient not taking: Reported on 10/26/2019 ) FAMILY HISTORY Problem Relation Age of Onset Hypertension Mother Thyroid Mother Hyperthyorid. other (Lupus) Mother other (Depression) Mother Diabetes Maternal Grandmother Type 2 Colon Cancer Maternal Grandfather dx 60's, doing well now Diabetes Brother Type 1 - dx age 14 Breast Cancer Other pt not sure which relative Social History Tobacco Use Smoking status: Every Day Years: 6.00 Types: Cigarettes Last attempt to quit: 05/23/2011 Years since quittin.2 Smokeless tobacco: Never Tobacco comments: 4 cigarettes per day Vaping Use Vaping Use: Never used Substance Use Topics Alcohol use: No Drug use: No Review of Systems Constitutional: Negative for chills, diaphoresis, fatigue and fever. HENT: Positive for congestion, ear pain and sneezing. Negative for sore throat. Eyes: Negative for photophobia, pain, discharge, redness, itching and visual disturbance. Respiratory: Negative for apnea, cough, choking and chest tightness. Cardiovascular: Negative for chest pain and leg swelling. Gastrointestinal: Negative for abdominal pain, anorexia, change in bowel habit, nausea and vomiting. Musculoskeletal: Negative for arthralgias, joint swelling, myalgias and neck pain. Skin: Negative for color change, pallor and rash. Allergic/Immunologic: Negative for environmental allergies, food allergies and immunocompromised state. Neurological: Negative for dizziness, vertigo, facial asymmetry, weakness, numbness and headaches. Hematological: Negative for adenopathy. Does not bruise/bleed easily. Psychiatric/Behavioral: Negative for agitation and behavioral problems. Objective BP 170/120 Pulse 115 Temp 37.4 ?C (99.3 ?F) Resp 21 Wt 100.1 kg (220 lb 9.6 oz) LMP 07/03/2021 SpO2 98% BMI 35.61 kg/m? Physical Exam Vitals and nursing note reviewed. Constitutional: General: She is not in acute distress. Appearance: Normal appearance. She is normal weight. She is not ill-appearing, toxic-appearing or diaphoretic. HENT: Head: Normocephalic and atraumatic. Right Ear: Ear canal and external ear normal. Left Ear: Ear canal and external ear normal. Ears: Comments: Right TM erythematous and bulging. Nose: Nose normal. No congestion or rhinorrhea. Mouth/Throat: Mouth: Mucous membranes are moist. (more content not included)... [facility] History of Present illness Narrative 08-27-2022 Magui Ortiz, TORREY.[facility] - 08/27/2022 2:43 PM EDT Note Date & Type Note Facility 08-27-2022 History of Presen t illness Narrative This note was created using Hightower. Subjective Eileen Alvarenga is a 31 year old female. 31 year old female with PMH migraines and GERD presents for complaints of illness. Acute onset 2 to 3 days ago +right ear pain. +nasal congestion +sinus pressure +post nasal drainage. Denies cough. Denies SOB Or dyspnea Denies abdominal pain. Denies N/V/D Denies tobacco usage. Denies using homeopathic or OTC PLANTING MATERIAL REMOVER. The history is provided by the patient. No educational speech language clinician was used. Ear Pain This is a new problem. The current episode started in the past 7 days. The problem occurs constantly. Associated symptoms include congestion. Pertinent negatives include no abdominal pain, anorexia, arthralgias, change in bowel habit, chest pain, chills, coughing, diaphoresis, fatigue, fever, headaches, joint swelling, myalgias, nausea, neck pain, numbness, rash, sore throat, swollen glands, urinary symptoms, vertigo, visual change, vomiting or weakness. Nothing aggravates the symptoms. She has tried nothing for the symptoms. The treatment provided no relief. PAST MEDICAL HISTORY Diagnosis Date Abnormal Pap smear of cervix 2007 [facility] Esophageal reflux occasional - hasn't needed meds Migraine, unspecified, without mention of intractable migraine without mention of status migrainosus 2002 without auras Personal history of urinary (tract) infection 05/2004 Tension headache Urinary calculus, unspecified Renal stones PAST SURGICAL HISTORY Procedure Laterality Date ERCP DESTRUCTION/LITHOTRIPSY CALCULI ANY METHOD 12/18/2016 NEPHROSTOGRAM PEDS Left 12/2016 LEEP PROCEDURE ([facility] [employer] DE[facility])_*FL 2014 STENT,URETERAL,PERC PLS,4.8X24 2014 insertion and removal ALLERGIES Patient has no known allergies. MEDICATIONS fluticasone (FLONASE) 50 mcg/actuation nasal spray Use 2 Sprays in each nostril once daily. Rinse mouth after use. acetaminophen (TYLENOL) 325 mg tablet Take 650 mg by mouth every 6 hours as needed for Pain. amoxicillin-clavulanic acid (AUGMENTIN) 875-125 mg per tablet Take 1 tablet by mouth twice daily for 7 days. fluconazole (DIFLUCAN) 150 mg tablet Take 1 tablet by mouth once daily for 1 day. tamsulosin ER (FLOMAX) 0.4 mg Take 1 capsule by mouth once daily. At the start of flank pain to help with kidney stones (Patient not taking: Reported on 10/21/2020 ) folic acid 1 mg tablet Take 1 tablet by mouth once daily. (Patient not taking: Reported on 10/26/2019 ) FAMILY HISTORY Problem Relation Age of Onset Hypertension Mother Thyroid Mother Hyperthyorid. other (Lupus) Mother other (Depression) Mother Diabetes Maternal Grandmother Type 2 Colon Cancer Maternal Grandfather dx 60's, doing well now Diabetes Brother Type 1 - dx age 14 Breast Cancer Other pt not sure which relative Social History Tobacco Use Smoking status: Every Day Years: 6.00 Types: Cigarettes Last attempt to quit: 05/23/2011 Years since quittin.2 Smokeless tobacco: Never Tobacco comments: 4 cigarettes per day Vaping Use Vaping Use: Never used Substance Use Topics Alcohol use: No Drug use: No Review of Systems Constitutional: Negative for chills, diaphoresis, fatigue and fever. HENT: Positive for congestion, ear pain and sneezing. Negative for sore throat. Eyes: Negative for photophobia, pain, discharge, redness, itching and visual disturbance. Respiratory: Negative for apnea, cough, choking and chest tightness. Cardiovascular: Negative for chest pain and leg swelling. Gastrointestinal: Negative for abdominal pain, anorexia, change in bowel habit, nausea and vomiting. Musculoskeletal: Negative for arthralgias, joint swelling, myalgias and neck pain. Skin: Negative for color change, pallor and rash. Allergic/Immunologic: Negative for environmental allergies, food allergies and immunocompromised state. Neurological: Negative for dizziness, vertigo, facial asymmetry, weakness, numbness and headaches. Hematological: Negative for adenopathy. Does not bruise/bleed easily. Psychiatric/Behavioral: Negative for agitation and behavioral problems. Objective BP 170/120 Pulse 115 Temp 37.4 C (99.3 F) Resp 21 Wt 100.1 kg (220 lb 9.6 oz) LMP 07/03/2021 SpO2 98% BMI 35.61 kg/m Physical Exam Vitals and nursing note reviewed. Constitutional: General: She is not in acute distress. Appearance: Normal appearance. She is normal weight. She is not ill-appearing, toxic-appearing or diaphoretic. HENT: Head: Normocephalic and atraumatic. Right Ear: Ear canal and external ear normal. Left Ear: Ear canal and external ear normal. Ears: Comments: Right TM erythematous and bulging. Nose: Nose normal. No congestion or rhinorrhea. Mouth/Throat: Mouth: Mucous membranes are moist. Pharynx: No oropharyngeal exudate or posterior oropharyngeal erythema. Eyes: General: Right eye: No discharge. Left eye: No discharge. Extraocular Movements: Extraocular movements intact. Conjunctiva/sclera: Conjunctivae normal. Pupils: Pupils are equal, round, and reactive to light. Cardiovascular: Rate and Rhythm: Normal rate and regular rhythm. Pulses: Normal pulses. Heart sounds: Normal heart sounds. No murmur heard. No friction rub. Pulmonary: Effort: Pulmonary effort is normal. No respiratory distress. Breath sounds: Normal breath sounds. No stridor. No wheezing, rhonchi or rales. Chest: Chest wall: No tenderness. Abdominal: General: Abdomen is flat. There is no distension. Palpations: Abdomen is soft. There is no mass. Tenderness: There is no abdominal tenderness. There is no right CVA tenderness, left CVA tenderness, guarding or rebound. Hernia: No hernia is present. Musculoskeletal: General: No swelling, tenderness, deformity or signs of injury. Normal range of motion. Cervical back: Normal range of motion and neck supple. No rigidity. Right lower leg: No edema. Left lower leg: No edema. Lymphadenopathy: Cervical: No cervical adenopathy. Skin: General: Skin is warm and dry. Capillary Refill: Capillary refill takes less than 2 seconds. Coloration: Skin is not jaundiced or pale. Findings: No bruising, erythema, lesion or rash. Neurological: General: No focal deficit present. Mental Status: She is alert and oriented to person, place, and time. Cranial Nerves: No cranial nerve deficit. Sensory: No sensory deficit. Motor: No weakness. Coordination: Coordination normal. Gait: Gait normal. Psychiatric: Mood and Affect: Mood normal. Behavior: Behavior normal. Thought Content: Thought content normal. Judgment: Judgment normal. Assessment and Plan ASSESSMENT/PLAN: 1. Acute otitis media, right - ICD9: 382.9, ICD10: H66.91 - Will begin treatment with as per antibiotic as written, see orders - The patient should also be given OTC cough and cold meds as needed, warm salt water gargles, throat lozenges and/or OTC throat spray as needed, and nasal saline gtts and suction prn for the first 5-7 days of treatment. - Supportive care with plenty of fluids, rest, and analgesia prn. - Follow up in 3-5 days if symptoms persist or worsen. Magui Ortiz APRN.[employer] documented in this encounter [facility] History of Present illness Narrative 07-11-2021 Penelope Mills APRN.CNP - 07/11/2021 2:25 PM EDT Note Date & Type Note Facility 07-11-2021 History of Presen t illness Narrative CC: ear pain for 1 day. HPI: Eileen Alvarenga is a 30 year old female who presents to the office with complaint of ear symptoms for the past day. Symptoms are worsening Associated symptoms includes ear pain and ear pressure . Denies nausea, vomiting and diarrhea. Treatments tried include nothing so far. with no relief of symptoms. Sick contacts: unknown. History of asthma, frequent episodes of bronchitis, chronic bronchitis, bronchiectasis or COPD: No Smoker: No Seasonal/environmental allergies: No The ROS is otherwise negative. The patient's pmh, medications, allergies, and past visits are reviewed. PHYSICAL EXAM: BP 150/100 Pulse 98 Temp 36.7 C (98 F) Resp 16 Wt 101.1 kg (222 lb 12.8 oz) LMP 07/03/2021 SpO2 97% BMI 35.96 kg/m General appearance: alert, cooperative, pleasant, in no acute distress Head: Normocephalic Eyes: EOM's intact, conjunctiva pink and moist, no icterus, sclera white, non-injected Ears: Right ear: External ear/canal- Normal, TM - clear with good landmarks. Left ear: External ear/canal- Normal, TM - clear with good landmarks Oropharynx:moist without lesions, No erythema, exudates or tonsillar hypertrophy. Heart: Negative. RRR without obvious murmur, gallop, or rubs. No ectopy. Lungs: clear to auscultation, without rales or wheeze, good air exchange PAST MEDICAL HISTORY Diagnosis Date Abnormal Pap smear of cervix 2007 [facility] Esophageal reflux occasional - hasn't needed meds Migraine, unspecified, without mention of intractable migraine without mention of status migrainosus 2002 without auras Personal history of urinary (tract) infection 05/2004 Tension headache Urinary calculus, unspecified Renal stones PAST SURGICAL HISTORY Procedure Laterality Date ERCP DESTRUCTION/LITHOTRIPSY CALCULI ANY METHOD 12/18/2016 NEPHROSTOGRAM PEDS Left 12/2016 LEEP PROCEDURE ([employer] DEPT)_*[place] 2013 STENT,URETERAL,PERC PLS,4.8X24 2014 insertion and removal ALLERGIES Patient has no known allergies. MEDICATIONS acetaminophen (TYLENOL) 325 mg tablet Take 650 mg by mouth every 6 hours as needed for Pain. fluticasone (FLONASE) 50 mcg/actuation nasal spray Use 2 Sprays in each nostril once daily. Rinse mouth after use. tamsulosin ER (FLOMAX) 0.4 mg Take 1 capsule by mouth once daily. At the start of flank pain to help with kidney stones folic acid 1 mg tablet Take 1 tablet by mouth once daily. FAMILY HISTORY Problem Relation Age of Onset Hypertension Mother Thyroid Mother Hyperthyorid. other (Lupus) Mother other (Depression) Mother Diabetes Maternal Grandmother Type 2 Colon Cancer Maternal Grandfather dx 60's, doing well now Diabetes Brother Type 1 - dx age 14 Breast Cancer Other pt not sure which relative Social History Tobacco Use Smoking status: Current Every Day Smoker Years: 6.00 Types: Cigarettes Last attempt to quit: 05/23/2011 Years since quittin.1 Smokeless tobacco: Never Used Tobacco comment: 4 cigarettes per day Vaping Use Vaping Use: Never used Substance Use Topics Alcohol use: No Drug use: No ASSESSMENT/PLAN: 1. Otalgia of both ears - ICD9: 388.70, ICD10: H92.03 Flonase nasal spray ordered. Instructed to follow up with her PCP for blood pressure. Prescription instructions reviewed with patient as applicable. Potential red flag symptoms discussed with the patient. Reviewed appropriate action plan to take if red flag symptoms occur. Patient agreeable to treatment plan. Penelope Mills APRN.CINDY documented in this encounter [facility] History of Past illness Narrative 07-08-2013 Note Date & Type Note Facility documented as of this encounter (statuses as of 07/11/2021) [facility] History of Past illness Narrative 07-08-2013 Note Date & Type Note Facility documented as of this encounter (statuses as of 08/28/2022) [facility] Evaluation note Note Date & Type Note Facility documented in this encounter [facility] Evaluation note Note Date & Type Note Facility documented in this encounter [facility] Summary Purpose Family History No Family History Records Found Advance Directives No Advanced Directives Records Found Additional Source Comments Source Comments (unrecognize d section and content) In the event this informatio n is protected by the Federal Confidentiality of Alcohol and Drug Abuse Patient Records regulations: The Federal rules restrict any use of the information to criminally investigate or prosecute any alcohol or drug abuse patient[facility] event this information is protected by the Federal Confidentiality of Alcohol and Drug Abuse Patient Records regulations: The Federal rules restrict any use of the information to criminally investigate or prosecute any alcohol or drug abuse patient.[facility] Reason for Visit (unrecogniz ed section and content) Reason Comments Ear Pain Right ear pain, sinu s, congestion x 3 days Care Teams (unrecognized sec tion and content) INFORMATION SOURCE (unrecogn ized section and content) FOR RECORDS PERTAINING TO PATIENTS WHO ARE OR HAVE BEEN ENROLLED IN A CHEMICAL DEPENDENCY/SUBSTANCEABUSE PROGRAM, SOME INFORMATION MAY BE OMITTED. This clinical summary was aggregated from multiple sources. Caution should be exercised in using it in the provision of clinical care. This summary normalizes information from multiple sources, and as a consequence, information in this document may materially change the coding, format and clinical context of patient data. In addition, data may be omitted in some cases. CLINICAL DECISIONS SHOULD BE BASED ON THE PRIMARY CLINICAL RECORDS. [email or web address] [facility]. provides no warranty or guarantee of the accuracy or completeness of information in this document.
[2023-03-10] MEDS: Albuterol Sulfate 8 gm Inhaler (60 puffs) 2 PUFF INHALATION (03:16)
== END 2023-03-10 03:21 | disposition home or self-care (01) ==
PROVIDERS: Emergency Provider Emergency Medicine; PCP Family Medicine; Visit Provider Emergency Medicine
DX: J45.901 Unspecified asthma with (acute) exacerbation (principal); Z87.891 Personal history of nicotine dependence; N20.0 Calculus of kidney
CPT/HCPCS: 94640; 99282

== ENCOUNTER → 2023-04-18 | Outpatient (CLI) | payer BC, SELFPAY ==
--- NOTE | 2023-04-18 15:58 | RAD_ITS ---
STUDY: X-RAY CHEST REASON FOR EXAM: Female, 32 years old. early onset hypertension TECHNIQUE: PA and lateral views of the chest. COMPARISON: 12/11/2022. FINDINGS: The lungs are clear and expanded. There is no demonstrated pleural abnormality. Normal size heart. Normal mediastinum and gómez. Normal visualized pulmonary arteries. Normal visualized aortic arch and descending thoracic aorta. There are diffuse degenerative changes of the visualized thoracic spine. Normal visualized ribs, clavicles, and shoulders. There is no demonstrated abnormality of the visualized soft tissue structures of the upper abdomen. RAD/Chest PA and Lateral IMPRESSION: No acute cardiopulmonary disease. Electronically Signed: Jacque Brush MD at 2:59 EST ,
[2023-04-18 16:00] LABS: Bacteria 0 SEEN /hpf (None Seen); Mucous, Urine 0 SEEN /hpf (<or=2+); White Blood Cells 0 SEEN /hpf (0-5)
[2023-04-18 17:35] LABS: Absolute Lymphocyte Count 2.91 X10^3/uL (0.83-4.51); Absolute Neutrophil Count 4.8 X10^3/uL (2.0-7.7); Basophil# 0.12 X10^3/uL; Basophil% 1.3 % (0-1); Eosinophil# 0.64 X10^3/uL; Eosinophils% 7.1 % (0-5); Lymphocyte # 2.91 X10^3/ul (0.83-4.51); Lymphocyte % 32.1 % (19-41); Mean Corp Hgb Conc 33.3 g/dL (32-36); Mean Corpuscular Hgb 29.1 pg (27.0-32.0); Mean Corpuscular Volume 87.3 fL (81-99); Mean Platelet Vol. 10.1 fl (6.2-12.0); Monocyte# 0.54 X10^3/uL; NRBC Flagged by Analyzer 0 % (0-5); Neutrophil # 4.83 X10^3/uL (2.7-7.7); Neutrophil % 53.3 % (47-70); Platelet Count 284 K/mm3 (150-450); RBC Distribution Width CV 11.7 % (11.6-14.6); RBC Distribution Width SD 37.6 fl (35.1-43.9); Red Blood Count 4.81 M/mm3 (4.2-5.4); White Blood Count 9.1 K/mm3 (4.4-11.0)
[2023-04-18 18:02] LABS: Color, Urine Yellow (Yellow); Glucose, Dipstick Normal (Normal); Ketone-Dipstick 5 mg/dl (Negative); Leukocyte Esterase-Dipstick Negative /ul (Negative); Nitrite-Dipstick Negative (Negative); Occult Blood-Urine 25 /ul (Negative); Protein-Dipstick 15 mg/dl (Negative); Urine Bilirubin Dipstick Negative (Negative); Urine Clarity Clear (Clear); Urine Urobilinogen 1 mg/dl (Normal)
[2023-04-18 18:15] LABS: ALB/GLOB Ratio 1.3 RATIO (0.9-2.4); AST(SGOT) 16 U/L (15-37); Alanine Aminotransfer ALT/SGPT 28 U/L (13-56); Albumin, Serum 4.2 g/dL (3.2-5.0); Alkaline Phosphatase 97 U/L (45-117); Anion Gap 6 (5-15); BUN 15 mg/dL (7-18); BUN/Creat Ratio 19.5 RATIO (10-20); Calcium,Total 9.3 mg/dL (8.5-10.1); Chloride 105 mmol/L (98-107); Cholesterol 187 mg/dL (200); Creatinine, Serum 0.77 mg/dL (0.55-1.02); EST Glomerular Filtration Rate 91 mL/min (>60); Est Glom Filt Rate - Afr Amer 111 mL/min (>60); Globulin 3.3 g/dL (2.2-4.2); Glucose 78 mg/dL (74-106); High Density Lipoprotein 41 mg/dL; Potassium 3.5 mmol/L (3.5-5.1); Protein, Total 7.5 g/dL (6.4-8.2); Sodium Level 138 mmol/L (136-145); Thyroid Stim Hormone (TSH) 0.76 uIU/mL (0.358-3.74); Triglycerides 88 mg/dL; Very Low Density Lipoprotein 18 mg/dL (5-40)
[2023-04-18 18:53] LABS: Red Blood Cells-Urine 5-10 SEEN /hpf (0-5); Squamous Epithelial Cells - UA 0-5 SEEN /hpf (5-10)
== END | disposition home or self-care (01) ==
LOC: MTLAB 15:58
PROVIDERS: PCP Family Medicine; Referring Provider Family Medicine; Visit Provider Family Medicine
DX: I10 Essential (primary) hypertension (principal)
CPT/HCPCS: 36415; 71046; 80053; 80061; 81001; 84443; 85025

== ENCOUNTER → 2023-04-30 | Outpatient (CLI) | payer BC, SELFPAY ==
--- NOTE | 2023-04-30 15:20 | US_ITS ---
HISTORY: early onset HTN. TECHNIQUE: Oh scale and color doppler images were obtained of the kidneys. 66 images. COMPARISON: CT 11/21/2021. FINDINGS: RIGHT KIDNEY: 10.2 cm in length with a cortical thickness of 1 cm. Contour and echogenicity unremarkable. No hydronephrosis. No gross renal mass demonstrated. LEFT KIDNEY: 10.5 cm in length with a cortical thickness of 1.3 cm. Mild upper pole lobulation and scarring again seen. Echogenicity unremarkable. No hydronephrosis. No gross renal mass demonstrated. URINARY BLADDER: Unremarkable at 694 cc with a wall thickness of 3 mm. Bilateral ureteral jets visualized. US/Kidney and Bladder IMPRESSION: Mild left renal scarring. Otherwise unremarkable examination of the kidneys. Electronically Signed: Romina Gamble MD at 8:56 EST ,
== END | disposition home or self-care (01) ==
PROVIDERS: PCP Family Medicine; Referring Provider Family Medicine; Visit Provider Family Medicine
DX: I10 Essential (primary) hypertension (principal)
CPT/HCPCS: 76770

== ENCOUNTER → 2023-05-07 | Outpatient (CLI) | payer BC, SELFPAY ==
--- NOTE | 2023-05-07 08:53 | RDU_ITS ---
Reason For Study: Early onset HTN Right Renal Artery Left Renal Artery Right renal artery ostium 88/28.4 Left renal artery ostium 118/39.2 RSV/EDV. PSV/EDV. Right renal artery proximal Left renal artery proximal PSV/EDV 110.9/39.1 PSV/EDV. 107.7/41.9 . Right renal artery mid 104.2/40.9 Left renal artery mid 111.8/43.5 PSV/EDV. PSV/EDV . Right renal artery distal 100.4/37 Left renal artery distal 121.3/47.3 PSV/EDV. PSV/EDV. Right RAR 1.18. Left RAR 1.29. Right Renal Parenchyma Left Renal Parenchyma Upper Pole Medula 33.4/13.3 Left upper pole medulla 29.1/13.1 PSV/EDV. PSV/EDV . Right upper pole medulla EDR 0.4 . Left upper pole medulla EDR 0.5 . Right upper pole medulla R.I. Left upper pole medulla R.I. 0.55 . 0.60 . UP Cortex 25.2/12.6 PSV/EDV. Upper Nixon Cortx 27/11.5 PSV/EDV. Left upper pole cortex EDR 0.5 . Right upper pole cortex EDR 0.4 . Left upper pole cortex R.I. 0.50 . Right upper pole cortex R.I. 0.57 . Left lower Pole medulla 34/14.8 Right lower Pole medulla 35.2/13.3 PSV/EDV . PSV/EDV . Left lower pole medulla EDR 0.4 . Right lower pole medulla EDR 0.4 . Left lower pole medulla R.I. 0.57 . Right lower pole medulla R.I. Lower Pole Cortx 21.9/10.4 PSV/EDV. 0.62 . Left lower pole cortex EDR 0.5 . Lower Pole Cortex 26.1/10.6 Left lower pole cortex R.I. 0.53 . PSV/EDV. Left Renal Hilar Right lower pole cortex EDR 0.4 . LT Hilar avg 82.8/31 PSV/EDV . Right lower pole cortex R.I. 0.59 . Left hilar acceleration time 40 Right Renal Hilar m/sec. Right Hilar avg 74.2/29.2 PSV/EDV. Left Renal Dimensions Right hilar acceleration time 30 Left kidney size 10.37 cm . m/sec. Left cortical dimension 1.34 cm . Right Renal Dimensions Right kidney size 10.26 cm . Right cortical dimension 1.13 cm . Aorta Proximal abdominal aorta 1.33 x 1.33 cm . Proximal abdominal aorta peak systolic velocity is 94.3 cm/sec . Distal abdominal aorta 1.45 x 1.43 cm . Distal abdominal aorta peak systolic velocity is 76 cm/sec . VL/Renal Artery Duplex Ultrasound Interpretation Summary Right renal artery patent with normal velocities and no evidence of stenosis. Left renal artery patent with normal velocities and no evidence of stenosis. Right renal vein patent. Left renal vein patent. Right kidney normal in size. Left kidney normal in size. Ordering Physician: Gatito Wooten Referring Physician: Gatito Wooten Performed By: Rosemary May RVT
--- OUTSIDE RECORDS SUMMARY | 2023-05-07 09:21 | XMS RPT_ITS | CCD ---
Author Name Unknown Address [address] [place] [address] Organization [facility] Care Team Providers Care Money Counter Name Role Phone Unavailable Primary Care Provider UnavailTerence Olson Primary Care Provider [phone] TERENCE STEVENS Primary Care Unavailable TERENCE STEVENS Primary Care Unavailable Medications Current Medications Medication Drug Class(es) Dates [...] Date Time Vital Sign Value Performing Clinician Regina litmariam 08-27-2022 14:34-0400 Body temperature 99.3 [degF] Magui Ortiz FARMWORKER [employer] SOFTWARE ENGINEER Work Phone: [facility] 08-27-2022 14:34-0400 Body weight 100.06 kg Magui Ortiz APRN.[employer] SOFTWARE ENGINEER Work Phone: [facility] 08-27-2022 14:34-0400 Diastolic blood pressure 120 mm[Hg] Magui Ortiz FARMWORKER [employer] SOFTWARE ENGINEER Work Phone: [facility] 08-27-2022 14:34-0400 Heart rate 115 /min Magui Ortiz FARMWORKER [employer] SOFTWARE ENGINEER Work Phone: [facility] 08-27-2022 14:34-0400 Respiratory rate 21 /min Magui Ortiz FARMWORKER [employer].GIS SOFTWARE ENGINEER Work Phone: [facility] 08-27-2022 14:34-0400 SaO2% (BldA) [Mass fraction] 98 % Magui Ortiz FARMWORKER [employer].GIS SOFTWARE ENGINEER Work Phone: [facility] 08-27-2022 14:34-0400 Systolic blood pressure 170 mm[Hg] Magui Ortiz APRN.GIS SOFTWARE ENGINEER Work Phone: [facility] 07-11-2021 14:15-0400 Body temperature 98.01 [degF] Penelope Mills APRN.CNP Work Phone: [facility] 07-11-2021 14:15-0400 Body weight 101.06 kg Penelope Mills APRN.GIS SOFTWARE ENGINEER Work Phone: [facility] 07-11-2021 14:15-0400 Diastolic blood pressure 100 mm[Hg] Penelope Mills APRN.GIS SOFTWARE ENGINEER Work Phone: [facility] 07-11-2021 14:15-0400 Heart rate 98 /min Penelope Mills APRN.GIS SOFTWARE ENGINEER Work Phone: [facility] 07-11-2021 14:15-0400 Respiratory rate 16 /min Penelope Mills APRN.GIS SOFTWARE ENGINEER Work Phone: [facility] 07-11-2021 14:15-0400 SaO2% (BldA) [Mass fraction] 97 % Penelope Mills APRN.GIS SOFTWARE ENGINEER Work Phone: [facility] 07-11-2021 14:15-0400 Systolic blood pressure 150 mm[Hg] Penelope Mills APRN.GIS SOFTWARE ENGINEER Work Phone: [facility] Encounters Encounter Date Encounter Type Care Provider Facility Start: 04-11-2023 End: 04-11-[address] [facility] Facility:[facility] Start: 08-27-2022 End: 08-27-[address] [facility] Facility:[facility] Start: 08-27-2022 End: 08-27-2022 Patient encounter procedure Magui Ortiz TORREY.GIS SOFTWARE ENGINEER Work Phone: [facility] Plan of Treatment Date Care Activity Detail Author Start: 01-10-2024 PAP TESTING PAP TESTING [facility] Start: 11-09-2022 Influenza vaccination INFLUENZA (Sea son Ended) [facility] Start: 07-16-2022 HPV TESTING HPV TESTING [facility] Start: 03-11-2022 DEPRESSION ASSESSMENT DEPRESSION ASS ESSMENT [facility] Start: 12-12-2021 Urine microalbumin profile DTAP,TDAP,TD (7 - Td or Tdap) [facility] Start: 11-09-2021 Influenza vaccination INFLUENZA (Sea son Ended) [facility] Start: 11-08-2007 HEPATITIS C SCREENING HEPATITIS C SC KATEY [facility] Start: 2001 Adult depression screening assessment DEPRESSION SCREENING [facility] Start: 11-08-1995 PNEUMOCOCCAL (1 - PCV) PNEUMOCOCCAL (1 - PCV) [facility] Start: 1994 COVID-19 VACCINE (1) COVID-19 VACCIN E (1) [facility] Start: 05-08-1990 COVID-19 VACCINE (#1) COVID-19 VACCI NE (#1) [facility] Start: 1989 HEPATITIS B (1 of 3 - 3-dose series) HEPATITIS B (1 of 3 - 3-dose series) [facility] Immunizations Immunization Date Immunization Notes Care Provider Fahad nuñez 12-13-2011 tetanus toxoid, redu timoteo diphtheria toxoid, and acellular pertussis vaccine, adsorbed Penelope Mills APRN.GIS SOFTWARE ENGINEER Work Phone: [facility] 02-16-2008 human papilloma viru s vaccine, quadrivalent Penelope Mills APRN.GIS SOFTWARE ENGINEER Work Phone: [facility] 10-09-2007 human papilloma viru s vaccine, quadrivalent Penelope Mills FARMWORKER [employer].GIS SOFTWARE ENGINEER Work Phone: [facility] Work Phone: 08-05-2007 human papilloma viru s vaccine, quadrivalent Penelope Mills APRN.GIS SOFTWARE ENGINEER Work Phone: [facility] Work Phone: 07-23-2002 measles, mumps and rubella virus vaccine Penelope Mills APRN.GIS SOFTWARE ENGINEER Work Phone: [facility] Work Phone: 07-23-2002 tetanus and diphther ia toxoids, adsorbed, preservative free, for adult use (2 Lf of tetanus toxoid and 2 Lf of diphtheria toxoid) Penelope Mills APRN.GIS SOFTWARE ENGINEER Work Phone: [facility] Work Phone: 11-19-1994 diphtheria, tetanus toxoids and acellular pertussis vaccine Penelope Mills APRN.GIS SOFTWARE ENGINEER Work Phone: [facility] Work Phone: 11-19-1994 poliovirus vaccine, inactivated Penelope Mills APRN.GIS SOFTWARE ENGINEER Work Phone: [facility] Work Phone: 05-22-1991 diphtheria, tetanus toxoids and acellular pertussis vaccine Penelope Mills APRN.[facility] Work Phone: [facility] Work Phone: 05-22-1991 haemophilus influenz ae type b vaccine, conjugate unspecified formulation Penelope Mills APRN.[facility] Work Phone: [facility] Work Phone: 05-22-1991 poliovirus vaccine, inactivated Penelope Mills APRN.GIS SOFTWARE ENGINEER Work Phone: [facility] Work Phone: 02-24-1991 measles, mumps and rubella virus vaccine Penelope Mills APRN.[facility] Work Phone: [facility] Work Phone: 09-14-1990 haemophilus influenz ae type b vaccine, conjugate unspecified formulation Penelope Mills APRN.[facility] Work Phone: [facility] Work Phone: 06-30-1990 diphtheria, tetanus toxoids and acellular pertussis vaccine Penelope Mills APRN.[facility] Work Phone: [facility] Work Phone: 06-30-1990 haemophilus influenz ae type b vaccine, conjugate unspecified formulation Penelope Mills APRN.[facility] Work Phone: [facility] Work Phone: 03-17-1990 diphtheria, tetanus toxoids and acellular pertussis vaccine Penelope Mills APRN.[employer] SOFTWARE ENGINE[employer] Work Phone: [facility] Work Phone: 03-17-1990 poliovirus vaccine, inactivated Penelope Mills APRN.[facility] Work Phone: [facility] Work Phone: 01-22-1990 diphtheria, tetanus toxoids and acellular pertussis vaccine Penelope Mills APRN.[facility] Work Phone: [facility] Work Phone: 01-22-1990 poliovirus vaccine, inactivated Penelope Mills APRN.[employer] SOFTWARE ENGINE[employer] Work Phone: [facility] Work Phone: Payers Date Payer Category Payer Unknown [employer] PPO OOS [id number] 2016-Present [phone] [address] [place] [address] PPO [id number] 2016 Unknown [employer] PPO OOS [id number] 2016-Present [phone] [address] [place] [address] PPO [id number] 2016 Unknown [id number] Social History Date Type Detail Facility Start: 10-26-2019 End: 08-27-2022 Tobacco smoking status LAIS Smokes tobacco daily [facility] Work Phone: End: 05-23-2011 History of tobacco use Cigarette Smoker [facility] Work Phone: Start: 10-26-2019 End: 08-27-2022 Tobacco use and exposure Smokeless tobacco non-user [facility] Work Phone: Start: 07-11-2021 End: 08-27-2022 Alcohol intake Current non-drinker of alcohol (finding) [facility] Start: 10-26-2019 End: 08-27-2022 Tobacco Comment 4 cigarettes per day [facility] Start: 1989 Sex Assigned At Not on file C [facility] Start: 07-01-2021 End: 07-11-2021 Exposure to SARS-CoV-2 (event) Not sure [facility] Progress note 04-11-2023 Note Date & Type Note Facility 04-11-2023 Note HNO ID: [id number] Author: FREDDIE MONTERO APRN.GIS SOFTWARE ENGINEER Service: ? Author Type: Nurse Practitioner Type: Progress Notes Filed: 04/11/2023 15:57 Note Text: Subjective HPI HPI Eileen Alvarenga is a 32 year old female who presents today for CC of right ear pain. This started 4 days ago. Has tried otc medication for relief. Symptoms are worsened by nothing. Hx of sinus allergies/chronic. .Patient presents with: Ear Pain: R ear pain x4 days PAST MEDICAL HISTORY Diagnosis Date Abnormal Pap [...] 12/18/2016 NEPHROSTOGRAM PEDS Left 12/2016 LEEP PROCEDURE (COURT ASSISTANT DEPT)_*FL 2013 STENT,URETERAL,PERC PLS,4.8X24 2014 insertion and removal ALLERGIES Patient has no known allergies. MEDICATIONS fluticasone (FLONASE) 50 mcg/actuation nasal spray Use 2 Sprays in each nostril once daily. Rinse mouth after use. acetaminophen (TYLENOL) 325 mg tablet Take 650 mg by mouth every 6 hours as needed for Pain. predniSONE (DELTASONE) 10 mg tablet Take 4 tabs daily for 3 days, then 2 tabs daily for 3 days, then 1 tab daily for 3 days with food. fluticasone (FLONASE) 50 mcg/actuation nasal spray Use [...] Tobacco Use Smoking status: Every Day Years: 6 Types: Cigarettes Last attempt to quit: 05/23/2011 Years since quittin.8 Smokeless tobacco: Never Tobacco comments: 4 cigarettes per day Vaping Use Vaping Use: Never used Substance Use Topics Alcohol use: No Drug use: No Review of Systems Constitutional: Negative for fever. HENT: Positive for congestion and ear pain. Negative for ear discharge, nosebleeds and sore throat. Respiratory: Negative for cough, shortness of breath and wheezing. Musculoskeletal: Negative for neck pain. Skin: Negative for itching and rash. Objective Blood pressure (!) 167/127, pulse 86, temperature 36.9 ?C (98.5 ?F), resp. rate 18, weight 99.8 kg (220 lb), last menstrual period 07/03/2021, SpO2 98%. Physical Exam Constitutional: General: She is not in acute distress. Appearance: She is not toxic-appearing or diaphoretic. HENT: Head: Normocephalic and atraumatic. Right Ear: Hearing, tympanic membrane, ear canal and external ear normal. Left Ear: Hearing, ear canal and external ear normal. A middle ear effusion (clear, bubbles present.) is present. Pulmonary: Effort: Pulmonary effort is normal. No accessory muscle usage or respiratory distress. Lymphadenopathy: Cervical: No cervical adenopathy. Right cervical: No superficial cervical adenopathy. Left cervical: No superficial cervical adenopathy. Neurological: Mental Status: She is alert and oriented to person, place, and time. ASSESSMENT/PLAN: 1. ETD (Eustachian tube dysfunction), right - ICD9: 381.81, ICD10: H69.91 -use medication as prescribed -follow up if symptoms persist, worsen, change DO NOT TAKE PREDNISONE IF BLOOD PRESSURE REMAINS ELEVATED. - PREDNISONE 10 MG TABLET - FLUTICASONE PROPIONATE 50 MCG/ACTUATION NASAL SPRAY,SUSPENSION Patient reports bp is elevated when here, is low at home and low at pcp office. I advised to check bp when home and may take medication if in acceptable range. Freddie Montero APRN.GIS SOFTWARE ENGINEER [place] Progress note 08-27-2022 Note Date & Type Note Facility 08-27-2022 Note HNO ID: [id number] Author: Magui Ortiz APRN.GIS SOFTWARE ENGINEER Service: ? Author Type: Nurse Practitioner Type: Progress Notes Filed: 08/27/2022 5:12 PM Note Text: This note was created using [employer]. Jose Alvarenga is a 31 year old female. 31 year old female with PMH migraines and GERD presents for complaints of illness. Acute onset 2 to 3 days ago +right ear pain. +nasal congestion +sinus pressure +post nasal drainage. Denies cough. Denies SOB Or dyspnea Denies abdominal pain. Denies N/V/D Denies tobacco usage. Denies using homeopathic or OTC HARDWARE MANAGER. The history is provided by the patient. No historical interpreter was used. Ear Pain This is a [...] 12/18/2016 NEPHROSTOGRAM PEDS Left 12/2016 LEEP PROCEDURE (COURT ASSISTANT DEPT)_*FL 2013 STENT,URETERAL,PERC PLS,4.8X24 2014 insertion and [...] membranes are moist. (more content not included)... [place] History of Present illness Narrative 08-27-2022 Magui Ortiz APRN.[facility] - 08/27/2022 2:43 PM EDT Note Date & Type Note Facility 08-27-2022 History of Presen t illness Narrative This note was created using [employer]. Jose Alvarenga is a 31 year old female. 31 year old female with PMH migraines and GERD presents for complaints of illness. Acute onset 2 to 3 days ago +right ear pain. +nasal congestion +sinus pressure +post nasal drainage. Denies cough. Denies SOB Or dyspnea Denies abdominal pain. Denies N/V/D Denies tobacco usage. Denies using homeopathic or OTC HARDWARE MANAGER. The history is provided by the patient. No historical interpreter was used. Ear Pain This is a [...] 12/18/2016 NEPHROSTOGRAM PEDS Left 12/2016 LEEP PROCEDURE (COURT ASSISTANT DEPT)_*FL 2013 STENT,URETERAL,PERC PLS,4.8X24 2015 insertion and removal ALLERGIES Patient has no [...] if symptoms persist or worsen. Magui Ortiz APRN.CINDY documented in this encounter [facility] History of Present illness Narrative 07-11-2021 [...] 12/18/2016 NEPHROSTOGRAM PEDS Left 12/2016 LEEP PROCEDURE (COURT ASSISTANT DEPT)_*FL 2013 STENT,URETERAL,PERC PLS,4.8X24 2014 insertion and [...] Patient agreeable to treatment plan. Penelope Mills APRN.[employer] SOFTWARE ENGINE[employer] documented in this encounter [facility] History of Past illness Narrative 07-08-2013 Note Date & Type Note Facility documented as of this encounter (statuses as of 07/11/2021) [facility] History of Past illness Narrative 07-08-2013 Note Date & Type Note Facility documented as of this encounter (statuses as of 08/28/2022) [facility] Evaluation note Note Date & Type Note Facility documented in this encounter [facility] Evaluation note Note Date & Type Note Facility documented in this encounter [facility] Summary Purpose Family History No Family [...] or prosecute any alcohol or drug abuse patient.[facility] the event this information is protected by the Federal Confidentiality of Alcohol and Drug Abuse Patient Records regulations: The Federal rules restrict any use of the information to criminally investigate or prosecute any alcohol or drug abuse patient.[facility] Reason for Visit (unrecogniz ed section [...] BE BASED ON THE PRIMARY CLINICAL RECORDS. [facility]. provides no warranty or guarantee of the accuracy or completeness of information in this document.
== END | disposition home or self-care (01) ==
LOC: CVS 08:52
PROVIDERS: PCP Family Medicine; Referring Provider Family Medicine; Visit Provider Family Medicine
DX: I10 Essential (primary) hypertension (principal)
CPT/HCPCS: 93975

== ENCOUNTER → 2023-06-11 | Outpatient (CLI) | payer BC, SELFPAY ==
[2023-06-11 09:52] LABS: Mucous, Urine 0 SEEN /hpf (<or=2+); White Blood Cells 0 SEEN /hpf (0-5)
[2023-06-11 10:21] LABS: Color, Urine Yellow (Yellow); Glucose, Dipstick Normal (Normal); Ketone-Dipstick Negative (Negative); Leukocyte Esterase-Dipstick Negative /ul (Negative); Nitrite-Dipstick Negative (Negative); Occult Blood-Urine 25 /ul (Negative); Protein-Dipstick 15 mg/dl (Negative); Specific Gravity, Urine 1.015 (1.002-1.030); Urine Bilirubin Dipstick Negative (Negative); Urine Clarity Sl. Cloudy (Clear); Urine Urobilinogen Normal (Normal); Urine pH 6.5 (5.0 - 8.0)
[2023-06-11 10:48] LABS: Bacteria 1+ /hpf (None Seen); Red Blood Cells-Urine 0-5 SEEN /hpf (0-5); Squamous Epithelial Cells - UA 0-5 SEEN /hpf (5-10)
[2023-06-11 10:52] LABS: BUN 12 mg/dL (7-18); BUN/Creat Ratio 14.7 RATIO (10-20); Calcium,Total 9.1 mg/dL (8.5-10.1); Chloride 108 mmol/L (98-107); Creatinine, Serum 0.82 mg/dL (0.55-1.02); EST Glomerular Filtration Rate 85 mL/min (>60); Est Glom Filt Rate - Afr Amer 103 mL/min (>60); Glucose 103 mg/dL (74-106); Phosphorus 2.6 mg/dL (2.5-4.9); Potassium 4.1 mmol/L (3.5-5.1); Sodium Level 138 mmol/L (136-145)
== END | disposition home or self-care (01) ==
LOC: LAB 09:47
PROVIDERS: PCP Family Medicine; Referring Provider Internal Medicine Nephrology; Visit Provider Internal Medicine Nephrology
DX: N28.89 Other specified disorders of kidney and ureter (principal)
CPT/HCPCS: 36415; 80069; 81001

== ENCOUNTER → 2023-08-22 | Outpatient (CLI) | payer BC, SELFPAY ==
--- NOTE | 2023-08-22 | CYSPIN_PTH ---
PATIENT: TAZ CAMERON LOC: [facility] U#:[id number] AGE/SX: 32/F ROOM: RE08/22/[address]: Dr. Gatito Wooten MD : 1990 BED: DIS: 08/22/2023 SPEC #: [id number] RECD: 08/22/23 13:01 STATUS: DANIEL SANCHEZLee Ann #: [id number] ELISHA: 08/22/23 00:[address]: Gatito Wooten DEPT: CYTOLOGY RECD BY: Melisa Hurtado Tissues: Urine Procedures: Pap Stain (control) Special Stain Group II Cytospin Fluid HEADER OPERATION: Not noted PRE-OP DIAGNOSIS: Hematuria TISSUE SUBMITTED: Urine for cytology DIAGNOSIS CYTOLOGY Urine for cytology (cytospin): Atypical urothelial cells present. See comment. Lucretia 08/22/2023 COMMENT The Padmini System for urine cytology diagnostic categorization was used in the evaluation of this case. Atypical urothelial cells are present and suspicious for at least a low grade urothelial neoplasm, best fitting a Padmini System Category of . The specimen also contains an abundance of squamous epithelial cells and bacterial colonies. Clinical correlation is suggested. Case has been reviewed in consultation with Dr. Regan who concurs with the above diagnosis. [id number] CYTOLOGY STUDY Slides are reviewed. CYTOLOGY GROSS Received is 100 ml of hazy yellow fluid labeled with the patient's name and and designated per the requisition as urine. Submitted for cytology preparation. Mr 08/22/2023 TC:0 CPT: 83072
[2023-08-22 11:05] LABS: Cytology, Body Fluid / CSF SEE PATHOLOGY REPORT; Mucous, Urine 0 SEEN /hpf (<or=2+); Red Blood Cells-Urine 0 SEEN /hpf (0-5); White Blood Cells 0 SEEN /hpf (0-5)
[2023-08-22 12:10] LABS: Absolute Lymphocyte Count 2.44 X10^3/uL (0.83-4.51); Absolute Neutrophil Count 3.2 X10^3/uL (2.0-7.7); Basophil# 0.08 X10^3/uL; Basophil% 1.2 % (0-1); Eosinophils% 7.5 % (0-5); Hematocrit 40.6 % (37-47); Hemoglobin 13.5 g/dL (12.0-15.0); Lymphocyte # 2.44 X10^3/ul (0.83-4.51); Lymphocyte % 36.5 % (19-41); Mean Corp Hgb Conc 33.3 g/dL (32-36); Mean Corpuscular Hgb 29.5 pg (27.0-32.0); Mean Corpuscular Volume 88.6 fL (81-99); Mean Platelet Vol. 10.2 fl (6.2-12.0); Monocyte# 0.44 X10^3/uL; Monocyte% 6.6 % (0-10); NRBC Flagged by Analyzer 0 % (0-5); Neutrophil # 3.21 X10^3/uL (2.7-7.7); Neutrophil % 47.9 % (47-70); Platelet Count 296 K/mm3 (150-450); RBC Distribution Width CV 11.9 % (11.6-14.6); RBC Distribution Width SD 38.1 fl (35.1-43.9); Red Blood Count 4.58 M/mm3 (4.2-5.4); White Blood Count 6.7 K/mm3 (4.4-11.0)
[2023-08-22 12:31] LABS: Glucose, Dipstick Normal (Normal); Ketone-Dipstick Negative (Negative); Leukocyte Esterase-Dipstick Negative /ul (Negative); Nitrite-Dipstick Negative (Negative); Occult Blood-Urine Negative /ul (Negative); Protein-Dipstick Negative (Negative); Urine Bilirubin Dipstick Negative (Negative); Urine Urobilinogen Normal (Normal)
[2023-08-22 12:36] LABS: Color, Urine AMBER (Yellow); Urine Clarity Clear (Clear)
[2023-08-22 12:51] LABS: Bacteria 1+ /hpf (None Seen); Squamous Epithelial Cells - UA 0-5 SEEN /hpf (5-10)
[2023-08-22 13:00] LABS: ALB/GLOB Ratio 1.3 RATIO (0.9-2.4); AST(SGOT) 21 U/L (15-37); Alanine Aminotransfer ALT/SGPT 28 U/L (13-56); Albumin, Serum 4.1 g/dL (3.2-5.0); Alkaline Phosphatase 82 U/L (45-117); Anion Gap 7 (5-15); BUN 15 mg/dL (7-18); BUN/Creat Ratio 18.5 RATIO (10-20); Chloride 107 mmol/L (98-107); Creatinine, Serum 0.81 mg/dL (0.55-1.02); EST Glomerular Filtration Rate 86 mL/min (>60); Est Glom Filt Rate - Afr Amer 104 mL/min (>60); Globulin 3.2 g/dL (2.2-4.2); Glucose 90 mg/dL (74-106); Potassium 3.7 mmol/L (3.5-5.1); Protein, Total 7.3 g/dL (6.4-8.2); Sodium Level 137 mmol/L (136-145)
== END | disposition home or self-care (01) ==
LOC: MFPLAB 11:03
PROVIDERS: PCP Family Medicine; Visit Provider Family Medicine
DX: R31.9 Hematuria, unspecified (principal); I10 Essential (primary) hypertension
CPT/HCPCS: 36415; 80053; 81001; 85025; 87086; 87088; 88108; 88313

== ENCOUNTER → 2023-12-30 | Outpatient (CLI) | payer BC, SELFPAY ==
[2023-12-30 17:28] LABS: Albumin, Serum 4.2 g/dL (3.2-5.0); BUN 14 mg/dL (7-18); BUN/Creat Ratio 18.4 RATIO (10-20); Calcium,Total 9.4 mg/dL (8.5-10.1); Chloride 107 mmol/L (98-107); Creatinine, Serum 0.76 mg/dL (0.55-1.02); EST Glomerular Filtration Rate 93 mL/min (>60); Est Glom Filt Rate - Afr Amer 112 mL/min (>60); Glucose 93 mg/dL (74-106); Phosphorus 2.5 mg/dL (2.5-4.9); Potassium 3.6 mmol/L (3.5-5.1); Sodium Level 137 mmol/L (136-145)
== END | disposition home or self-care (01) ==
LOC: LAB 16:11
PROVIDERS: PCP Family Medicine; Referring Provider Internal Medicine Nephrology; Visit Provider Internal Medicine Nephrology
DX: N28.89 Other specified disorders of kidney and ureter (principal)
CPT/HCPCS: 36415; 80069

== ENCOUNTER → 2024-01-13 | Outpatient (CLI) | payer BC, SELFPAY | END | disposition home or self-care (01) | LOC: PSN 07:46 | PROVIDERS: PCP Family Medicine; Referring Provider Family Medicine; Visit Provider Family Medicine | DX: R05.3 Chronic cough (principal) | CPT/HCPCS: 94060; 94726; 94729 ==

== ENCOUNTER → 2024-01-31 | Outpatient (CLI) | payer BC, SELFPAY ==
--- NOTE | 2024-01-31 13:47 | RAD_ITS ---
STUDY: X-RAY CHEST REASON FOR EXAM: Female, 33 years old. Cough. TECHNIQUE: Frontal and lateral views of the chest on 3 images. COMPARISON: April 18, 2023 FINDINGS: The lungs are clear and expanded. There is no demonstrated pleural abnormality. Normal size heart. Normal mediastinum and gómez. Normal visualized pulmonary arteries. Normal visualized aortic arch and descending thoracic aorta. Normal visualized thoracic spine. Normal visualized ribs, clavicles, and shoulders. No abnormality of the visualized soft tissue structures of the upper abdomen. RAD/Chest PA and Lateral IMPRESSION: No interval change and no acute or active cardiopulmonary disease. Electronically Signed: Enmanuel Billingsley MD at 14:28 EST ,
[2024-02-02 08:08] LABS: Alpha Antitrypsin Serum 116 mg/dL (100-188)
== END | disposition home or self-care (01) ==
LOC: MTLAB 13:47
PROVIDERS: PCP Family Medicine; Referring Provider Family Medicine; Visit Provider Family Medicine
DX: J44.9 Chronic obstructive pulmonary disease, unspecified (principal); R11.10 Vomiting, unspecified; R05.9 Cough, unspecified
CPT/HCPCS: 36415; 71046; 82103

== ENCOUNTER → 2024-07-09 | Outpatient (CLI) | payer SELFPAY ==
[2024-07-14 10:09] LABS: HPV APTIMA, High Risk Negative (Negative)
[2024-07-15 07:59] LABS: HPV Reflexed? YES, CHARGE PATIENT
== END | disposition home or self-care (01) ==
PROVIDERS: PCP Family Medicine
DX: Z12.4 Encounter for screening for malignant neoplasm of cervix (principal)
CPT/HCPCS: 87624; 88175; G0145

== ENCOUNTER → 2024-09-18 | Outpatient (CLI) | payer BC, SELFPAY ==
--- NOTE | 2024-09-18 14:52 | RAD_ITS ---
PROCEDURE: NECK FOR SOFT TISSUE 09/18/2024 REASON FOR EXAM: CERVICAL RADICULOPATHY TECHNIQUE: NECK FOR SOFT TISSUE COMPARISON: None FINDINGS: The vertebral alignment is maintained without evidence of fracture. Straightened cervical lordosis is seen. C5-6 end plates osteophytes are seen. Reduced C5-6 and C6-7 disc spaces and facet arthropathy, rest Intervertebral disc spaces are normal. Marginal anterior osteophytes are seen. The paraspinal soft tissues appear normal. RAD/Neck for Soft Tissue IMPRESSION: C5-6 and C6-7 levels degenerative changes. Straightened cervical lordosis in keeping with muscle spasm. No evidence of cervical vertebral fracture. Reading Location: [facility]
== END | disposition home or self-care (01) ==
LOC: MTRAD 14:49
PROVIDERS: PCP Family Medicine; Referring Provider Family Medicine; Visit Provider Family Medicine
DX: M54.12 Radiculopathy, cervical region (principal)
CPT/HCPCS: 70360

== ENCOUNTER → 2024-10-28 | Outpatient (CLI) | payer BC, SELFPAY ==
--- NOTE | 2024-10-28 | FLU_PTH ---
PATIENT: TAZ CAMERON LOC: [facility] U#:[id number] AGE/SX: 33/F ROOM: RE10/28/[address]: Dr. Gatito Wooten MD : 1990 BED: DIS: 10/28/2024 SPEC #: [id number] RECD: 10/28/24 10:44 STATUS: DANIEL RELee Ann #: [id number] ELISHA: 10/28/24 00:[address]: Gatito Wooten DEPT: CYTOLOGY RECD BY: Tyler Milan Tissues: A - Urine Procedures: Special Stain Group II Cytospin Fluid HEADER OPERATION: Not noted PRE-OP DIAGNOSIS: Hematuria TISSUE SUBMITTED: A- Urine for cytology DIAGNOSIS CYTOLOGY A. Urine, cytology: * No malignant cells are identified CYTOLOGY STUDY Slides are reviewed. CYTOLOGY GROSS A. Received is 7.5 ml of [id number] fluid labeled with the patient's name and and designated per the requisition as urine. Submitted for cytology preparation. Mr 10/28/2024 CPT: 01126
[2024-10-28 10:46] LABS: Cytology, Body Fluid / CSF SEE PATHOLOGY REPORT; Mucous, Urine 0 SEEN /hpf (<or=2+); Red Blood Cells-Urine 0 SEEN /hpf (0-5)
[2024-10-28 12:13] LABS: Hematocrit 39.3 % (37-47); Hemoglobin 13.2 g/dL (12.0-15.0); Immature Granulocytes Count 0.040 X10^3/uL (0.0-0.0); Mean Corp Hgb Conc 33.6 g/dL (32-36); Mean Corpuscular Volume 89.5 fL (81-99); Mean Platelet Vol. 10.2 fl (6.2-12.0); NRBC Flagged by Analyzer 0 % (0-5); Platelet Count 319 K/mm3 (150-450); RBC Distribution Width CV 12.0 % (11.6-14.6); RBC Distribution Width SD 39.2 fl (35.1-43.9); Red Blood Count 4.39 M/mm3 (4.2-5.4); White Blood Count 7.8 K/mm3 (4.4-11.0)
[2024-10-28 12:19] LABS: Color, Urine Yellow (Yellow); Glucose, Dipstick Normal (Normal); Ketone-Dipstick Negative (Negative); Leukocyte Esterase-Dipstick Negative /ul (Negative); Nitrite-Dipstick Negative (Negative); Occult Blood-Urine Negative /ul (Negative); Protein-Dipstick 15 mg/dl (Negative); Specific Gravity, Urine 1.010 (1.002-1.030); Urine Bilirubin Dipstick Negative (Negative)
[2024-10-28 12:29] LABS: Squamous Epithelial Cells - UA 0-5 SEEN /hpf (5-10)
[2024-10-28 12:36] LABS: AST(SGOT) 16 U/L (<=31); Alanine Aminotransfer ALT/SGPT 21 U/L (<=34); Albumin, Serum 4.3 g/dL (3.5-5.0); Alkaline Phosphatase 71 U/L (35-104); Anion Gap 11 (5-15); BUN 12 mg/dL (4-19); BUN/Creat Ratio 15.1 RATIO (10-20); Calcium,Total 9.4 mg/dL (7.6-11.0); Carbon Dioxide 25.1 mmol/L (21.0-32.0); Chloride 103 mmol/L (98-108); Cholesterol 208 mg/dL (<=200); Globulin 2.6 g/dL (2.2-4.2); Glucose 86 mg/dL (70-99); Low Density Lipoprotein Calc. 135 mg/dL; Magnesium 2.0 mg/dL (1.5-2.2); Potassium 3.9 mmol/L (3.3-5.1); Triglycerides 128 mg/dL; Very Low Density Lipoprotein 26 mg/dL (5-40); cholesterol:hdl ratio screen 4.42
== END | disposition home or self-care (01) ==
LOC: MFPLAB 10:37
PROVIDERS: PCP Family Medicine; Referring Provider Family Medicine; Visit Provider Family Medicine
DX: I10 Essential (primary) hypertension (principal); F17.200 Nicotine dependence, unspecified, uncomplicated; R82.89 Other abnormal findings on cytological and histological examination of urine
CPT/HCPCS: 36415; 80053; 80061; 81001; 83735; 85025; 88108; 88305; 88313

== ENCOUNTER → 2024-11-02 | Outpatient (CLI) | payer BC, SELFPAY ==
--- NOTE | 2024-11-02 06:46 | MRI_ITS ---
PROCEDURE: SPINE CERVICAL (ROUTINE) 11/02/2024 REASON FOR EXAM: CERVICAL RADICULOPATHY TECHNIQUE: SPINE CERVICAL (ROUTINE) Multiplanar and multisequence images were obtained without IV contrast administration. COMPARISON: Two-view cervical spine of 09/18/2024. FINDINGS: Vertebrae: Cervical vertebral body heights are preserved. Bone marrow signal is unremarkable. Alignment: Normal. No spondylolisthesis. Spinal Cord: At the C5-C6 level of spinal canal narrowing, subtle cervical cord signal changes are seen, consistent with chronic cord contusion. C2-3: Unremarkable C3-4: Mild bilateral uncovertebral joint hypertrophy is seen. A very mild disc bulge is noted. Mild spinal canal narrowing is also present. No significant neural foraminal narrowing is seen. C4-5: Minimal uncovertebral joint hypertrophy is seen. Superimposed upon a very mild disc bulge is seen moderate-sized left lateral disc extrusion. A mild degree of spinal canal narrowing is noted. No definite neural foraminal narrowing is seen. C5-6: Moderate uncovertebral joint hypertrophy is seen, along with a [id number] broad-based disc protrusion. At least moderate spinal canal narrowing is noted, along with at least mild bilateral neural foraminal narrowing, as well. C6-7: Superimposed upon a very mild disc bulge is seen a mild right lateral disc protrusion/extrusion very mild left lateral disc protrusion. No definite spinal canal stenosis is seen at this level. No definite neural foraminal narrowing is identified. C7-T1: No significant disc bulge or herniation is seen. No spinal canal stenosis or neural foraminal narrowing is seen at this level. MRI/Spine Cervical (Routine) IMPRESSION: Multilevel cervical degenerative disc disease, as described, with spinal canal narrowing greatest at the C5-C6 level, also with subtle cervical cord signal changes at that level consistent with chronic cord contusion. Reading Location: [place] [id number]
--- OUTSIDE RECORDS SUMMARY | 2024-11-02 07:04 | XMS RPT_ITS | CCD ---
Author Organization [facility] Care Team Providers Care Career Development Facilitator Name Role Phone Unavailable Primary Care Provider UnavailTerence Olson Primary Care Provider TERENCE STEVENS Primary Care Unavailable TERENCE STEVENS Primary Care Unavailable Dr. Terence Stevens Primary Care Provider Dr. Jose Ascencio Attending Provider [phone] Dr. Terence Stevens Primary Care Provider [phone] Dr. Terence Stevens Referring Provider Dr. Jose Ascencio Attending Provider Dr. Terence Stevens MD Primary Care Provider [phone] Archieorrow MARKETING SENIOR RECRUITERMarkell Zimmer Attending Provider [phone] Archieorr MARKETING SENIOR RECRUITERMarkell Zimmer Referring Provider Dr. Terence Stevens MD Attending Provider Dr. Terence Stevens MD Referring Provider Terence Stevens Referring Unavailable Terence Stevens Primary Care Unavailable Terence Stevens Attending Unavailable Terence Stevens Referring Unavailable Terence Stevens Attending Unavailable Terence Stevens Primary Care Unavailable Terence Stevens Primary Care Unavailable Kathy Price Attending Unavailable Kathy Price Referring Unavailable Terence Stevens Attending Unavailable Terence Stevens Referring Unavailable Terence Stevens Primary Care Unavailable Micha Ibarra Attending Unavailable Terence Stevens Attending Unavailable Terence Stevens Referring Unavailable Terence Stevens Primary Care Unavailable Markell Albarran Attending Unavailable Markell Albarran Referring Unavailable Terence Stevens Primary Care Unavailable Terence Stevens Attending Unavailable Terence Stevens Referring Unavailable Terence Stevens Primary Care Unavailable Medications Current Medications Medication Drug Class(es) Dates Sig (Normalized) Sig (Original) [id number] 200 actuat albuterol 0.09 mg/actuat metered dose inhaler (14 sources) beta2-Adrenergic Agonist Start: 12-11-2022 End: 03-10-2023 Albuterol Sulfate (Ventolin Hfa) 90 mcg/actuation HFA aerosol inhaler Active 2 NMA INHALATION EVERY 4 HOURS NEEDED as needed for Wheezing 8.5 0 March 10, 2023 1:00am Start: 12-11-2022 End: 03-10-2023 take 1 puff(s) by inhalation every four hours as needed Albuterol Sulfate (Ventolin Hfa) 90 mcg/actuation HFA aerosol inhaler Active 2 PUFF INHALATION EVERY 4 HOURS NEEDED 8.5 March 10, 2023 1:00am amoxicillin 875 mg / clavulanate 125 mg oral tablet (1 source) Penicillin-class Antibacterial Start: 08-27-2022 End: 09-03-2022 take 1 tablet by mouth twice daily amoxicillin-clavulanic acid (AUGMENTIN) 875-125 mg per tablet Take 1 tablet by mouth twice daily for 7 days. 14 tablet 0 08/27/2022 09/03/2022 Active Comment on above: Take 1 tablet by mouth twice daily for 7 days. fluconazole 150 mg oral tablet (1 source) Azole Antifungal Start: 08-27-2022 End: 08-28-2022 take 1 tablet by mouth once daily fluconazole (DIFLUCAN) 150 mg tablet Take 1 tablet by mouth once daily for 1 day. 1 tablet 0 08/27/2022 08/28/2022 Active Comment on above: Take 1 tablet by mouth once daily for 1 day. ibuprofen 600 mg oral tablet (1 source) Nonsteroidal Anti-inflammatory Drug Start: 03-13-2021 take 600 mg by mouth every six hours as needed Ibuprofen Active 600 MG PO EVERY 6 HOURS NEEDED March 13, 2021 10:47pm [place] (Nk) (9 sources) Start: 03-10-2023 [place] (Nk) Active March 10, 2023 1:00am Start: 03-10-2023 [place] (Nk) A ctive March 10, 2023 12:00am Start: 11-21-2021 [place] (Nk) A ctive November 20, 2021 11:00pm Start: 11-21-2021 [place] (Nk) A ctive November 21, 2021 12:00am ondansetron 4 mg oral tablet (11 sources) Serotonin-3 Receptor Antagonist Start: 03-13-2021 take 4 mg by mouth three times daily Ondansetron Hcl Active 4 MG PO THREE TIMES A DAY 12 March 13, 2021 10:46pm Start: 05-26-2014 End: 06-01-2014 take 1 tablet by mouth every six hours as needed for nausea Ondansetron 4 MG tablet Discontinued 4 mg PO EVERY 6 HOURS NEEDED as needed for Nausea May 26, 2014 12:00am June 01, 2014 10:43am predniSONE 20 mg oral tablet (14 sources) Start: 03-10-2023 take 1 tablet by mouth once daily Prednisone 20 mg tablet Active 20 mg PO DAILY 5 0 March 10, 2023 1:00am Start: 12-11-2022 End: 03-10-2023 take 2 tablets by mouth once daily Prednisone 20 mg tablet Discontinued 40 mg PO DAILY 8 4 0 December 11, 2022 12:00am March 10, 2023 2:26am Start: 12-11-2022 End: 03-10-2023 take 40 mg by mouth once daily Prednisone Discontinued 40 MG PO DAILY 8 4 December 11, 2022 12:00am March 10, 2023 2:26am Completed/Discontinued Medications Medication Drug Class(es) Dates Sig (Normalized) Sig (Original) acetaminophen 325 mg oral tablet (2 sources) take 2 tablets by mouth every six hours as needed acetaminophen (TYLENOL) 325 mg tablet Take 650 mg by mouth every 6 hours as needed for Pain. 0 Active Comment on above: Take 650 mg by mouth every 6 hours as needed for Pain. acetaminophen 325 mg / HYDROcodone bitartrate 5 mg oral tablet (20 sources) Opioid Agonist Start: 03-12-2018 End: 03-15-2018 Hydrocodone-Acetami nophen 1 TABLET tablet Discontinued 1 {tbl} PO EVERY 6 HOURS NEEDED as needed for Pain 10 3 0 March 12, 2018 1:00am March 14, 2018 1:00am March 15, 2018 1:07am Calculus of distal right ureter Calculus of ureter Start: 03-12-2018 End: 03-15-2018 take 1 tablet by mouth every six hours as needed Hydrocodone-Acetaminophen Discontinued 1 TABLET PO EVERY 6 HOURS NEEDED 10 3 March 12, 2018 1:00am March 15, 2018 1:07am Start: 05-26-2014 End: 06-01-2014 Hydrocodone-Acetaminophen 1 TABLET tablet Discontinued 1 - 2 {tbl} PO EVERY 6 HOURS NEEDED as needed for Pain 20 May 26, 2014 12:00am June 01, 2014 10:43am causes drowsiness Start: 05-26-2014 End: 06-01-2014 take 1 tablet by mouth every six hours as needed Hydrocodone-Acetaminophen Discontinued 1 - 2 TABLET PO EVERY 6 HOURS NEEDED May 26, 2014 12:00am June 01, 2014 10:43am causes drowsiness acetaminophen 325 mg / oxyCODONE hydrochloride 5 mg oral tablet (20 sources) Opioid Agonist Start: 02-26-2018 End: 03-05-2018 Oxycodone-Acetaminophen 1 TABLET tablet Discontinued 1 {tbl} PO EVERY 6 HOURS NEEDED as needed for Pain 12 3 0 March 02, 2018 1:00am March 04, 2018 1:00am March 05, 2018 1:07am Calculus of kidney Calculus of kidney Start: 02-26-2018 End: 03-05-2018 take 1 tablet by mouth every six hours as needed Oxycodone-Acetaminophen Discontinued 1 TABLET PO EVERY 6 HOURS NEEDED 12 3 March 02, 2018 1:00am March 05, 2018 1:07am ciprofloxacin 500 mg oral tablet (10 sources) Quinolone Antimicrobial Start: 02-26-2018 End: 03-01-2018 take 1 tablet by mouth twice daily Ciprofloxacin Hcl 500 MG tablet Discontinued 500 mg PO TWICE A DAY 14 0 February 26, 2018 1:00am March 01, 2018 2:28am fluticasone propionate 0.05 mg/actuat metered dose nasal spray (2 sources) Corticosteroid Start: 07-11-2021 take 2 spray(s) by mouth once daily fluticasone (FLONASE) 50 mcg/actuation nasal spray Use 2 Sprays in each nostril once daily. Rinse mouth after use. 1 Each 0 07/11/2021 Active Comment on above: Use 2 Sprays in each nostril once daily. Rinse mouth after use. folic acid 1 mg oral tablet (2 sources) Start: 01-09-2019 take 1 tablet by mouth once daily folic acid 1 mg tablet Take 1 tablet by mouth once daily. 30 tablet 11 01/09/2019 Active Comment on above: Take 1 tablet by carolyn once daily. ketorolac tromethamine 10 mg oral tablet (10 sources) Nonsteroidal Anti-inflammatory Drug, Cyclooxygenase Inhibitor Start: 05-26-2014 End: 06-01-2014 take 1 tablet by mouth every six hours Ketorolac 10 MG tablet Discontinued 10 mg PO EVERY 6 HOURS 20 0 May 26, 2014 12:00am June 01, 2014 10:42am Pain tamsulosin hydrochloride 0.4 mg oral capsule (2 sources) alpha-Adrenergic Dillon Start: 10-26-2019 take 1 capsule by mouth once daily tamsulosin ER (FLOMAX) 0.4 mg Take 1 capsule by mouth once daily. At the start of flank pain to help with kidney stones 30 capsule 1 10/26/2019 Active Comment on above: Take 1 capsule by mo cox branson once daily. At the start of flank pain to help with kidney stones Problems Active Problems Problem Classification Problem Date Documented Date Episodic/Chronic Abdominal pain (19 sources) Flank pain; Translations: [Unspecified abdominal pain] 07-19-2020 Episodic Calculus of urinary tract (20 sources) Kidney stone; Translations: [Calculus of kidney] 03-04-2021 Episodic Chronic obstructive pulmonary disease and bronchiectasis (1 source) Chronic obstructive pulmonary disease, unspecified; Translations: [Chronic obstructive pulmonary disease, unspecified] Onset: 02-28-2024 Chronic Esophageal disorders (2 sources) Gastroesophageal reflux disease; Translations: [Gastro-esophageal reflux disease without esophagitis] 07-11-2007 Chronic Fracture of lower limb (10 sources) Closed trimalleolar fracture; Translations: [Displaced trimalleolar fracture of unspecified lower leg, initial encounter for closed fracture] 08-07-2013 Episodic Genitourinary symptoms and ill-defined conditions (20 sources) History of urinary tract infection; Translations: [Personal history of urinary (tract) infections] Onset: 06-19-2011 03-06-2021 Episodic Headache; including migraine (4 sources) Migraine; Translations: [Migraine, unspecified, not intractable, without status migrainosus] 07-11-2007 Chronic Nausea and vomiting (10 sources) Nausea and vomiting; Translations: [Nausea with vomiting, unspecified] 03-21-2021 Episodic Other diseases of kidney and ureters (1 source) Other specified disorders of kidney and ureter; Translations: [Other specified disorders of kidney and ureter] Onset: 01-23-2024 Chronic Other ear and sense organ disorders (1 source) Bilateral earache; Translations: [Otalgia, bilateral] Episodic Other lower respiratory disease (7 sources) Wheezing; Translations: [Wheezing] 12-19-2022 Episodic Other lower respiratory disease (7 sources) Dyspnea; Translations: [Shortness of breath] 12-19-2022 Episodic Other upper respiratory infections (10 sources) Viral upper respiratory tract infection; Translations: [Acute upper respiratory infection, unspecified] 03-12-2021 Episodic Otitis media and related conditions (1 source) Acute right otitis media; Translations: [Otitis media, unspecified, right ear] Episodic Spondylosis; intervertebral disc disorders; other back problems (12 sources) Low back pain; Translations: [Low back pain] Onset: 09-23-2024 03-21-2021 Episodic Urinary tract infections (10 sources) Urinary tract infectious disease; Translations: [Urinary tract infection, site not specified] 07-19-2020 Episodic Past or Other Problems Problem Classification Problem Date Documented Date Episodic/Chronic Cancer of cervix (2 sources) Cervical intraepithelial neoplasia grade III with severe dysplasia; Translations: [Carcinoma in situ of cervix, unspecified] Onset: 07-14-2013 07-14-2013 Episodic Other lower respiratory disease (1 source) Chronic cough; Translations: [Chronic cough] Onset: 02-18-2024 Episodic Other screening for suspected conditions (not mental disorders or infectious disease) (1 source) Encounter for screening for malignant neoplasm of cervix; Translations: [Encounter for screening for malignant neoplasm of cervix] Onset: 07-16-2024 Episodic Screening and history of mental health and substance abuse codes (2 sources) Stopped smoking; Translations: [Personal history of nicotine dependence] Onset: 06-19-2011 03-06-2021 Episodic Results Test Name Value Interpretation Reference Range Facility CBC W/Diff, Automatedon 08-2 Absolute Lymph 2.74 X10 3/uL Normal 0.83-4.51 [facility] Comment on above: Order Comment: Order Date: 10/28/24 Order Info: [id number] - CBCD Performed By: #### L 500.4050, L501.5200, L100.0100, L500.4100 #### [facility] [address] [place], [address] Absolute Neut 4.3 X10 3/uL Normal 2.0-7.7 [facility] Comment on above: Order Comment: Order Date: 10/28/24 Order Info: [id number] - CBCD Performed By: #### L 500.4050, L501.5200, L100.0100, L500.4100 #### [facility] [address] [place], [address] Basophils/100 WBC (Bld) 0.9 % Normal 0-1 [facility] Comment on above: Order Comment: Order Date: 10/28/24 Order Info: [id number] - CBCD Performed By: #### L 500.4050, L501.5200, L100.0100, L500.4100 #### [facility] [address] [place], [address] Eosinophils/100 WBC (Bld) 1.9 % Normal 0-5 [facility] Comment on above: Order Comment: Order Date: 10/28/24 Order Info: [id number] - CBCD Performed By: #### L 500.4050, L501.5200, L100.0100, L500.4100 #### [facility] [address] [place], [address] Erythrocyte distribution width (RBC) [Ratio] 12.0 % Normal 11.6-14.6 [facility] Comment on above: Order Comment: Order Date: 10/28/24 Order Info: [id number] - CBCD Performed By: #### L 500.4050, L501.5200, L100.0100, L500.4100 #### [facility] [address] [place], [address] Hematocrit (Bld) [Volume fraction] 39.3 % Normal 37-47 [facility] Comment on above: Order Comment: Order Date: 10/28/24 Order Info: [id number] - CBCD Performed By: #### L 500.4050, L501.5200, L100.0100, L500.4100 #### [facility] [address] [place], [address] Hemoglobin (Bld) [Mass/Vol] 13.2 g/dL Normal 12.0-15.0 [facility] Comment on above: Order Comment: Order Date: 10/28/24 Order Info: [id number] - CBCD Performed By: #### L 500.4050, L501.5200, L100.0100, L500.4100 #### [facility] [address] [place], [address] IG% 0.500 Normal 0.0-0.9 [facility] Comment on above: Order Comment: Order Date: 10/28/24 Order Info: [id number] - CBCD Result Comment: IG% - Immature Granulocytes (promyelocytes, myelocytes and metamyelocytes) > 1% indicates that a LEFT SHIFT is Present. Performed By: #### L 500.4050, L501.5200, L100.0100, L500.4100 #### [facility] [address] [place], [address] Lymphocytes/100 WBC (Bld) 34.9 % Normal 19-41 [facility] Comment on above: Order Comment: Order Date: 10/28/24 Order Info: [id number] - CBCD Performed By: #### L 500.4050, L501.5200, L100.0100, L500.4100 #### [facility] [address] [place], [address] MCH (RBC) [Entitic mass] 30.1 pg Normal 27.0-32.0 [facility] Comment on above: Order Comment: Order Date: 10/28/24 Order Info: [id number] - CBCD Performed By: #### L 500.4050, L501.5200, L100.0100, L500.4100 #### [facility] [address] [place], [address] MCHC (RBC) [Mass/Vol] 33.6 g/dL Normal 32-36 [facility] Comment on above: Order Comment: Order Date: 10/28/24 Order Info: [id number] - CBCD Performed By: #### L 500.4050, L501.5200, L100.0100, L500.4100 #### [facility] [address] [place], [address] MCV (RBC) [Entitic vol] 89.5 fL Normal 81-99 [facility] Comment on above: Order Comment: Order Date: 10/28/24 Order Info: [id number] - CBCD Performed By: #### L 500.4050, L501.5200, L100.0100, L500.4100 #### [facility] [address] [place], [address] Monocytes/100 WBC (Bld) 6.6 % Normal 0-10 [facility] Comment on above: Order Comment: Order Date: 10/28/24 Order Info: [id number] - CBCD Performed By: #### L 500.4050, L501.5200, L100.0100, L500.4100 #### [facility] [address] [place], [address] Neutrophils/100 WBC (Bld) 55.2 % Normal 47-70 [facility] Comment on above: Order Comment: Order Date: 10/28/24 Order Info: [id number] - CBCD Performed By: #### L 500.4050, L501.5200, L100.0100, L500.4100 #### [facility] [address] [place], [address] Nucleated RBC (Bld) [#/Vol] 0 10*3/uL Normal 0-5 [facility] Comment on above: Order Comment: Order Date: 10/28/24 Order Info: [id number] - CBCD Performed By: #### L 500.4050, L501.5200, L100.0100, L500.4100 #### [facility] [address] [place], [address] Platelet mean volume (Bld) [Entitic vol] 10.2 fL Normal 6.2-12.0 [facility] Comment on above: Order Comment: Order Date: 10/28/24 Order Info: [id number]- - CBCD Performed By: #### L 500.4050, L501.5200, L100.0100, L500.4100 #### [facility] [address] [place], [address] Platelets (Bld) [#/Vol] 319 10*3/uL Normal 150-450 [facility] Comment on above: Order Comment: Order Date: 10/28/24 Order Info: [id number]- - CBCD Performed By: #### L 500.4050, L501.5200, L100.0100, L500.4100 #### [facility] [address] [place], [address] RBC (Bld) [#/Vol] 4.39 10*6/uL Normal 4.2-5.4 [facility] Comment on above: Order Comment: Order Date: 10/28/24 Order Info: [id number] - CBCD Performed By: #### L 500.4050, L501.5200, L100.0100, L500.4100 #### [facility] [address] [place], [address] RDW SD 39.2 fl Normal 35.1-43.9 [facility] Comment on above: Order Comment: Order Date: 10/28/24 Order Info: [id number] - CBCD Performed By: #### L 500.4050, L501.5200, L100.0100, L500.4100 #### [facility] [address] [place], [address] WBC (Bld) [#/Vol] 7.8 10*3/uL Normal 4.4-11.0 [facility] Comment on above: Order Comment: Order Date: 10/28/24 Order Info: [id number] - CBCD Performed By: #### L 500.4050, L501.5200, L100.0100, L500.4100 #### [facility] [address] [place], [address] Comprehensive Metabolic Prof ilon 10-28-2024 Albumin [Mass/Vol] 4.3 g/dL Normal 3.5-5.0 [facility] Comment on above: Order Comment: Order Date: 10/28/24 Order Info: [id number] - CMP Order Info: [id number] - LIPID Order Info: [id number] - MG Urine Performed By: #### L 500.4050, L501.5200, L100.0100, L500.4100 #### [facility] [address] [place], [address] Albumin/Globulin [Mass ratio] 1.6 {ratio} Normal 0.9-2.4 [facility] Comment on above: Order Comment: Order Date: 10/28/24 Order Info: [id number] - CMP Order Info: [id number] - LIPID Order Info: [id number] - MG Urine Performed By: #### L 500.4050, L501.5200, L100.0100, L500.4100 #### [facility] [address] [place], [address] ALK PHOS 71 U/L Normal 35-104 [facility] Comment on above: Order Comment: Order Date: 10/28/24 Order Info: [id number] - CMP Order Info: [id number] - LIPID Order Info: [id number] - MG Urine Performed By: #### L 500.4050, L501.5200, L100.0100, L500.4100 #### [facility] [address] [place], [address] ALT [Catalytic activity/Vol] 21 U/L Normal <=34 [facility] Comment on above: Order Comment: Order Date: 10/28/24 Order Info: [id number] - CMP Order Info: [id number] - LIPID Order Info: [id number] - MG Urine Performed By: #### L 500.4050, L501.5200, L100.0100, L500.4100 #### [facility] [address] [place], [address] AST [Catalytic activity/Vol] 16 U/L Normal <=31 [facility] Comment on above: Order Comment: Order Date: 10/28/24 Order Info: [id number] - CMP Order Info: [id number] - LIPID Order Info: [id number] - MG Urine Performed By: #### L 500.4050, L501.5200, L100.0100, L500.4100 #### [facility] [address] [place], [address] Bilirubin [Mass/Vol] 0.32 mg/dL Normal 0.00-1.30 [facility] Comment on above: Order Comment: Order Date: 10/28/24 Order Info: [id number] - CMP Order Info: [id number] - LIPID Order Info: [id number] - MG Urine Performed By: #### L 500.4050, L501.5200, L100.0100, L500.4100 #### [facility] [address] [place], [address] BUN/CRE 15.1 RATIO Normal 10-20 [facility] Comment on above: Order Comment: Order Date: 10/28/24 Order Info: [id number] - CMP Order Info: [id number] - LIPID Order Info: [id number] - MG Urine Performed By: #### L 500.4050, L501.5200, L100.0100, L500.4100 #### [facility] [address] [place], [address] Calcium [Mass/Vol] 9.4 mg/dL Normal 7.6-11.0 [facility] Comment on above: Order Comment: Order Date: 10/28/24 Order Info: [id number] - CMP Order Info: [id number] - LIPID Order Info: [id number] - MG Urine Performed By: #### L 500.4050, L501.5200, L100.0100, L500.4100 #### [facility] [address] [place], [address] Chloride [Moles/Vol] 103 mmol/L Normal 98-108 [facility] Comment on above: Order Comment: Order Date: 10/28/24 Order Info: [id number] - CMP Order Info: [id number] - LIPID Order Info: [id number] - MG Urine Performed By: #### L 500.4050, L501.5200, L100.0100, L500.4100 #### [facility] [address] [place], [address] CO2 [Moles/Vol] 25.1 mmol/L Normal 21.0-32.0 [facility] Comment on above: Order Comment: Order Date: 10/28/24 Order Info: [id number] - CMP Order Info: [id number] - LIPID Order Info: [id number] - MG Urine Performed By: #### L 500.4050, L501.5200, L100.0100, L500.4100 #### [facility] [address] [place], [address] Creatinine [Mass/Vol] 0.80 mg/dL Normal 0.70-1.20 [facility] Comment on above: Order Comment: Order Date: 10/28/24 Order Info: [id number] - CMP Order Info: [id number] - LIPID Order Info: [id number] - MG Urine Performed By: #### L 500.4050, L501.5200, L100.0100, L500.4100 #### [facility] [address] [place], [address] GAP 11 Normal 5-15 [facility] Comment on above: Order Comment: Order Date: 10/28/24 Order Info: [id number] - CMP Order Info: [id number] - LIPID Order Info: [id number] - MG Urine Performed By: #### L 500.4050, L501.5200, L100.0100, L500.4100 #### [facility] [address] [place], [address] GFR/1.73 sq M.predicted among non-blacks MDRD (S/P/Bld) [Vol rate/Area] 99 mL/min/{1.73_m2} Normal >60 [facility] Comment on above: Order Comment: Order Date: 10/28/24 Order Info: [id number] - CMP Order Info: [id number] - LIPID Order Info: [id number] - MG Urine Result Comment: mL/m in/1.73m2 CKD-EPI Creatinine Equation (2020) Performed By: #### L 500.4050, L501.5200, L100.0100, L500.4100 #### [facility] [address] [place], [address] Globulin (S) [Mass/Vol] 2.6 g/dL Normal 2.2-4.2 [facility] Comment on above: Order Comment: Order Date: 10/28/24 Order Info: [id number] - CMP Order Info: [id number] - LIPID Order Info: [id number] - MG Urine Performed By: #### L 500.4050, L501.5200, L100.0100, L500.4100 #### [facility] [address] [place], [address] Glucose [Mass/Vol] 86 mg/dL Normal 70-99 [facility] Comment on above: Order Comment: Order Date: 10/28/24 Order Info: [id number] - CMP Order Info: [id number] - LIPID Order Info: [id number] - MG Urine Performed By: #### L 500.4050, L501.5200, L100.0100, L500.4100 #### [facility] [address] [place], [address] Potassium [Moles/Vol] 3.9 mmol/L Normal 3.3-5.1 [facility] Comment on above: Order Comment: Order Date: 10/28/24 Order Info: [id number] - CMP Order Info: [id number] - LIPID Order Info: [id number] - MG Urine Performed By: #### L 500.4050, L501.5200, L100.0100, L500.4100 #### [facility] [address] [place], [address] Sodium [Moles/Vol] 139 mmol/L Normal 133-145 [facility] Comment on above: Order Comment: Order Date: 10/28/24 Order Info: [id number] - CMP Order Info: [id number] - LIPID Order Info: [id number] - MG Urine Performed By: #### L 500.4050, L501.5200, L100.0100, L500.4100 #### [facility] [address] [place], [address] T PROT 6.9 g/dL Normal 5.9-8.4 [facility] Comment on above: Order Comment: Order Date: 10/28/24 Order Info: [id number] - CMP Order Info: [id number] - LIPID Order Info: [id number] - MG Urine Performed By: #### L 500.4050, L501.5200, L100.0100, L500.4100 #### [facility] [address] [place], [address] Urea nitrogen [Mass/Vol] 12 mg/dL Normal 4-19 [facility] Comment on above: Order Comment: Order Date: 10/28/24 Order Info: 07-1 - CMP Order Info: [id number] - LIPID Order Info: [id number] - MG Urine Performed By: #### L 500.4050, L501.5200, L100.0100, L500.4100 #### [facility] [address] [place], [address] Lipid Profileon 10-28-2024 CHOL:HDL 4.42 Normal [facility] Comment on above: Order Comment: Order Date: 10/28/24 Order Info: 07- - CMP Order Info: [id number] - LIPID Order Info: [id number] - MG Performed By: #### L 500.4050, L501.5200, L100.0100, L500.4100 #### [facility] [address] [place], [address] Cholesterol [Mass/Vol] 208 mg/dL High <=200 [facility] Comment on above: Order Comment: Order Date: 10/28/24 Order Info: 07- - CMP Order Info: [id number] - LIPID Order Info: [id number] - MG Result Comment: Chol esterol level, Desirable <200 mg/dL Borderline high cholesterol 200-239 mg/dL High cholesterol >=240 mg/dL Recommendations of the NCEP Adult Treatment Panel for the following risk-cutoff thresholds for the [place] population. Performed By: #### L 500.4050, L501.5200, L100.0100, L500.4100 #### [facility] [address] [place], [address] Cholesterol in HDL [Mass/Vol] 47 mg/dL Normal [facility] Comment on above: Order Comment: Order Date: 10/28/24 Order Info: [id number] - CMP Order Info: [id number] - LIPID Order Info: [id number] - MG Result Comment: [place] Cholesterol Education Program (NCEP) guidelines: <40 mg/dL: Low HDL-cholesterol (major risk factor for CHD) >= 60 mg/dL: High HDL-cholesterol (negative risk factor for CHD) HDL-cholesterol is affected by a number of factors, e.g. smoking, exercise, hormones, sex and age. Performed By: #### L 500.4050, L501.5200, L100.0100, L500.4100 #### [facility] [address] [place], [address] Cholesterol in LDL [Mass/Vol] 135 mg/dL Normal [facility] Comment on above: Order Comment: Order Date: 10/28/24 Order Info: [id number] - CMP Order Info: [id number] - LIPID Order Info: [id number] - MG Result Comment: Bord utjypd=984-648 mg/dL Higher Fbzk=621 mg/dL or greater Friedwald Equation for LDL-C Performed By: #### L 500.4050, L501.5200, L100.0100, L500.4100 #### [facility] [address] [place], [address] Cholesterol in VLDL [Mass/Vol] 26 mg/dL Normal 5-40 [facility] Comment on above: Order Comment: Order Date: 10/28/24 Order Info: [id number] - CMP Order Info: [id number] - LIPID Order Info: [id number] - MG Performed By: #### L 500.4050, L501.5200, L100.0100, L500.4100 #### [facility] [address] [place], [address] Triglyceride [Mass/Vol] 128 mg/dL Normal [facility] Comment on above: Order Comment: Order Date: 10/28/24 Order Info: [id number] - CMP Order Info: [id number] - LIPID Order Info: [id number] - MG Result Comment: The drugs N-Acetylcysteine and Metamizole may falsely depress this assay. Normal range: <150 mg/dL Borderline High: 150-199 mg/dL High: 200-499 mg/dL Very High: >500 mg/dL Performed By: #### L 500.4050, L501.5200, L100.0100, L500.4100 #### [facility] [address] [place], [address] Magnesiumon 10-28-2024 Magnesium [Mass/Vol] 2.0 mg/dL Normal 1.5-2.2 [facility] Comment on above: Order Comment: Order Date: 10/28/24 Order Info: [id number] - CMP Order Info: [id number] - LIPID Order Info: [id number] - MG Performed By: #### L 500.4050, L501.5200, L100.0100, L500.4100 #### [facility] [address] [place], [address] Urinalysis, Completeon 10-28 EPI,SQUAMOUS 0-5 SEEN Normal 5-10 [facility] Comment on above: Order Comment: Urine CLEAN CATCH Performed By: #### L 400.0001 #### [facility] [address] [place], [address] BACTERIA 0 SEEN Normal None Seen [facility] Comment on above: Order Comment: Urine CLEAN CATCH Performed By: #### L 400.0001 #### [facility] [address] [place], [address] Mucus Ql (Urine sed) 0 SEEN Normal [facility] Comment on above: Order Comment: Urine CLEAN CATCH Performed By: #### L 400.0001 #### [facility] [address] [place], [address] RBC 0 SEEN Normal 0-5 [facility] Comment on above: Order Comment: Urine CLEAN CATCH Performed By: #### L 400.0001 #### [facility] [address] [place], [address] WBC 0 SEEN Normal 0-5 [facility] Comment on above: Order Comment: Urine CLEAN CATCH Performed By: #### L 400.0001 #### [facility] [address] [place], [address] Neck for Soft Tissueon 09-18 Neck for Soft Tissue [facility] Services [address] [place] [address] Neck for Soft Tissue MR#: [id number] Acct: [id number] Name: EILEEN CAMERON Rep #: [id number] : 1990 F 33 From: Jovanni parikh MD PCP: Dr. Terence Stevens MD Status: REG CLI Study: Neck for Soft Tissue Date of Exam: 09/18/24 Exam# [id number] Ordering Dr: Terence Stevens MD PROCEDURE: NECK FOR SOFT TISSUE 09/18/2024 REASON FOR EXAM: CERVICAL RADICULOPATHY TECHNIQUE: NECK FOR SOFT TISSUE COMPARISON: None FINDINGS: The vertebral alignment is maintained without evidence of fracture. Straightened cervical lordosis is seen. C5-6 end plates osteophytes are seen. Reduced C5-6 and C6-7 disc spaces and facet arthropathy, rest Intervertebral disc spaces are normal. Marginal anterior osteophytes are seen. The paraspinal soft tissues appear normal. RAD/Neck for Soft Tissue IMPRESSION: C5-6 and C6-7 levels degenerative changes. Straightened cervical lordosis in keeping with muscle spasm. No evidence of cervical vertebral fracture. Reading Location: [place] [address] CC: Dr. Terence Stevens MD [employer] Supervisor: Signed Normal [facility] PAP IG HPV HR APTIMAon 07-14 ADEQ Comment Normal . [facility] Comment on above: Order Comment: Speci men Comment: [id number] Specimen Comment: No. of containers..01 ThinPrep Vial Result Comment: Sati sfactory for evaluation. No endocervical component is identified. Performed By: #### L 7400.0377 #### [facility] [address] [place], [address] COMM . Normal . [facility] Comment on above: Order Comment: Speci men Comment: [id number] Specimen Comment: No. of containers..01 ThinPrep Vial Performed By: #### L 7400.0377 #### [facility] [address], [place], [address] COMMENT Comment Normal . [facility] Comment on above: Order Comment: Speci men Comment: [id number] Specimen Comment: No. of containers..01 ThinPrep Vial Result Comment: This liquid based ThinPrep(R) pap test was screened with the use of an image guided system. Performed By: #### L 7400.0377 #### [facility] [address] [place], [address] DIAG Comment Normal . [facility] Comment on above: Order Comment: Speci men Comment: [id number] Specimen Comment: No. of containers..01 ThinPrep Vial Result Comment: NEGA TIVE FOR INTRAEPITHELIAL LESION OR MALIGNANCY. Performed By: #### L 7400.0377 #### [facility] [address], [place], [address] HPV APTIMA, HR Negative Normal Negative [facility] Comment on above: Order Comment: Speci men Comment: [id number] Specimen Comment: No. of containers..01 ThinPrep Vial Result Comment: This nucleic acid amplification test detects fourteen high- risk HPV types (16,18,31,33,35,39,45,51,52,56,58,59,66,68) without differentiation. Performed at: [address] [id number] Retail Seasonal Specialist: Tayler Rodriguez MD, Phone: [phone] Performed at: =[address] [id number] Retail Seasonal Specialist: Tyaler Rodriguez MD, Phone: [phone] Performed By: #### L 7400.0377 #### [facility] [address], [place], [address] PAPSMR Comment Normal . [facility] Comment on above: Order Comment: Speci men Comment: [id number] Specimen Comment: No. of containers..01 ThinPrep Vial Result Comment: The Pap smear is a screening test designed to aid in the detection of premalignant and malignant conditions of the uterine cervix. It is not a diagnostic procedure and should not be used as the sole means of detecting cervical cancer. Both false-positive and false-negative reports do occur. Performed By: #### L 7400.0377 #### [facility] [address], [place], [address] PERFORM Comment Normal . [facility] Comment on above: Order Comment: Speci men Comment: [id number] Specimen Comment: No. of containers..01 ThinPrep Vial Result Comment: Georgia Ayala, Diesel Stationary Engineer (ASCP) Performed By: #### L 7400.0377 #### [facility] [address], [place], [address] Cervical or vagninal specime n microscopic examination by cytology stain (reported asOrdered By: Markell Albarran on 07-09-2024 Cytology report Cyto stain Doc (Cvx/Vag) Comment . [facility] Comment on above: The Pap smear is a s creening test designed to aid in thedetection of premalignant and malignant conditions of theuterine cervix. It is not a diagnostic procedure andshould not be used as the sole means of detecting cervicalcancer. Both false-positive and false-negative reports dooccur. Detection in cervical specim en of any of human papilloma virus (HPV) 16, 18, 31, 33,Ordered By: Markell Albarran on 07-09-2024 HPV 16+18+31+33+35+39+45+51+5 2+56+58+59+66+68 DNA Probe+sig amp Ql (Cvx) Negative Negative [facility] Comment on above: This nucleic acid am plification test detects fourteen high-risk HPV types (16,18,31,33,35,39,45,51,52,56,58,59,66,68)without differentiation.Performed at: - [facility], [place] [id number] Director: Tayler Rodriguez MD, Phone: [phone] at: = - [facility], [place] [id number] Director: Tayler Rodriguez MD, Phone: [phone] Laboratory - CytologyOrdered By: Markell Albarran on 07-09-2024 Diesel Stationary Engineer Cyto stain Nom (Cvx/Vag) [ID] Comment . [facility] Comment on above: Lindsay Ayala Cytolog ist (ASCP) Laboratory - Miscellaneous t estsOrdered By: Markell Albarran on 07-09-2024 Service comment (Unsp spec) [Interp] . . [facility] No Panel InformationOrdered By: Markell Albarran on 07-09-2024 Pap Smear Specimen Adequacy Comment . [facility] Comment on above: Satisfactory for joanne luation. No endocervical component is identified. Alpha Antitrypsin Serumon ALPHA1 ANTITRYP 116 mg/dL Normal 100-188 [facility] Comment on above: Order Comment: Order Date: 01/31/24 Order Info: [id number] - AA Result Comment: Perf ormed at: - [facility] [address] [id number] Retail Seasonal Specialist: Ricardo Carrington PhD, Phone: [phone] Performed By: #### L 3900.2100 #### [facility] [address] [place], [address] Chest PA and Lateralon 01-30 Chest PA and Lateral [facility] Services [address] [place] [address] Chest PA and Lateral MR#: [id number] Acct: [id number] Name: EILEEN CAMERON Rep #: [id number] : 1990 F 33 From: Enmanuel Billingsley MD PCP: Dr. Terence Stevens MD Status: REG CLI Study: Chest PA and Lateral Date of Exam: 01/31/24 Exam# [id number] Ordering Dr: Terence Stevens MD -[id number] STUDY: X-RAY CHEST REASON FOR EXAM: Female, 33 years old. Cough. TECHNIQUE: Frontal and lateral views of the chest on 3 images. COMPARISON: April 18, 2023 FINDINGS: The lungs are clear and expanded. There is no demonstrated pleural abnormality. Normal size heart. Normal mediastinum and gómez. Normal visualized pulmonary arteries. Normal visualized aortic arch and descending thoracic aorta. Normal visualized thoracic spine. Normal visualized ribs, clavicles, and shoulders. No abnormality of the visualized soft tissue structures of the upper abdomen. RAD/Chest PA and Lateral IMPRESSION: No interval change and no acute or active cardiopulmonary disease. Electronically Signed: Enmanuel Billingsley MD at 14:28 EST Reading Location ID and State: [facility] / [place] , Service support , CC: Dr. Terence Stevens MD [employer] Supervisor: Signed Normal [facility] Renal Profileon 12-30-2023 Albumin [Mass/Vol] 4.2 g/dL Normal 3.2-5.0 [facility] Comment on above: Order Comment: PER Maria E PRICE ORDER Performed By: #### L 500.3600 #### [facility] [address], [place], [address] BUN/CRE 18.4 RATIO Normal - [facility] Comment on above: Order Comment: PER Maria E PRICE ORDER Performed By: #### L 500.3600 #### [facility] [address] [place], [address] CA,Total 9.4 mg/dL Normal 8.5-10.1 [facility] Comment on above: Order Comment: PER Maria E PRICE ORDER Performed By: #### L 500.3600 #### [facility] [address] [place], [address] Chloride [Moles/Vol] 107 mmol/L Normal 98-107 [facility] Comment on above: Order Comment: PER Maria E PRICE ORDER Performed By: #### L 500.3600 #### [facility] [address] [place], [address] CO2 [Moles/Vol] 27.0 mmol/L Normal 21.0-32.0 [facility] Comment on above: Order Comment: PER Maria E PRICE ORDER Performed By: #### L 500.3600 #### [facility] [address] [place], [address] Creatinine [Mass/Vol] 0.76 mg/dL Normal 0.55-1.02 [facility] Comment on above: Order Comment: PER Maria E PRICE ORDER Result Comment: The validity of the calculated GFR GFRAA in patients over 70 years has not been determined. Clinical correlation is essential. Performed By: #### L 500.3600 #### [facility] [address] [place], [address] EST GFR - AA 112 mL/min Normal >60 [facility] Comment on above: Order Comment: PER Maria E PRICE ORDER Result Comment: Afri can [place] GFR Calc Performed By: #### L 500.3600 #### [facility] [address] [place], [address] GFR/1.73 sq M.predicted among non-blacks MDRD (S/P/Bld) [Vol rate/Area] 93 mL/min/{1.73_m2} Normal >60 [facility] Comment on above: Order Comment: PER Maria E PRICE ORDER Result Comment: Non- GFR Calc Performed By: #### L 500.3600 #### [facility] [address] [place], [address] Glucose [Mass/Vol] 93 mg/dL Normal 74-106 [facility] Comment on above: Order Comment: PER P Francisco-ALFIE PRICE ORDER Performed By: #### L 500.3600 #### [facility] [address] [place], [address] Phosphate [Mass/Vol] 2.5 mg/dL Normal 2.5-4.9 [facility] Comment on above: Order Comment: PER P Francisco-ALFIE PRICE ORDER Performed By: #### L 500.3600 #### [facility] [address] [place], [address] Potassium [Moles/Vol] 3.6 mmol/L Normal 3.5-5.1 [facility] Comment on above: Order Comment: PER P MELIZA PRICE ORDER Performed By: #### L 500.3600 #### [facility] [address] [place], [address] Sodium [Moles/Vol] 137 mmol/L Normal 136-145 [facility] Comment on above: Order Comment: PER P Francisco-ALFIE PRICE ORDER Performed By: #### L 500.3600 #### [facility] [address] [place], [address] Urea nitrogen [Mass/Vol] 14 mg/dL Normal 7-18 [facility] Comment on above: Order Comment: PER P Francisco-ALFIE PRICE ORDER Performed By: #### L 500.3600 #### [facility] [address] [place], [address] Basophil percentageOrdered B y: Kathy Price on 06-11-2023 Basophil percentage 0 SEEN /hpf 0-5 [facility] Basophil percentage 2.6 mg/dL 2.5-4.9 [facility] Chloride [Moles/Vol] 108 mmol/L 98-107 [facility] Glucose [Mass/Vol] 103 mg/dL 74-106 [facility] Comment on above: Fasting Glucose resu lt from 100 to 125 mg/dL suggests IMPAIRED HOMEOSTASIS per A.D.A. criteria. Potassium [Moles/Vol] 4.1 mmol/L 3.5-5.1 [facility] Sodium [Moles/Vol] 138 mmol/L 136-145 [facility] Bilirubin Test strip Ql (U)O rdered By: Kathy Price on 06-11-2023 Bilirubin Ql (U) Negative Negative [facility] Ketones Test strip Ql (U)Ord ered By: Kathy Price on 06-11-2023 Ketones Ql (U) Negative Negative [facility] - Chemistry and C hemistry - challengeOrdered By: Kathy Price on 06-11-2023 CO2 [Moles/Vol] 25.0 mmol/L 21.0-32.0 [facility] Urea nitrogen/Creatinine [Mass ratio] 14.7 mg/mg 10-20 [facility] Mucus LM Ql (Urine sed)Order ed By: Kathy Price on 06-11-2023 Mucus Ql (Urine sed) 0 SEEN /hpf [facility] Nitrite Test strip Ql (U)Ord ered By: Kathy Price on 06-11-2023 Nitrite Ql (U) Negative Negative [facility] No Panel InformationOrdered By: Kathy Price on 06-11-2023 Estimated GFR (MDRD) Amer 103 mL/min >60 [facility] Comment on above: GFR Calc Estimated GFR (MDRD) Non-Af Amer 85 mL/min >60 [facility] Comment on above: Non- GFR Calc Urine RBC 0-5 SEEN /hpf 0-5 [facility] Protein Test strip Ql (U)Ord ered By: Kathy Price on 06-11-2023 Protein Ql (U) 15 mg/dl Negative [facility] Serum or plasma calcium mitchell urement (mass/volume)Ordered By: Kathy Price on 06-11-2023 Calcium [Mass/Vol] 9.1 mg/dL 8.5-10.1 [facility] Serum or plasma creatinine m easurement (mass/volume)Ordered By: Kathy Price on 06-11-2023 Creatinine [Mass/Vol] 0.82 mg/dL 0.55-1.02 [facility] Comment on above: The validity of the calculated GFR & GFRAA in patients over 70 years has not been determined. Clinical correlation is essential. Serum or plasma urea nitroge n measurement (mass/volume)Ordered By: Kathy Price on 06-11-2023 Urea nitrogen [Mass/Vol] 12 mg/dL 7-18 [facility] Squamous epithelial cells de tection in urine sediment by light microscopyOrdered By: Kathy Price on 06-11-2023 Epithelial cells.squamous LM Ql (Urine sed) 0-5 SEEN /hpf 5-10 [facility] Thin prep Papanicolaou smear with manual screeningOrdered By: Kathy Price on 06-11-2023 Thin prep Papanicolaou smear with manual screening 4.0 g/dL 3.2-5.0 [facility] Urine blood detectionOrdered By: Kathy Price on 06-11-2023 RBC Ql (U) 25 /ul Negative [facility] Urine clarityOrdered By: Huseyin Price on 06-11-2023 Clarity (U) Sl. Cloudy Clear [facility] Urine color determinationOrd ered By: Kathy Price on 06-11-2023 Color (U) Yellow Yellow [facility] Urine glucose detectionOrder ed By: Kathy Price on 06-11-2023 Glucose Ql (U) Normal mg/dl Normal [facility] Urine leukocyte esterase det ection by dipstickOrdered By: Kathy Price on 06-11-2023 Leukocyte esterase Test strip Ql (U) Negative Negative [facility] Urine pHOrdered By: Daina Price on 06-11-2023 pH (U) 6.5 [pH] 5.0 - 8.0 [facility] Urine sediment bacteria coun t by microscopy (number/high power field)Ordered By: Kathy Price on 06-11-2023 Bacteria LM.HPF (Urine sed) [#/Area] 1 /[HPF] None Seen [facility] Urine specific gravity measu rementOrdered By: Kathy Price on 06-11-2023 Specific gravity (U) [Rel density] 1.015 1.002-1.030 [facility] Urine urobilinogen measureme ntOrdered By: Kathy Price on 06-11-2023 Urobilinogen Ql (U) Normal mg/dl Normal [facility] Absolute lymphocyte countOrd ered By: Terence Stevens on 04-18-2023 Lymphocytes Auto (Unsp spec) [#/Vol] 2.91 10*3/uL 0.83-4.51 [facility] Automated lymphocyte count a s percentage of total leukocytesOrdered By: Terence Stevens on 04-18-2023 Lymphocytes/100 WBC Auto (Unsp spec) 32.1 % 19-41 [facility] Basophil percentageOrdered B y: Terence Stevens on 04-18-2023 Basophil percentage 0 SEEN /hpf 0-5 [facility] Basophils/100 WBC (Bld) 1.3 % 0-1 [facility] Bilirubin [Mass/Vol] 0.40 mg/dL 0.20-1.00 [facility] Comment on above: For patients on eltr ombopag therapy, use of Dimension [place] TBIL is not recommended. Chloride [Moles/Vol] 105 mmol/L 98-107 [facility] Cholesterol [Mass/Vol] 187 mg/dL <200 [facility] Comment on above: <200 mg/dL Desirable 200-240 mg/dL Borderline >240 mg/dL High Risk Eosinophils/100 WBC (Bld) 7.1 % 0-5 [facility] Glucose [Mass/Vol] 78 mg/dL 74-106 [facility] Hemoglobin (Bld) [Mass/Vol] 14.0 g/dL 12.0-15.0 [facility] Monocytes/100 WBC (Bld) 6.0 % 0-10 [facility] Neutrophils (Bld) [#/Vol] 4.8 10*3/uL 2.0-7.7 [facility] Neutrophils/100 WBC (Bld) 53.3 % 47-70 [facility] Potassium [Moles/Vol] 3.5 mmol/L 3.5-5.1 [facility] Comment on above: Slight Hemolysis, Re sult may be falsely increased. Protein [Mass/Vol] 7.5 g/dL 6.4-8.2 [facility] Sodium [Moles/Vol] 138 mmol/L 136-145 [facility] Triglyceride [Mass/Vol] 88 mg/dL <199 [facility] Comment on above: The drugs N-Acetylcy steine and Metamizole may falsely depress this assay.Serum Triglycerides Reference Interval Normal <150 mg/dL Borderline high 150 - 199 mg/dL High 200 - 499 mg/dL Very High > or = 500 mg/dL WBC (Bld) [#/Vol] 9.1 10*3/uL 4.4-11.0 [facility] Bilirubin Test strip Ql (U)O rdered By: Terence Stevens on 04-18-2023 Bilirubin Ql (U) Negative Negative [facility] Determination of erythrocyte mean corpuscular volume (MCV)Ordered By: Terence Stevens on 04-18-2023 MCV (RBC) [Entitic vol] 87.3 fL 81-99 [facility] Erythrocyte distribution wid th ratioOrdered By: Terence Stevens on 04-18-2023 Erythrocyte distribution width (RBC) [Ratio] 11.7 % 11.6-14.6 [facility] Erythrocyte distribution wid th standard deviationOrdered By: Terence Stevens on 04-18-2023 Erythrocyte distribution width (RBC) [Entitic vol] 37.6 fL 35.1-43.9 [facility] Hematocrit Auto (Bld) [Volum e fraction]Ordered By: Terence Stevens on 04-18-2023 Hematocrit (Bld) [Volume fraction] 42.0 % 37-47 [facility] Immature granulocytes/100 WB C Auto (Bld)Ordered By: Terence Stevens on 04-18-2023 Immature granulocytes/100 WBC (Bld) 0.200 % 0.0-0.9 [facility] Comment on above: IG% - Immature Granu locytes (promyelocytes, myelocytes and metamyelocytes) > 1% indicates that a LEFT SHIFT is Present. Ketones Test strip Ql (U)Ord ered By: Terence Stevens on 04-18-2023 Ketones Ql (U) 5 mg/dl Negative [facility] Laboratory - Chemistry and C hemistry - challengeOrdered By: Terence Stevens on 04-18-2023 Albumin/Globulin [Mass ratio] 1.3 {ratio} 0.9-2.4 [facility] ALP [Catalytic activity/Vol] 97 U/L 45-117 [facility] ALT [Catalytic activity/Vol] 28 U/L 13-56 [facility] Cholesterol in HDL [Mass/Vol] 41 mg/dL >40 [facility] Comment on above: The drugs N-Acetylcy steine and Metamizole may falsely depress this assay. Reference Range HDL <40 mg/dL Low HDL Cholesterol HDL >or= 60 mg/dL High HDL Cholesterol Cholesterol in LDL [Mass/Vol] 128 mg/dL 0-130 [facility] CO2 [Moles/Vol] 27.0 mmol/L 21.0-32.0 [facility] Globulin (S) [Mass/Vol] 3.3 g/dL 2.2-4.2 [facility] Urea nitrogen/Creatinine [Mass ratio] 19.5 mg/mg 10-20 [facility] - Hematology and Cell countsOrdered By: Terence Stevens on 04-18-2023 MCH (RBC) [Entitic mass] 29.1 pg 27.0-32.0 [facility] MCHC (RBC) [Mass/Vol] 33.3 g/dL 32-36 [facility] Nucleated RBC/100 WBC (Bld) [Ratio] 0 % 0-5 [facility] Platelet mean volume (Bld) [Entitic vol] 10.1 fL 6.2-12.0 [facility] Platelets (Bld) [#/Vol] 284 10*3/uL 150-450 [facility] Mucus LM Ql (Urine sed)Order ed By: Terence Stevens on 04-18-2023 Mucus Ql (Urine sed) 0 SEEN /hpf [facility] Nitrite Test strip Ql (U)Ord ered By: Terence Stevens on 04-18-2023 Nitrite Ql (U) Negative Negative [facility] No Panel InformationOrdered By: Terence Stevens on 04-18-2023 Estimated GFR (MDRD) Amer 111 mL/min >60 [facility] Comment on above: GFR Calc Estimated GFR (MDRD) Non-Af Amer 91 mL/min >60 [facility] Comment on above: Non- GFR Calc Urine RBC 5-10 SEEN /hpf 0-5 [facility] VLDL Cholesterol 18 mg/dL 5-40 [facility] Protein Test strip Ql (U)Ord ered By: Terence Stevens on 04-18-2023 Protein Ql (U) 15 mg/dl Negative [facility] RBC Auto (Bld) [#/Vol]Ordere d By: Terence Stevens on 04-18-2023 RBC (Bld) [#/Vol] 4.81 10*6/uL 4.2-5.4 [facility] Serum or plasma calcium mitchell urement (mass/volume)Ordered By: Terence Stevens on 04-18-2023 Calcium [Mass/Vol] 9.3 mg/dL 8.5-10.1 [facility] Serum or plasma creatinine m easurement (mass/volume)Ordered By: Terence Stevens on 04-18-2023 Creatinine [Mass/Vol] 0.77 mg/dL 0.55-1.02 [facility] Comment on above: The validity of the calculated GFR & GFRAA in patients over 70 years has not been determined. Clinical correlation is essential. Serum or plasma thyroid stim ulating hormone (TSH) measurement (units/volume)Ordered By: Terence Stevens on 04-18-2023 TSH Qn 0.76 uIU/mL 0.358-3.74 [facility] Serum or plasma urea nitroge n measurement (mass/volume)Ordered By: Terence Stevens on 04-18-2023 Urea nitrogen [Mass/Vol] 15 mg/dL 7-18 [facility] Squamous epithelial cells de tection in urine sediment by light microscopyOrdered By: Terence Stevens on 04-18-2023 Epithelial cells.squamous LM Ql (Urine sed) 0-5 SEEN /hpf 5-10 [facility] Thin prep Papanicolaou smear with manual screeningOrdered By: Terence Stevens on 04-18-2023 Thin prep Papanicolaou smear with manual screening 4.2 g/dL 3.2-5.0 [facility] Thin prep Papanicolaou smear with manual screening 16 U/L 15-37 [facility] Comment on above: Slight Hemolysis, Re sult may be falsely increased. Thin prep Papanicolaou smear with manual screening 6 5-15 [facility] Urine blood detectionOrdered By: Terence Stevens on 04-18-2023 RBC Ql (U) 25 /ul Negative [facility] Urine clarityOrdered By: Damon Stevens on 04-18-2023 Clarity (U) Clear Clear [facility] Urine color determinationOrd ered By: Terence Stevens on 04-18-2023 Color (U) Yellow Yellow [facility] Urine glucose detectionOrder ed By: Terence Stevens on 04-18-2023 Glucose Ql (U) Normal mg/dl Normal [facility] Urine leukocyte esterase det ection by dipstickOrdered By: Terence Stevens on 04-18-2023 Leukocyte esterase Test strip Ql (U) Negative Negative [facility] Urine pHOrdered By: Terence scott on 04-18-2023 pH (U) 6.0 [pH] 5.0 - 8.0 [facility] Urine sediment bacteria coun t by microscopy (number/high power field)Ordered By: Terence Stevens on 04-18-2023 Bacteria LM.HPF (Urine sed) [#/Area] 0 /[HPF] None Seen [facility] Urine specific gravity measu rementOrdered By: Terence Stevens on 04-18-2023 Specific gravity (U) [Rel density] 1.020 1.002-1.030 [facility] Urine urobilinogen measureme ntOrdered By: Terence Stevens on 04-18-2023 Urobilinogen Ql (U) 1 mg/dl Normal [facility] CNOVon 04-11-2023 CNOV Office Visit (UCWSTR) ---- EILEEN CAMERON ([id number]) 1990 F Date Time Provider Department 04/11/23 3:15 PM FREDDIE MONTERO [facility] During your visit today, we recorded the following information about you: Temperature Pulse Respiration Blood pressure 98.5 degrees 86/minute 18/minute 167/127 Weight 99.8 kg Freddie Montero APRN.PROCESSING CLERK 04/11/2023 3:57 PM Signed Subjective HPI HPI Eileen Cameron is a 32 year old female who [...] PAST SURGICAL HISTORY Procedure Laterality Date ERCP DESTRUCTION/LITHOTR IPSY CALCULI ANY METHOD 12/18/2016 NEPHROSTOGRAM PEDS Left 12/2016 LEEP PROCEDURE ([facility] DEPT)_*FL 2013 STENT,URETERAL,PERC PLS,4.8X24 2014 insertion and [...] medication if in acceptable range. Freddie Montero APRN.PROCESSING CLERK Allergies As of Date: 04/11/2023 (No Known Allergies) Date Reviewed: 04/11/2023 Reviewed by: Freddie Montero APRN.PROCESSING CLERK - Fully Assessed Reason for Visit: Ear Pain [817] Cmt: R ear pain x4 days Primary Visit Diagnosis:ETD (Eustachian tube dysfunction), right [H69.91] Order(s):predniSONE (DELTASONE) 10 mg tabletTake 4 tabs daily for 3 days, then 2 tabs daily for 3 days, then 1 tab sai (more content not included)... Normal [facility] CNOVon 08-27-2022 CNOV Office Visit (UCWSTR) ---- EILEEN CAMERON ([id number]) 1990 F Date Time Provider Department 08/27/22 2:30 PM OCHOA ESTEVEZ [facility] During your visit today, we recorded the following information about you: Temperature Pulse Respiration Blood pressure 99.3 degrees 115/minute 21/minute 170/120 Weight 100.1 kg Ochoa Estevez APRN.CNP 08/27/2022 5:12 PM Signed This note was created using NoteWriter. Subjective Eileen Cameron is a 31 year old female. 31 year old female with PMH migraines and GERD presents for complaints of illness. Acute onset 2 to 3 days ago +right ear pain. +nasal congestion +sinus pressure +post nasal drainage. Denies cough. Denies SOB Or dyspnea Denies abdominal pain. Denies N/V/D Denies tobacco usage. Denies using homeopathic or OTC BLEACH LIQUOR MAKER. The history is provided by the patient. No modern languages professor was used. Ear Pain This is a [...] Diagnosis Date Abnormal Pap smear of cervix 2008 ASCUS Esophageal reflux occasional - hasn't needed meds Migraine, unspecified, without mention of intractable migraine without mention of status migrainosus 2002 without auras Personal history of urinary (tract) infection 05/2004 Tension headache Urinary calculus, unspecified Renal stones PAST SURGICAL HISTORY Procedure Laterality Date ERCP DESTRUCTION/LITHOTR IPSY CALCULI ANY METHOD 12/18/2016 NEPHROSTOGRAM PEDS Left 12/2016 LEEP PROCEDURE ([facility] [facility] DEPT)_*FL 2013 STENT,URETERAL,PERC PLS,4.8X24 2014 insertion and removal ALLERGIES Patient has no known allergies. MEDICATIONS fluticasone (FLONASE) 50 mcg/actuation nasal spray Use 2 Sprays in each nostril once daily. Rinse mouth after use. acetaminophen (TYLENOL) 325 mg tablet Take 650 mg by mouth every 6 hours as needed for Pain. amoxicillin-clavula ignacia acid (AUGMENTIN) 875-125 mg per tablet Take [...] Negative for color change, pallor and rash. Allergic/Immunologi c: Negative for environmental allergies, food allergies and immunocompromised state. Neurological: Negative for dizziness, vertigo, facial asymmetry, weakness, numbness and headaches. Hematological: Negative for adenopathy. Does not bruise/bleed easily. Psychiatric/Behavio ral: Negative for agitation and behavioral problems. Objective BP 170/120 Pulse 115 Temp 37.4 ?C (99.3 ?F) Resp 21 Wt 100.1 kg (220 lb 9.6 oz) LMP 07/03/2021 SpO2 98% BMI 35.61 kg/m? Physical Exam Vitals and nursing note reviewed. Constitutional: General: She is not in acute distress. Appearance: Normal appearance. She is normal weight. She is not ill-appearing, toxic-appearing or diaphoretic. HE (more content not included)... Normal [facility] Culture, urineOrdered By: Dr Hunter Stevens on 03-16-2022 Bacteria identified Cx Nom (U) Mixed Gram Pos & Gram Neg Org [facility] Absolute lymphocyte countOrd ered By: Dr. Stevens on 03-14-2022 Lymphocytes Auto (Unsp spec) [#/Vol] 1.87 10*3/uL 0.83-4.51 [facility] Basophil percentageOrdered B y: Dr. Stevens on 03-14-2022 Basophils/100 WBC (Bld) 0.9 % 0-1 [facility] Chloride [Moles/Vol] 107 mmol/L 98-107 [facility] Eosinophils/100 WBC (Bld) 5.1 % 0-5 [facility] Glucose [Mass/Vol] 91 mg/dL 74-106 [facility] Neutrophils (Bld) [#/Vol] 4.0 10*3/uL 2.0-7.7 [facility] Neutrophils/100 WBC (Bld) 60.2 % 47-70 [facility] Potassium [Moles/Vol] 4.2 mmol/L 3.5-5.1 [facility] Sodium [Moles/Vol] 140 mmol/L 136-145 [facility] WBC (Bld) [#/Vol] 6.7 10*3/uL 4.4-11.0 [facility] Blood erythrocytes count (nu mber/volume)Ordered By: Dr. Stevens on 03-14-2022 RBC (Bld) [#/Vol] 4.82 10*6/uL 4.2-5.4 [facility] Blood hemoglobin measurement (mass/volume)Ordered By: Dr. Stevens on 03-14-2022 Hemoglobin (Bld) [Mass/Vol] 14.5 g/dL 12.0-15.0 [facility] Blood lymphocytes/100 leukoc ytesOrdered By: Dr. Stevens on 03-14-2022 Lymphocytes/100 WBC (Bld) 28.0 % 19-41 [facility] Blood monocytes/100 leukocyt esOrdered By: Dr. Stevens on 03-14-2022 Monocytes/100 WBC (Bld) 5.7 % 0-10 [facility] Blood platelet mean volumeOr dered By: Dr. Stevens on 03-14-2022 Platelet mean volume (Bld) [Entitic vol] 10.7 fL 6.2-12.0 [facility] Determination of erythrocyte mean corpuscular volume (MCV)Ordered By: Dr. Stevens on 03-14-2022 MCV (RBC) [Entitic vol] 89.0 fL 81-99 [facility] Hematocrit Auto (Bld) [Volum e fraction]Ordered By: Dr. Stevens on 03-14-2022 Hematocrit (Bld) [Volume fraction] 42.9 % 37-47 [facility] Laboratory - Chemistry and C hemistry - challengeOrdered By: Dr. Stevens on 03-14-2022 CO2 [Moles/Vol] 27.0 mmol/L 21.0-32.0 [facility] Urea nitrogen/Creatinine [Mass ratio] 16.6 mg/mg 10-20 [facility] - Hematology and Cell countsOrdered By: Dr. Stevens on 03-14-2022 Erythrocyte distribution width (RBC) [Entitic vol] 38.3 fL 35.1-43.9 [facility] Erythrocyte distribution width (RBC) [Ratio] 11.8 % 11.6-14.6 [facility] Immature granulocytes/100 WBC (Bld) 0.100 % 0.0-0.9 [facility] Comment on above: IG% - Immature Granu locytes (promyelocytes, myelocytes and metamyelocytes) > 1% indicates that a LEFT SHIFT is Present. MCH (RBC) [Entitic mass] 30.1 pg 27.0-32.0 [facility] Nucleated RBC/100 WBC (Bld) [Ratio] 0 % 0-5 [facility] MCHC Auto (RBC) [Mass/Vol]Or dered By: Dr. Stevens on 03-14-2022 MCHC (RBC) [Mass/Vol] 33.8 g/dL 32-36 [facility] No Panel InformationOrdered By: Dr. Stevens on 03-14-2022 Estimated GFR (MDRD) Amer 120 mL/min >60 [facility] Comment on above: GFR Calc Estimated GFR (MDRD) Non-Af Amer 99 mL/min >60 [facility] Comment on above: Non- GFR Calc Platelets bldOrdered By: Dr. Stevens on 03-14-2022 Platelets (Bld) [#/Vol] 256 10*3/uL 150-450 [facility] Serum or plasma calcium mitchell urement (mass/volume)Ordered By: Dr. Stevens on 03-14-2022 Calcium [Mass/Vol] 8.9 mg/dL 8.5-10.1 [facility] Serum or plasma creatinine m easurement (mass/volume)Ordered By: Dr. Stevens on 03-14-2022 Creatinine [Mass/Vol] 0.72 mg/dL 0.55-1.02 [facility] Comment on above: The validity of the calculated GFR & GFRAA in patients over 70 years has not been determined. Clinical correlation is essential. Serum or plasma urea nitroge n measurement (mass/volume)Ordered By: Dr. Stevens on 03-14-2022 Urea nitrogen [Mass/Vol] 12 mg/dL 7-18 [facility] Thin prep Papanicolaou smear with manual screeningOrdered By: Dr. Stevens on 03-14-2022 Thin prep Papanicolaou smear with manual screening 6 5-15 [facility] Absolute lymphocyte counton 09-13-2022 Lymphocytes Auto (Unsp spec) [#/Vol] 3.31 10*3/uL 0.83-4.51 [facility] Work Phone: Basophil percentageon 2021 Basophils/100 WBC (Bld) 0.6 % 0-1 [facility] Work Phone: [phone] Chloride [Moles/Vol] 107 mmol/L 98-107 [facility] Work Phone: [phone] Eosinophils/100 WBC (Bld) 3.9 % 0-5 [facility] Work Phone: [phone] Glucose [Mass/Vol] 99 mg/dL 74-106 [facility] Work Phone: [phone] Neutrophils (Bld) [#/Vol] 5.0 10*3/uL 2.0-7.7 [facility] Work Phone: [phone] Neutrophils/100 WBC (Bld) 52.9 % 47-70 [facility] Work Phone: [phone] Potassium [Moles/Vol] 3.3 mmol/L 3.5-5.1 [facility] Work Phone: [phone] Sodium [Moles/Vol] 141 mmol/L 136-145 [facility] Work Phone: [phone] WBC (Bld) [#/Vol] 9.4 10*3/uL 4.4-11.0 [facility] Work Phone: [phone] Basophil percentage 0 SEEN /hpf 0-5 [facility] Work Phone: Bilirubin Test strip Ql (U)o n 11-21-2021 Bilirubin Ql (U) Negative Negative [facility] Work Phone: Blood erythrocytes count (nu mber/volume)on 11-21-2021 RBC (Bld) [#/Vol] 4.75 10*6/uL 4.2-5.4 [facility] Work Phone: Blood hemoglobin measurement (mass/volume)on 11-21-2021 Hemoglobin (Bld) [Mass/Vol] 14.1 g/dL 12.0-15.0 [facility] Work Phone: Blood lymphocytes/100 leukoc yteson 11-21-2021 Lymphocytes/100 WBC (Bld) 35.1 % 19-41 [facility] Work Phone: Blood monocytes/100 leukocyt eson 11-21-2021 Monocytes/100 WBC (Bld) 7.2 % 0-10 [facility] Work Phone: Blood platelet mean volumeon 11-21-2021 Platelet mean volume (Bld) [Entitic vol] 10.1 fL 6.2-12.0 [facility] Work Phone: Determination of erythrocyte mean corpuscular volume (MCV)on 11-21-2021 MCV (RBC) [Entitic vol] 86.7 fL 81-99 [facility] Work Phone: Hematocrit Auto (Bld) [Volum e fraction]on 11-21-2021 Hematocrit (Bld) [Volume fraction] 41.2 % 37-47 [facility] Work Phone: Ketones Test strip Ql (U)on 11-21-2021 Ketones Ql (U) 5 mg/dl Negative [facility] Work Phone: Laboratory - Chemistry and C hemistry - challengeon 11-21-2021 CO2 [Moles/Vol] 28.0 mmol/L 21.0-32.0 [facility] Work Phone: Urea nitrogen/Creatinine [Mass ratio] 16.8 mg/mg 10-20 [facility] Work Phone: HCG ( test) Ql (U) Negative [facility] Work Phone: Comment on above: Very dilute urine sp ecimens, as indicated by a low specificgravity, may not contain sales and merchandising representative levels of hCG. If is still suspected, a first morning urinespecimen should be collected 48 hours later and tested. Laboratory - Hematology and Cell countson 11-21-2021 Erythrocyte distribution width (RBC) [Entitic vol] 36.5 fL 35.1-43.9 [facility] Work Phone: Erythrocyte distribution width (RBC) [Ratio] 11.4 % 11.6-14.6 [facility] Work Phone: Immature granulocytes/100 WBC (Bld) 0.300 % 0.0-0.9 [facility] Work Phone: Comment on above: IG% - Immature Granu locytes (promyelocytes, myelocytes and metamyelocytes) > 1% indicates that a LEFT SHIFT is Present. MCH (RBC) [Entitic mass] 29.7 pg 27.0-32.0 [facility] Work Phone: Nucleated RBC/100 WBC (Bld) [Ratio] 0 % 0-5 [facility] Work Phone: MCHC Auto (RBC) [Mass/Vol]on 11-21-2021 MCHC (RBC) [Mass/Vol] 34.2 g/dL 32-36 [facility] Work Phone: Mucus LM Ql (Urine sed)on Mucus Ql (Urine sed) 1+ /hpf [facility] Work Phone: Comment on above: Previous reported re sult: 0 SEEN /hpfEdited by: JORDIN on 11/21/21:1939 AMENDED REPORT 11/21/211939 MUCUS, URINE previously reported as: 0 SEEN /hpf Nitrite Test strip Ql (U)on 11-21-2021 Nitrite Ql (U) Negative Negative [facility] Work Phone: No Panel Informationon 11-21 Estimated Creatinine Clearance Calc 87.56 ml/min [facility] Work Phone: Estimated GFR (MDRD) Amer 102 mL/min >60 [facility] Work Phone: Comment on above: GFR Calc Estimated GFR (MDRD) Non-Af Amer 84 mL/min >60 [facility] Work Phone: Comment on above: Non- GFR Calc Platelets bldon 11-21-2021 Platelets (Bld) [#/Vol] 281 10*3/uL 150-450 [facility] Work Phone: Protein Test strip Ql (U)on 11-21-2021 Protein Ql (U) 15 mg/dl Negative [facility] Work Phone: Serum or plasma calcium mitchell urement (mass/volume)on 11-21-2021 Calcium [Mass/Vol] 9.3 mg/dL 8.5-10.1 [facility] Work Phone: Serum or plasma creatinine m easurement (mass/volume)on 11-21-2021 Creatinine [Mass/Vol] 0.83 mg/dL 0.55-1.02 [facility] Work Phone: Comment on above: The validity of the calculated GFR & GFRAA in patients over 70 years has not been determined. Clinical correlation is essential. Serum or plasma urea nitroge n measurement (mass/volume)on 11-21-2021 Urea nitrogen [Mass/Vol] 14 mg/dL 7-18 [facility] Work Phone: Squamous epithelial cells de tection in urine sediment by light microscopyon 11-21-2021 Epithelial cells.squamous LM Ql (Urine sed) 0-5 SEEN /hpf 5-10 [facility] Work Phone: Comment on above: Previous reported re sult: 0 SEEN /hpfEdited by: JORDIN on 11/21/21:1939 AMENDED REPORT 11/21/211939 SQUAM EPI previously reported as: 0 SEEN /hpf Thin prep Papanicolaou smear with manual screeningon 11-21-2021 Thin prep Papanicolaou smear with manual screening 6 5-15 [facility] Work Phone: Urine blood detectionon 11-09 RBC Ql (U) 10 /ul Negative [facility] Work Phone: RBC Ql (U) 0-5 SEEN /hpf 0-5 [facility] Work Phone: Comment on above: Previous reported re sult: 0 SEEN /hpfEdited by: JORDIN on 11/21/21:1939 AMENDED REPORT 11/21/211938 RBC-UA previously reported as: 0 SEEN /hpf Urine clarityon 11-21-2021 Clarity (U) Clear Clear [facility] Work Phone: Urine color determinationon 11-21-2021 Color (U) Yellow Yellow [facility] Work Phone: Urine glucose detectionon Glucose Ql (U) Normal mg/dl Normal [facility] Work Phone: Urine leukocyte esterase det ection by dipstickon 11-21-2021 Leukocyte esterase Test strip Ql (U) Negative Negative [facility] Work Phone: Urine pHon 11-21-2021 pH (U) 6.0 [pH] 5.0 - 8.0 [facility] Work Phone: Urine sediment bacteria coun t by microscopy (number/high power field)on 11-21-2021 Bacteria LM.HPF (Urine sed) [#/Area] 1 /[HPF] None Seen [facility] Work Phone: Comment on above: Previous reported re sult: 0 SEEN /hpfEdited by: JORDIN on 11/21/21:1940 AMENDED REPORT 11/21/211939 BACTERIA previously reported as: 0 SEEN /hpf Urine specific gravity measu rementon 11-21-2021 Specific gravity (U) [Rel density] 1.025 1.002-1.030 [facility] Work Phone: Urobilinogen Auto test strip Ql (U)on 11-21-2021 Urobilinogen Ql (U) Normal mg/dl Normal [facility] Work Phone: Basophil percentageon 2021 Bilirubin [Mass/Vol] 0.20 mg/dL 0.20-1.00 [facility] Work Phone: Comment on above: For patients on eltr ombopag therapy, use of Dimension [place] TBIL is not recommended. Chloride [Moles/Vol] 106 mmol/L 98-107 [facility] Work Phone: Cholesterol [Mass/Vol] 183 mg/dL <200 [facility] Work Phone: Comment on above: <200 mg/dL Desirable 200-240 mg/dL Borderline >240 mg/dL High Risk Glucose [Mass/Vol] 95 mg/dL 74-106 [facility] Work Phone: Potassium [Moles/Vol] 3.4 mmol/L 3.5-5.1 [facility] Work Phone: Protein [Mass/Vol] 7.3 g/dL 6.4-8.2 [facility] Work Phone: Sodium [Moles/Vol] 138 mmol/L 136-145 [facility] Work Phone: Triglyceride [Mass/Vol] 158 mg/dL <199 [facility] Work Phone: Comment on above: The drugs N-Acetylcy steine and Metamizole may falsely depress this assay.Serum Triglycerides Reference Interval Normal <150 mg/dL Borderline high 150 - 199 mg/dL High 200 - 499 mg/dL Very High > or = 500 mg/dL WBC (Bld) [#/Vol] 11.3 10*3/uL 4.4-11.0 [facility] Work Phone: Blood erythrocytes count (nu mber/volume)on 08-17-2021 RBC (Bld) [#/Vol] 4.57 10*6/uL 4.2-5.4 [facility] Work Phone: Blood hemoglobin measurement (mass/volume)on 08-17-2021 Hemoglobin (Bld) [Mass/Vol] 13.6 g/dL 12.0-15.0 [facility] Work Phone: Blood platelet mean volumeon 08-17-2021 Platelet mean volume (Bld) [Entitic vol] 10.7 fL 6.2-12.0 [facility] Work Phone: Determination of erythrocyte mean corpuscular volume (MCV)on 08-17-2021 MCV (RBC) [Entitic vol] 88.2 fL 81-99 [facility] Work Phone: Hematocrit Auto (Bld) [Volum e fraction]on 08-17-2021 Hematocrit (Bld) [Volume fraction] 40.3 % 37-47 [facility] Work Phone: Laboratory - Chemistry and C hemistry - challengeon 08-17-2021 ALP [Catalytic activity/Vol] 90 U/L 45-117 [facility] Work Phone: ALT [Catalytic activity/Vol] 36 U/L 13-56 [facility] Work Phone: CO2 [Moles/Vol] 25.0 mmol/L 21.0-32.0 [facility] Work Phone: Globulin (S) [Mass/Vol] 3.3 g/dL 2.2-4.2 [facility] Work Phone: Urea nitrogen/Creatinine [Mass ratio] 14.4 mg/mg 10-20 [facility] Work Phone: Laboratory - Hematology and Cell countson 08-17-2021 Erythrocyte distribution width (RBC) [Entitic vol] 37.8 fL 35.1-43.9 [facility]: Erythrocyte distribution width (RBC) [Ratio] 11.8 % 11.6-14.6 [facility] Work Phone: MCH (RBC) [Entitic mass] 29.8 pg 27.0-32.0 [facility] Work Phone: MCHC Auto (RBC) [Mass/Vol]on 08-17-2021 MCHC (RBC) [Mass/Vol] 33.7 g/dL 32-36 [facility] Work Phone: No Panel Informationon 08-17 Estimated GFR (MDRD) Amer 113 mL/min >60 [facility] Work Phone: Comment on above: GFR Calc Estimated GFR (MDRD) Non-Af Amer 93 mL/min >60 [facility] Work Phone: Comment on above: Non- GFR Calc Thyroid Stimulating Hormone (TSH) 1.32 uIU/mL 0.358-3.74 [facility] Work Phone: Platelets bldon 08-17-2021 Platelets (Bld) [#/Vol] 254 10*3/uL 150-450 [facility] Work Phone: Serum or plasma albumin mitchell urement (mass/volume)on 08-17-2021 Albumin [Mass/Vol] 4.0 g/dL 3.2-5.0 [facility] Work Phone: Serum or plasma albumin/glob ulin mass ratioon 08-17-2021 Albumin/Globulin [Mass ratio] 1.2 {ratio} 0.9-2.4 [facility] Work Phone: Serum or plasma calcium mitchell urement (mass/volume)on 08-17-2021 Calcium [Mass/Vol] 9.2 mg/dL 8.5-10.1 [facility] Work Phone: Serum or plasma cholesterol in HDL measurement (mass/volume)on 08-17-2021 Cholesterol in HDL [Mass/Vol] 33 mg/dL >40 [facility] Work Phone: Comment on above: The drugs N-Acetylcy steine and Metamizole may falsely depress this assay. Reference Range HDL <40 mg/dL Low HDL Cholesterol HDL >or= 60 mg/dL High HDL Cholesterol Serum or plasma cholesterol in VLDL measurement (mass/volume)on 08-17-2021 Cholesterol in VLDL [Mass/Vol] 32 mg/dL 5-40 [facility] Work Phone: Serum or plasma creatinine m easurement (mass/volume)on 08-17-2021 Creatinine [Mass/Vol] 0.76 mg/dL 0.55-1.02 [facility] Work Phone: Comment on above: The validity of the calculated GFR & GFRAA in patients over 70 years has not been determined. Clinical correlation is essential. Serum or plasma low density lipoprotein (LDL) cholesterol measurement (mass/volume)on 08-17-2021 Cholesterol in LDL [Mass/Vol] 118 mg/dL 0-130 [facility] Work Phone: Serum or plasma urea nitroge n measurement (mass/volume)on 08-17-2021 Urea nitrogen [Mass/Vol] 11 mg/dL 7-18 [facility] Work Phone: Thin prep Papanicolaou smear with manual screeningon 08-17-2021 Thin prep Papanicolaou smear with manual screening 16 U/L 15-37 [facility] Work Phone: Thin prep Papanicolaou smear with manual screening 7 5-15 [facility] Work Phone: Vital Signs Date Time Vital Sign Value Performing Clinician Facility 03-10-2023 01:46-0500 Heart rate 89 /min [facility] 03-10-2023 01:46-0500 Respiratory rate 16 /min [facility] 03-10-2023 01:24-0500 Body height 165.1 cm [facility] 03-10-2023 01:24-0500 Body mass index (BMI) [Ratio] 36.2 kg/m2 [facility] 03-10-2023 01:24-0500 Body temperature 96.9 [degF] [facility] 03-10-2023 01:24-0500 Body weight 98.7 kg [facility] 03-10-2023 01:24-0500 Diastolic blood pressure 125 mm[Hg] [facility] 03-10-2023 01:24-0500 SaO2% (BldA) [Mass fraction] 95 % [facility] 03-10-2023 01:24-0500 Systolic blood pressure 194 mm[Hg] [facility] 12-11-2022 16:52-0400 Diastolic blood pressure 92 mm[Hg] [facility] 12-11-2022 16:52-0400 Heart rate 105 /min [facility] 12-11-2022 16:52-0400 Respiratory rate 22 /min [facility] 12-11-2022 16:52-0400 SaO2% (BldA) [Mass fraction] 96 % [facility] 12-11-2022 16:52-0400 Systolic blood pressure 182 mm[Hg] [facility] 12-11-2022 15:07-0400 Body mass index (BMI) [Ratio] 36.3 kg/m2 [facility] 12-11-2022 15:07-0400 Body temperature 97.2 [degF] [facility] 12-11-2022 15:07-0400 Body weight 99.24 kg [facility] 08-27-2022 14:34-0400 Body temperature 99.3 [degF] Ochoa Estevez METHODS ANALYST.PROCESSING CLERK Work Phone: [facility] 08-27-2022 14:34-0400 Body weight 100.06 kg Ochoa Estevez METHODS ANALYST.PROCESSING CLERK Work Phone: [facility] 08-27-2022 14:34-0400 Diastolic blood pressure 120 mm[Hg] Ochoa Estevez METHODS ANALYST.PROCESSING CLERK Work Phone: [facility] 08-27-2022 14:34-0400 Heart rate 115 /min Ochoa Estevez METHODS ANALYST.PROCESSING CLERK Work Phone: [facility] 08-27-2022 14:34-0400 Respiratory rate 21 /min Ochoa Estevez METHODS ANALYST.PROCESSING CLERK Work Phone: [facility] 08-27-2022 14:34-0400 SaO2% (BldA) [Mass fraction] 98 % Ochoa Estevez METHODS ANALYST.PROCESSING CLERK Work Phone: [facility] 08-27-2022 14:34-0400 Systolic blood pressure 170 mm[Hg] Ochoa Estevez METHODS ANALYST.PROCESSING CLERK Work Phone: [facility] 11-21-2021 21:02-0400 Diastolic blood pressure 76 mm[Hg] [facility] Work Phone: 11-21-2021 21:02-0400 Heart rate 86 /min [facility] Work Phone: 11-21-2021 21:02-0400 Respiratory rate 15 /min [facility] Work Phone: 11-21-2021 21:02-0400 SaO2% (BldA) [Mass fraction] 98 % [facility] Work Phone: 11-21-2021 21:02-0400 Systolic blood pressure 158 mm[Hg] [facility] Work Phone: 11-21-2021 17:39-0400 Body height 165.1 cm [facility] Work Phone: 11-21-2021 17:39-0400 Body mass index (BMI) [Ratio] 35.4 kg/m2 [facility] Work Phone: 11-21-2021 17:39-0400 Body temperature 97.2 [degF] [facility] Work Phone: 11-21-2021 17:39-0400 Body weight 96.61 kg [facility] Work Phone: 07-11-2021 14:15-0400 Body temperature 98.01 [degF] Penelope Mills APRN.PROCESSING CLERK Work Phone: [facility] 07-11-2021 14:15-0400 Body weight 101.06 kg Penelope Mills APRN.PROCESSING CLERK Work Phone: [facility] 07-11-2021 14:15-0400 Diastolic blood pressure 100 mm[Hg] Penelope Mills APRN.PROCESSING CLERK Work Phone: [facility] 07-11-2021 14:15-0400 Heart rate 98 /min Penelope Mills APRN.PROCESSING CLERK Work Phone: [facility] 07-11-2021 14:15-0400 Respiratory rate 16 /min Penelope Mills APRN.PROCESSING CLERK Work Phone: [facility] 07-11-2021 14:15-0400 SaO2% (BldA) [Mass fraction] 97 % Penelope Mills APRN.PROCESSING CLERK Work Phone: [facility] 07-11-2021 14:15-0400 Systolic blood pressure 150 mm[Hg] Penelope Mills APRN.PROCESSING CLERK Work Phone: [facility] Encounters Encounter Date Encounter Type Care Provider Facility Start: 11-02-2024 ambulatory Terence Stevens Facilit y:[facility] Start: 10-28-2024 ambulatory Terence Stevens Facilit y:[facility] Start: 09-18-2024 End: 09-18-[address] Terence Stevens MD Work Phone: -[facility] [place] Start: 09-18-2024 End: 09-18-[address] Terence Stevens MD -[facility] [place] Work Phone: Start: 09-18-2024 End: 09-18-2024 ambulatory Terence Stevens Facility:[facility] Start: 07-09-2024 End: 07-09-[address] Terence Stevens MD Work Phone: [facility] Work Phone: Start: 07-09-2024 End: 07-09-2024 Patient encounter procedure Markell Albarran MARKETING SENIOR RECRUITER-C -Laboratory, Specimen Work Phone: Start: 07-09-2024 End: 07-09-2024 ambulatory Markell Albarran Facility:[facility] Start: 01-31-2024 End: 01-31-2024 ambulatory Terence Stevens Facility:[facility] Start: 01-13-2024 End: 01-13-2024 ambulatory Terence Stevens Facility:[facility] Start: 12-30-2023 End: 12-30-2023 ambulatory Terence Stevens Facility:[facility] Start: 06-11-2023 End: 06-11-[address] Terence Stevens Work Phone: [facility] Work Phone: Start: 06-11-2023 End: 06-11-[address] Terence Stevens Work Phone: [facility]-Laboratory Work Phone: Start: 05-07-2023 Non-patient / Non-visit Dr. Sabiha Stevens Work Phone: [facility] Start: 05-07-2023 End: 05-07-[address] Terence Stevens Work Phone: [facility] Work Phone: Start: 05-07-2023 End: 05-07-[address] Terence Stevens Work Phone: [facility]-Cardiovascular Services Work Phone: Start: 04-30-2023 End: 04-30-2023 ambulatory [facility] Work Phone: Start: 04-30-2023 End: 04-30-2023 Patient encounter procedure [facility] Work Phone: Start: 04-18-2023 End: 04-18-2023 ambulatory [facility] Work Phone: Start: 04-18-2023 End: 04-18-2023 Patient encounter procedure [facility] [place] Work Phone: Start: 04-11-2023 End: 04-11-2023 ambulatory TERENCE STEVENS Facility:[facility] Start: 03-10-2023 End: 03-10-2023 Emergency department patient visit [facility]-Emergency Department Work Phone: Start: 12-11-2022 End: 12-11-2022 Emergency department patient visit [facility]-Emergency Department Work Phone: Start: 08-27-2022 End: 08-27-2022 ambulatory TERENCE STEVENS Facility:[facility] Start: 08-27-2022 End: 08-27-2022 Patient encounter procedure Ochoa Estevez METHODS ANALYST.PROCESSING CLERK Work Phone: [facility] Comment on above: Acute otitis media, right (Primary Dx) Start: 03-14-2022 End: 03-14-2022 ambulatory [facility] Work Phone: Start: 03-14-2022 End: 03-14-2022 Patient encounter procedure [facility] Start: 11-21-2021 End: 11-21-2021 Emergency department patient visit [facility]-Emergency Department Start: 08-17-2021 End: 08-17-2021 Patient encounter procedure [facility] Start: 07-11-2021 End: 07-11-2021 Patient encounter procedure Penelope Gene METHODS ANALYST.PROCESSING CLERK Work Phone: [facility] Comment on above: Otalgia of both ears (Primary Dx) Procedures Date Procedure Procedure Detail Performing Clinician Start: 09-18-2024 X-ray of soft tissue of neck Dr. Terence Stevens MD Work Phone: Start: 07-09-2024 Liquid based cervica l cytology screening Dr. Terence Stevens MD Work Phone: Comment on above: NEGATIVE FOR INTRAEP ITHELIAL LESION OR MALIGNANCY. This liquid based Th inPrep(R) pap test was screened withthe use of an image guided system. Start: 04-30-2023 US urinary tract Start: 04-18-2023 Plain chest X-ray Start: 12-11-2022 Plain chest X-ray Start: 03-14-2022 Diagnostic radiograp hy of abdomen Start: 11-21-2021 CT of abdomen and pe lvis without contrast Urine culture Plan of Treatment Date Care Activity Detail Author Start: 01-10-2024 PAP TESTING PAP TESTING [facility] Start: 03-10-2023 [facility] Start: 11-09-2022 Influenza vaccination INFLUENZA (Season Ended) [facility] Start: 07-16-2022 HPV TESTING HPV TESTING [facility] Start: 03-11-2022 DEPRESSION ASSESSMENT DEPRESSION ASSESSMENT [facility] Start: 12-12-2021 Urine microalbumin profile DTAP,TDAP,TD (7 - Td or Tdap) [facility] Start: 11-09-2021 Influenza vaccination INFLUENZA (Season Ended) [facility] Start: 11-08-2007 HEPATITIS C SCREENING HEPATITIS C SCREENING [facility] Start: 2001 Adult depression screening assessment DEPRESSION SCREENING [facility] Start: 11-08-1995 PNEUMOCOCCAL (1 - PCV) PNEUMOCOCCAL (1 - PCV) [facility] Start: 1994 COVID-19 VACCINE (1) COVID-19 VACCINE (1) [facility] Start: 05-08-1990 COVID-19 VACCINE (#1) COVID-19 VACCINE (#1) [facility] Start: 1989 HEPATITIS B (1 of 3 - 3-dose series) HEPATITIS B (1 of 3 - 3-dose series) [facility] Patient Education [facility] Work Phone: Patient referral [facility] Work Phone: Immunizations Immunization Date Immunization Notes Care Provider Fahad nuñez 12-13-2011 tetanus toxoid, redu timoteo diphtheria toxoid, and acellular pertussis vaccine, adsorbed Penelope Mills APRN.PROCESSING CLERK Work Phone: [facility] 02-16-2008 human papilloma viru s vaccine, quadrivalent Penelope Mills APRN.PROCESSING CLERK Work Phone: [facility] 10-09-2007 human papilloma viru s vaccine, quadrivalent Penelope Mills APRN.PROCESSING CLERK Work Phone: [facility] Work Phone: 08-05-2007 human papilloma viru s vaccine, quadrivalent Penelope Mills METHODS ANALYST.[facility] Work Phone: [facility] Work Phone: 07-23-2002 measles, mumps and rubella virus vaccine Penelopeindra Mills APRN.PROCESSING CLERK Work Phone: [facility] Work Phone: 07-23-2002 tetanus and diphther ia toxoids, adsorbed, preservative free, for adult use (2 Lf of tetanus toxoid and 2 Lf of diphtheria toxoid) Penelope Mills APRN.[facility] Work Phone: [facility] Work Phone: 11-19-1994 diphtheria, tetanus toxoids and acellular pertussis vaccine Penelope Mills APRN.[facility] Work Phone: [facility] Work Phone: 11-19-1994 poliovirus vaccine, inactivated Penelope Mills APRN.[facility] Work Phone: [facility] Work Phone: 05-22-1991 diphtheria, tetanus toxoids and acellular pertussis vaccine Penelope Mills APRN.[facility] Work Phone: [facility] Work Phone: 05-22-1991 haemophilus influenz ae type b vaccine, conjugate unspecified formulation Penelope Mills APRN.[facility] Work Phone: [facility] Work Phone: 05-22-1991 poliovirus vaccine, inactivated Penelope Mills APRN.[facility] Work Phone: [facility] Work Phone: 02-24-1991 measles, mumps and rubella virus vaccine Penelope Mills APRN.[facility] Work Phone: [facility] Work Phone: 09-14-1990 haemophilus influenz ae type b vaccine, conjugate unspecified formulation Penelope Mills APRN.[facility] Work Phone: [facility] Work Phone: 06-30-1990 diphtheria, tetanus toxoids and acellular pertussis vaccine Penelope Mills APRN.[facility] Work Phone: [facility] Work Phone: 06-30-1990 haemophilus influenz ae type b vaccine, conjugate unspecified formulation Penelope Mills APRN.[facility] Work Phone: [facility] Work Phone: 03-17-1990 diphtheria, tetanus toxoids and acellular pertussis vaccine Penelope Mills APRN.PROCESSING CLERK Work Phone: [facility] Work Phone: 03-17-1990 poliovirus vaccine, inactivated Penelope Mills METHODS ANALYST.PROCESSING CLERK Work Phone: [facility] Work Phone: 01-22-1990 diphtheria, tetanus toxoids and acellular pertussis vaccine Penelope Mills METHODS ANALYST.PROCESSING CLERK Work Phone: [facility] Work Phone: 01-22-1990 poliovirus vaccine, inactivated Penelope Mills METHODS ANALYST.PROCESSING CLERK Work Phone: [facility] Work Phone: Payers Date Payer Category Payer Self-pay [id number] 2016 Unknown [employer] PPO OOS [id number] 2016-Present [phone] [address] [place] [address] PPO [id number] 2016 Unknown [id number] 2016 Unknown [employer] PPO OOS [id number] 2016-Present [phone] [address] [place] [address] PPO [id number] 2016 Unknown [id number] Unknown [id number] Unknown [id number] Unknown [id number] Unknown [id number] Unknown [id number] Unknown [id number] Unknown [id number] Unknown [id number] Unknown [id number] Social History Date Type Detail Facility Start: 10-26-2019 End: 08-27-2022 Tobacco smoking status NHIS Smokes tobacco daily [facility] Work Phone: End: 05-23-2011 History of tobacco use Cigarette Smoker [facility] Work Phone: Start: 10-26-2019 End: 08-27-2022 Tobacco use and exposure Smokeless tobacco non-user [facility] Work Phone: Start: 07-11-2021 End: 08-27-2022 Alcohol intake Current non-drinker of alcohol (finding) [facility] Start: 10-26-2019 End: 08-27-2022 Tobacco Comment 4 cigarettes per day [facility] Start: 1990 Sex Assigned At Not on file C [facility] Start: 07-01-2021 End: 07-11-2021 Exposure to SARS-CoV-2 (event) Not sure [facility] Start: 03-13-2021 End: 03-10-2023 Tobacco smoking status NDIS Unknown if ever smoked [facility] Start: 07-18-2020 Non-smoker [facility] Start: 1990 Sex Assigned At Female W [facility] Start: 03-10-2023 Tobacco smoking stat us NDIS Ex-smoker (finding) [facility] Clinical Notes 07-08-2013 to 09-19-2024 Ochoa Estevez APRN.PROCESSING CLERK - 08/27/2022 2:43 PM Devi Mills APRN.PROCESSING CLERK - 07/11/2021 2:25 PM EDT Note Date & Type Note Facility 09-19-2024 Radiology Diagnostic study note [facility] Imaging Services [address] [place], [place] [id number] Neck for Soft Tissue MR#: [id number] Acct: [id number] Name: EILEEN CAMERON Rep #: [id number] : 1990 F 33 From: Dorene Rosas MD PCP: Dr. Terence Stevens MD Status: RE G CLI Study:Neck for Soft Tissue Date of Exam: 09/18/24 Exam# [id number] Ordering Dr: Terence Stevens MD PROCEDURE: NECK FOR SOFT TISSUE 09/18/2024 REASON FOR EXAM: CERVICAL RADICULOPATHY TECHNIQUE: NECK FOR SOFT TISSUE COMPARISON: None FINDINGS: The vertebral alignment is maintained without evidence of fracture. Straightened cervical lordosis is seen. C5-6 end plates osteophytes are seen. Reduced C5-6 and C6-7 disc spaces and facet arthropathy, rest Intervertebral disc spaces are normal. Marginal anterior osteophytes are seen. The paraspinal soft tissues appear normal. RAD/Neck for Soft Tissue IMPRESSION: C5-6 and C6-7 levels degenerative changes. Straightened cervical lordosis in keeping with muscle spasm. No evidence of cervical vertebral fracture. Reading Location: [place] [address] CC: Dr. Terence Stevens MD ~ [employer] Supervisor: Signed [facility] 04-11-2023 Note HNO ID: [id number] Author: FREDDIE MONTERO APRN.CINDY Service: ? Author Type: Nurse Practitioner Type: Progress Notes Filed: 04/11/2023 15:57 Note Text: Subjective HPI HPI Eileen Cameron is a 32 year old female who [...] 12/18/2016 NEPHROSTOGRAM PEDS Left 12/2016 LEEP PROCEDURE ([facility] DEPT)_*FL 2013 STENT,URETERAL,PERC PLS,4.8X24 2014 insertion and [...] medication if in acceptable range. Freddie Montero APRN.PROCESSING CLERK [facility] 08-27-2022 Note HNO ID: [id number] Author: Ochoa Estevez APRN.PROCESSING CLERK Service: ? Author Type: Nurse Practitioner Type: Progress Notes Filed: 08/27/2022 5:12 PM Note Text: This note was created using Anedotriter. Subjective Eileen Cameron is a 31 year old female. 31 year old female with PMH migraines and GERD presents for complaints of illness. Acute onset 2 to 3 days ago +right ear pain. +nasal congestion +sinus pressure +post nasal drainage. Denies cough. Denies SOB Or dyspnea Denies abdominal pain. Denies N/V/D Denies tobacco usage. Denies using homeopathic or OTC BLEACH LIQUOR MAKER. The history is provided by the patient. No modern languages professor was used. Ear Pain This is a [...] 12/18/2016 NEPHROSTOGRAM PEDS Left 12/2016 LEEP PROCEDURE ([facility] DEPT)_*FL 2013 STENT,URETERAL,PERC PLS,4.8X24 2014 insertion and [...] membranes are moist. (more content not included)... [facility] 08-27-2022 History of Present illness Narrative This note was created using Anedotriter. Jose Cameron is a 31 year old female. 31 year old female with PMH migraines and GERD presents for complaints of illness. Acute onset 2 to 3 days ago +right ear pain. +nasal congestion +sinus pressure +post nasal drainage. Denies cough. Denies SOB Or dyspnea Denies abdominal pain. Denies N/V/D Denies tobacco usage. Denies using homeopathic or OTC BLEACH LIQUOR MAKER. The history is provided by the patient. No modern languages professor was used. Ear Pain This is a [...] 12/18/2016 NEPHROSTOGRAM PEDS Left 12/2016 LEEP PROCEDURE ([facility] DEPT)_*FL 2013 STENT,URETERAL,PERC PLS,4.8X24 2014 insertion and [...] 3-5 days if symptoms persist or worsen. Ochoa Estevez APRN.PROCESSING CLERK documented in this encounter [facility] 07-11-2021 History of Present illness Narrative CC: ear pain for 1 day. HPI: Eileen Cameron is a 30 year old female who [...] 12/18/2016 NEPHROSTOGRAM PEDS Left 12/2016 LEEP PROCEDURE ([employer] DEPT)_*FL 2014 STENT,URETERAL,PERC PLS,4.8X24 2015 insertion and removal ALLERGIES [...] Penelope Mills APRN.CINDY documented in this encounter [facility] 07-08-2013 History of Past i llness Narrative Problem Noted Date Resolved Date LSIL (low grade squamous int raepithelial lesion) on Pap smear 07/08/2013 07/14/2013 Elevated glucose 10/19/2011 03/07/2012 Overview: 11/12 - 3hr GTT normal - KK 10/18 - needs 3hr GTT - KK Supervision of normal first 07/27/2011 03/07/2012 Overview: December 13, 2011 RR_ TDAP today ASCUS on Pap smear 07/17/2011 07/08/2013 Overview: 07/29 - possible PEGGY 1 on colpo, repeat pap PP /8 - also hrhpv positive, needs colpo Papanicolaou smear of cervix with atypical squamous cells of undetermined significance (ASC-US) 07/24/2007 06/29/2011 Overview: ASCUS July 2007 - Guidelines recommend repeat pap in 12 mo (due July 2008) documented as of this encounter (statuses as of 07/11/2021) [facility]2014 History of Past illness Narrative* Problem Noted Date Resolved Date LSIL (low grade squamous int raepithelial lesion) on Pap smear 07/08/2013 07/14/2013 Elevated glucose 10/19/2011 03/07/2012 Overview: 11/12 - 3hr GTT normal - KK 10/18 - needs 3hr GTT - KK Supervision of normal first 07/27/2011 03/07/2012 Overview: December 13, 2011 RR_ TDAP today ASCUS on Pap smear 07/17/2011 07/08/2013 Overview: 07/29 - possible PEGGY 1 on colpo, repeat pap PP 5/8 - also hrhpv positive, needs colpo Papanicolaou smear of cervix with atypical squamous cells of undetermined significance (ASC-US) 07/24/2007 06/29/2011 Overview: ASCUS July 2007 - Guidelines recommend repeat pap in 12 mo (due July 2008) documented as of this encounter (statuses as of 08/28/2022) [facility] Stevie Freeman [facility] March 10, 2023 3:05am Note Date/Time March 10, 2023 1:30am [facility] Medical Records Department [address] [place] [address] Emergency Department Summary 03/10/23 MR#: [id number] Acct: [id number] Name: EILEEN CAMERON Rep #:[id number] : 1990 32 From: Stevie Miller PCP: Dr. Terence Stevens MD Status:RE G ER Location: ED HPI History of Present Illness Chief Complaint: Shortness of Breath PFSH PFSH Medical History Former smoker Kidney stones Home Medications NK 03/10/23 [History Last Taken Unknown] albuterol sulfate 90 mcg/actuation aerosol inhaler (Ventolin HFA) 2 puff inhalation Q4H PRN PRN Wheezing #8.5 grams 03/10/23 [Rx Last Taken Unknown] prednisone 20 mg tablet 20 mg PO DAILY #5 tabs 03/10/23 [Rx Last Taken Unknown] Allergy/AdvReac Type Severity Reaction Status Date / Time No Known Allergies Allergy Verified 12/11/22 15:06 Surgical History History of removal of ureteral stent S/P ureteral stent placement Social History Smoking Status: Former smoker EXAM Physical Exam Const Vital Signs: 03/10/23 01:24 03/10/23 01:26 03/10/23 01:46 Temperature 96.9 F L Temperature Source Temporal Pulse Rate 109 H 89 Respiratory Rate 24 H 16 Respiratory Effort Normal Non-Labored Respiratory Depth Normal Respiratory Pattern Normal Blood Pressure 194/125 H Blood Pressure Mean 148 Pulse Ox 95 Oxygen Delivery Method Room Air Room Air MDM MDM MDM Narrative Medical decision making narrative: HISTORY OF PRESENT ILLNESS: 32-year-old female presents with shortness of breath. Notes tightness and difficulty breathing that started just prior to arrival. The patient denies recent surgery in the last 4 weeks or immobilization in the last 3 days, denies previous diagnosis of DVT or PE, hemoptysis, unilateral leg swelling or malignancy with treatment the last 6 months or palliative. No estrogen use noted. REVIEW OF SYSTEMS: Pertinent positives: Shortness of breath Pertinent negatives: Chest pain, unilateral leg swelling, vomiting, fever PHYSICAL EXAM: Nursing triage notes reviewed, Vital signs reviewed Constitutional: please see mdm HENT: MMM Eyes: Pupils equal round and reactive to light, Extraocular muscles intact Neck: No stridor, no JVD, full neck ROM Lungs: Clear to auscultation, N diffuse expiratory wheezing, no rales. No increased work of breathing, no conversational dyspnea, no accessory muscle use,no nasal flaring. No respiratory distress noted Heart: Regular rate and rhythm, No murmurs, No rubs and No gallops, 2+ distal pulses (radial, femoral, posterior tibial) in all extremities Abdomen: Soft, there is no tenderness, rigidity, rebound or guarding, no obviousperitoneal signs, no palpable pulsatile abdominal masses, no auscultated abdominal bruit : No CVAT Extremities: No edema Neuro: No focal neurological deficits, cranial nerves II through XII intact, 5/5strength in all extremities. Intact sensation to light touch in all extremities,2+ reflexes bilateral patella tendons. Normal gait. No ataxia. Skin: No rash or lesions noted MEDICAL DECISION MAKING: Chief Complaint: Shortness of breath External records reviewed: Prior ED records reviewed: Seen in the ED in December 2022 for similar symptoms at that time had a negative chest x-ray. Was given breathing treatments with improvement. Factors affecting care: Kidney stone status post ureteral stent Social determinants of health: n remote history tobacco abuse History obtained from others: none Consults: none MDM Narrative: Patient is initially hypertensive, tachycardic and tachypneic she is not febrileshe is not toxic she is saturating well on room air I considered the following differential diagnosis: Obstructive lung disease, RSV, COVID, flu a PE Patient's exam is consistent with obstructive lung disease. She was given albuterol, ipratropium and prednisone. On repeat exam there is complete resolution. I suspect patient suffering from asthma. Gave albuterol prescription, prednisone prescription and PCP follow-up. The patient and/or family, caregivers express understanding. The patient and/orfamily, caregivers agrees with the plan. Shared decision making: I will have a discussion with the patient and or visitors regarding risk/benefits of further testing or admission. They will be made aware of of the risk/benefits inherent in this decision they will be given the opportunity to voice understanding. Total critical care time today provided was at least 0 minutes. This excludes separately billable procedures. Critical care time (if documented) is secondary to the patient having high probability of clinically significant/life threatening deterioration in the patient's condition which required my urgent intervention. Impression: 1. Acute asthma attack Dispo: Discharge Discharge Plan Triage Chief Complaint: Shortness of Breath ED Provider: Stevie Freeman Dx/Rx/DC Orders Instructions: ED Asthma, Acute (Adult) Prescriptions: New albuterol sulfate [Ventolin HFA] 90 mcg/actuation HFA aerosol inhaler 2 puff inhalation Q4H PRN PRN (Reason: Wheezing) Qty: 8.5 0RF prednisone 20 mg tablet 20 mg PO DAILY Qty: 5 0RF No Action NK Primary Care Provider: Terence Stevens Referrals: Terence Stevens MD [Primary Care Provider] - Activity Restrictions/Additional Instructions: Thank you for trusting us with your care today! Please take prednisone as prescribed. please use albuterol as prescribed Please return to the emergency department if your symptoms change or worsen. Please follow with your primary care physician for further outpatient evaluationand management. Disposition Disposition: Home, Self Care What to do if you have Problems For any increased pain, shortness of breath, bleeding, nausea or vomiting, chestpain, or any unexpected problems, contact your Primary Care Provider. Call [facility] ([phone]) or report to the closest Emergency Room. Call 911 if necessary. 03/10/23 0305 <Electronically signed by Stevie Freeman DO> Cosigner Signature (if applicable): CC: Dr. Terence Stevens MD ~ Signed [facility] Work Phone: Evaluation note* Diagnosis Otalgia of both ears- Primary Otalgia, unspecified documented in this encounter [facility] noteNo assessment information availableWOhio[facility] Work Phone: Evaluation note* Diagnosis Acute otitis media, right- Primary Unspecified otitis media [facility] Additional Instructions Thank you for trusting us with your care today! Please take prednisone as prescribed. please use albuterol as prescribed Please return to the emergency department if your symptoms change or worsen. Please follow with your primary care physician for further outpatient evaluation and management.[facility] Work Phone: Reason for referral (narrative)No reason for referral information availableWOhioHealth [facility] Work Phone: Advance Directives No Advanced Directives Records Found Advance Directive Response Recorded Date/ Time Advance Directives No June 01 015 1:58pm Living Will No March 13 6:03pm Power of [employer] No March 13, 022 6:03pm Advance Directive Response Recorded Date/ Time Advance Directives No June 01, 2 015 1:58pm Living Will No November 21, 2021 5:59pm Power of [employer] No November 5:59pm Advance Directive Response Recorded Date/ Time Advance Directives No June 01, 2 015 12:58pm Living Will No November 21, 2021 4:59pm Power of [employer] [address] [employer] No November 4:59pm Advance Directive Response Recorded Date/ Time Advance Directives No June 01, 2 015 12:58pm Living Will No March 10, 023 1:26am Power of [employer] No March 10, 2023 1:26am Advance Directive Response Recorded Date/ Time Advance Directives No June 01, 2 015 1:58pm Living Will No March 10, 2 023 2:26am Power of [employer] [address] [employer] No March 10, 2023 2:26am Advance Directive Response Recorded Date/ Time Advance Directives No June 01, 2 015 1:58pm Chief Complaint and Reason for Visit Chief Complaint BACK PAIN Chief Complaint LAB AND ABD XRAY Chief Complaint sob shortness of breath Chief Complaint shortness of breath early onset hypertension Chief Complaint shortness of breath early onset hypertension Essential (primary) hypertension Chief Complaint shortness of breath early onset hypertension Essential (primary) hypertension Essential (primary) hypertension Chief Complaint Admit Date cervical radiculopathy September 18, 2024 2 :47pm Summary Purpose Family History No Family History Records FoundNo Family History Records Found Additional Source Comments Source Comments (unrecognize d section and content) In the event this informatio n is protected by the Federal Confidentiality of Alcohol and Drug Abuse Patient Records regulations: The Federal rules restrict any use of the information to criminally investigate or prosecute any alcohol or drug abuse patient.[facility] HealthcareIn the event this information is protected by the Federal Confidentiality of Alcohol and Drug Abuse Patient Records regulations: The Federal rules restrict any use of the information to criminally investigate or prosecute any alcohol or drug abuse patient.[facility] Reason for Visit (unrecogniz ed section and content) Reason Comments Ear Pain bilateral ear pain r ated 8 x 1 day, denied dizziness Follow Up belly button bleedin g w/ odor x2 days Reason Comments Ear Pain Right ear pain, sinu s, congestion x 3 days Goals (unrecognized section and content) Goals may be documented in a n alternate sectionGoals may be documented in an alternate sectionGoals may be documented in an alternate sectionGoals may be documented in an alternate sectionGoals may be documented in an alternate sectionGoals may be documented in an alternate sectionGoals may be documented in an alternate sectionGoals may be documented in an alternate sectionGoals may be documented in an alternate sectionGoals may be documented in an alternate section Care Teams (unrecognized sec tion and content) Team Status: Active Member Role Status Dates Dr. Shahab Rodriguez MD Family Provider Active Dr. Terence Stevens MD Primary Care Provider Active Team Status: Inactive Member Role Status Dates Dr. Terence Stevens MD Primary Care Pr ovider, Attending Provider, Referring Provider Active Career Development Facilitator Relationship Specialty Start Date End Date Terence Stevens [address] [facility] [address] [place] [address] PCP - General Family Medicine 08/27/22 Team Status: Inactive Member Role Status Dates Dr. Terence Stevens MD Primary Care Provider Active Dr. Juan Barahona MD Attending Provider, Emergency Provider Active Team Status: Inactive Member Role Status Dates Dr. Terence Stevens MD Primary Care Provider Active Dr. Stevie Freeman DO Emergency Provider Active Team Status: Inactive Member Role Status Dates Dr. Terence Stevens MD Primary Care Provider Active Dr. Stevie Freeman DO Attending Provider, Emergency P rovider Active Team Status: Active Member Role Status Dates Dr. Terence Stevens MD Primary Care Provider Active Dr. Jose Ascencio MD Attending Provider Active Team Status: Active Member Role Status Dates Dr. Terence Stevens MD Primary Care Provider, Referr ing Provider Active Dr. Jose Ascencio MD Attending Provider Active Team Status: Inactive Member Role Status Dates Dr. Terence Stevens MD Primary Care Provider Active Dr. Kathy Price DO Attending Provider, Referring P rovider Active Team Status: Inactive Member Role Status Dates Dr. Terence Stevens MD Primary Care Provider Active Start: July 09, 2024 End: July 09, 2024 Markell Albarran MARKETING SENIOR RECRUITER, MARKETING SENIOR RECRUITER-C Attending Provider Active Start: July 09, 2024 End: July 09, 2024 Markell Albarran MARKETING SENIOR RECRUITER, MARKETING SENIOR RECRUITER-C Referring Provider Active Start: July 09, 2024 End: July 09, 2024 Team Status: Active Member Role/Relationship Status Dates Dr. Shahab Rodriguez MD Family Provider Active Dr. Terence Stevens MD Primary Care Provider Active Team Status: Inactive Member Role/Relationship Status Dates Dr. Terence Stevens MD Primary Care Provider Active Start: July 09, 2024 End: July 09, 2024 Markell Albarran MARKETING SENIOR RECRUITER, MARKETING SENIOR RECRUITER-C Attending Provider Active Start: July 09, 2024 End: July 09, 2024 Markell Albarran MARKETING SENIOR RECRUITER, MARKETING SENIOR RECRUITER-C Referring Provider Active Start: July 09, 2024 End: July 09, 2024 Team Status: Inactive Member Role/Relationship Status Dates Dr. Terence Stevens MD Primary Care Provider Active Start: September 18, 2024 End: September 18, 2024 Dr. Terence Stveens MD Attending Provider Active Start: September 18, 2024 End: September 18, 2024 Dr. Terence Stevens MD Referring Provider Active Start: September 18, 2024 End: September 18, 2024 INFORMATION SOURCE (unrecogn ized section and content) DATE CREATED AUTHOR 04/13/2023 [facility] DATE CREATED AUTHOR AUTHOR'S BRANDIEIZ ATION 10/30/2024 [facility] FOR RECORDS PERTAINING TO PATIENTS WHO ARE [...] BE BASED ON THE PRIMARY CLINICAL RECORDS. [facility] [employer] [facility]. provides no warranty or guarantee of the accuracy or completeness of information in this document.
== END | disposition home or self-care (01) ==
PROVIDERS: PCP Family Medicine; Referring Provider Family Medicine; Visit Provider Family Medicine
DX: M54.12 Radiculopathy, cervical region (principal)
CPT/HCPCS: 72141